=== PATIENT | female | born 1940 | race Caucasian/White ===

== ENCOUNTER 2019-08-08 10:21 | Inpatient (IN) | payer OTHER, SELFPAY ==
[2019-08-08] VITALS (28 sets, daily range): BP systolic 135–205; BP diastolic 61–129; PULSE 49–83; RESP 19–36; TEMP 34–37.1; O2SAT 84–100
--- NOTE | 2019-08-08 | ECHO_ITS ---
Patient Info Name: Jennifer Melendez Age: 78 years : 1940 Gender: Female BP: 192 / 98 mmHg Heart Rhythm: Sinus Rhythm Technical Quality: Good Exam Date: 08/08/2019 2:18 PM Exam Location: [facility] Pulmonary Patient Status: Inpatient Admit Date: 08/08/2019 Staff Ordering Physician: Semaj Chu DO Clinical Business Manager: Lio Hadley RDCS, RT Attending Provider: Neo Meyer MD Referring Physician: Vlad SOMMER; Exam Type: CA echo doppler color flow Study Info Indications I09.81 - Rheumatic heart failure Complete two-dimensional, color flow and Doppler transthoracic echocardiogram is performed. Summary 1. Left ventricular chamber dimension is mildly enlarged. 2. Left ventricular systolic function is severely reduced, estimated at 30-35%. 3. There is mildly increased left ventricular wall thickness. 4. The left ventricular diastolic function is grade III diastolic dysfunction. 5. The anterolateral wall, inferolateral wall, apical cap, and basal inferior wall are akinetic. 6. The anterior wall, apical inferior wall, and mid inferior wall are hypokinetic. 7. All other samuel appear normal. 8. Left atrial chamber dimension is mildly enlarged. 9. There is moderate aortic valve calcification. 10. There is mild aortic valve stenosis. 11. There is mild aortic valve regurgitation. 12. There is severe mitral valve regurgitation. 13. The mitral valve annulus is moderately calcified. 14. There is mild to moderate tricuspid valve regurgitation. 15. Severe pulmonary hypertension, estimated pulmonary arterial systolic pressure is 72 mmHg. 16. There is mild pulmonic regurgitation. 17. Pleural effusion is seen. Left Ventricle Left ventricular chamber dimension is mildly enlarged. Left ventricular systolic function is severely reduced, estimated at 30-35%. There is mildly increased left ventricular wall thickness. The left ventricular diastolic function is grade III diastolic dysfunction. The anterolateral wall, inferolateral wall, apical cap, and basal inferior wall are akinetic. The anterior wall, apical inferior wall, and mid inferior wall are hypokinetic. All other samuel appear normal. Right Ventricle Right ventricular chamber dimension is normal. Right ventricular systolic function is normal. Left Atria Left atrial chamber dimension is mildly enlarged. Right Atria Right atrial chamber dimension is normal. Atrial Septum Intact interatrial septum visualized by color flow imaging. Aortic Valve The aortic valve is trileaflet. There is mild aortic valve stenosis. There is mild aortic valve regurgitation. There is moderate aortic valve calcification. Pulmonic Valve The pulmonic valve is normal. There is no pulmonic valve stenosis. There is mild pulmonic regurgitation. Mitral Valve The mitral valve has thickened leaflets. There is no mitral valve stenosis. There is severe mitral valve regurgitation. The mitral valve annulus is moderately calcified. Tricuspid Valve The tricuspid valve leaflets are normal. There is no significant tricuspid valve stenosis. There is mild to moderate tricuspid valve regurgitation. Severe pulmonary hypertension, estimated pulmonary arterial systolic pressure is 72 mmHg. Other Findings Pleural effusion is seen. Pericardium/Pleural The pericardium appears normal. There is no pericardial effusion. Inferior Vena Cava Dilated inferior vena cava with <50% collapse upon inspiration consistent wi
--- NOTE | ~2019-08-08 | US_ITS ---
EXAMINATION: US renal BI DATE: 08/09/2019 10:07 INDICATION: Acute renal failure. TECHNIQUE: Multiple ultrasound grayscale images of the kidneys were obtained. COMPARISON: None. FINDINGS: The right kidney measures 9.7 x 4.6 x 4.7 cm. The left kidney measures 8.4 x 4.1 x 2.8 cm. The kidney s demonstrate increased parenchymal echogenicity, consistent with nonspecific nephropathy. There are cysts in the kidneys measuring up to 1.5 cm on the right. There is no hydronephrosis. The bladder is decompressed by a Castillo catheter. There is a small volume of ascites. IMPRESSION: 1. Mild atrophy of left kidney. No hydronephrosis. 2. Small volume of ascites. Reviewed, dictated and finalized at location A.
--- NOTE | ~2019-08-08 | XR_ITS ---
EXAMINATION: XR chest 1V portable DATE: 08/08/2019 11:07 INDICATION: Cough. Weakness. TECHNIQUE: A single frontal view of the chest was obtained. COMPARISON: None. FINDINGS: There are small right and moderate-sized left pleural effusions. There are airspace opaciti es in the perihilar regions and at the lung bases. No pneumothorax. Cardiomegaly is noted. IMPRESSION: 1. Airspace opacities in the perihilar regions and at the lung bases, likely a combination of pulmona ry edema and atelectasis. 2. Small right and moderate-sized left pleural effusions. 3. Cardiomegaly. Reviewed, dictated and finalized at location A. IMPRESSION: 1. Airspace opacities in the perihilar regions and at the lung bases, likely a combination of pulmonary edema and atelectasis. 2. Small right and moderate-sized left pleural effusions. 3. Cardiomegaly.
--- NOTE | ~2019-08-08 | XR_ITS ---
EXAMINATION: XR chest 1V portable DATE: 08/09/2019 05:55 INDICATION: Respiratory failure. TECHNIQUE: A single frontal view of the chest was obtained. COMPARISON: Chest single view 08/08/2019 FINDINGS: There are small right and moderate-sized left pleural effusions. There is a diffuse interst itial pattern in the lungs, consistent with pulmonary edema. There are airspace opacities in the lowe r lobes and lingula. No pneumothorax. Cardiomegaly is noted. The endotracheal tube tip is 2.0 cm abov e the terell. The nasogastric tube tip is in the stomach. IMPRESSION: 1. Stable small right and moderate-sized left pleural effusions. 2. Worsened airspace opacities in the lower lobes and lingula, consistent with atelectasis versus pne umonia. 3. Mild pulmonary edema. 4. Cardiomegaly. Reviewed, dictated and finalized at location A. IMPRESSION: 1. Stable small right and moderate-sized left pleural effusions. 2. Worsened airspace opacities in the lower lobes and lingula, consistent with atelectasis versus pneumonia. 3. Mild pulmonary edema. 4. Cardiomegaly.
--- NOTE | ~2019-08-08 | MR_ITS ---
EXAMINATION: MRA neck wo con, MRA brain wo con DATE: 08/15/2019 08:32 INDICATION: Stroke TECHNIQUE: 1. Magnetic resonance angiography (MRA) of the brain was performed without intravenous contrast with T1-weighted SPGR by the 3D [id number] technique. 2. Magnetic resonance angiography (MRA) of the neck was performed without intravenous contrast. Seque nces included axial 3D-time of flight T1-weighted FSPGR and axial Inhance 3D without intravenous con trast. COMPARISON: Brain MR and carotid ultrasound both dated 08/14/2019 FINDINGS: Head MRA: Left vertebral artery is dominant. Bilateral A1 and P1 segments are patent. There is asymmetric appea roger to the bilateral P1 segments with oriented decreasing signal intensity along the left posterior cerebral artery suggesting sluggish flow which could be related to a nonvisualized more distal occlu mark or significant stenosis. Suggestion of plaque with no hemodynamically, <50% significant stenoses at the bilateral carotid siphons. There is curvilinear increased signal consistent with laminar necr osis at the bilateral occipital lobes and along the right frontal lobe gyrus which also demonstrated acute infarction with restricted diffusion on the prior MRI. Postoperative change of prior suboccipit al craniectomy with small region of underlying encephalomalacia in the right cerebellum which could b e related to prior infarct, surgery or trauma. Neck MRA: 0% stenosis of both the left and right carotid bulbs relative to normal distal artery lumen diameter (NASCET criteria). There is however some motion artifact at the level of the carotid bulbs on both th e 3-D dryw-av-evezmw and enhance images and small amount of nonhemodynamically significant plaque cou ld not be excluded. Incidentally noted 2.6 cm left thyroid mass. Moderate-sized bilateral posterior l ayering pleural effusions. IMPRESSION: 1. 0% stenosis of the left and right right carotid bulbs relative to normal distal artery lumen diame ter (NASCET criteria). 2. Gradient of increasing signal intensity on the left posterior cerebral artery suggesting sluggish flow due to a nonvisualized downstream occlusion or hemodynamically significant stenosis. 3. Regions of laminar necrosis consistent with prior infarct at the bilateral occipital lobes and chilo ng the right frontal lobe gyrus. 4. Small region of encephalomalacia in the right cerebellar hemisphere underlying the prior right sub occipital craniectomy and this could represent sequela of prior infarct, trauma or surgery. 5. Moderate-sized bilateral pleural effusions. 6. 2.6 cm left thyroid nodule. Could consider thyroid ultrasound as clinically indicated and when cli nically appropriate. Reviewed, dictated and finalized at location A. IMPRESSION: 1. 0% stenosis of the left and right right carotid bulbs relative to normal dis jeanna artery lumen diameter (NASCET criteria). 2. Gradient of increasing signal intensity on the left posterior cerebral arter y suggesting sluggish flow due to a nonvisualized downstream occlusion or hemod ynamically significant stenosis. 3. Regions of laminar necrosis consistent with prior infarct at the bilateral o ccipital lobes and along the right frontal lobe gyrus. 4. Small region of encephalomalacia in the right cerebellar hemisphere underlyi ng the prior right suboccipital craniectomy and this could represent sequela of prior infarct, trauma or surgery. 5. Moderate-sized bilateral pleural effusions. 6. 2.6 cm left thyroid nodule. Could consider thyroid ultrasound as clinically indicated and when clinically appropriate.
--- NOTE | ~2019-08-08 | XR_ITS ---
EXAMINATION: XR chest ET placement EXAM DATE: 08/08/2019 18:22 INDICATION: Respiratory failure. TECHNIQUE: Portable AP frontal chest x-ray was obtained. Comparison is made to prior examination from earlier same date. FINDINGS: Endotracheal tube tip is 4 centimeters above the terell (ideal range is between 2 to 5 cm). Feeding tube tip and side-port project over left upper quadrant, adequate. There is moderate amount of right perihilar, and left basilar edema and/or pneumonia. Small to moder ate left, small right pleural effusions. There is no pneumothorax suspected. The cardiomediastinal silhouette is prominent but magnified on this AP technique. The bones and soft tissues are unremar kable. There is no significant interval change compared to prior exam. IMPRESSION: 1. NG and ET tubes in position. 2. Moderate edema and/or pneumonia. 3. Small to moderate left, small right pleural effusions. Reviewed, dictated and finalized at location A.
--- NOTE | ~2019-08-08 | XR_ITS ---
XR chest 1V portable 08/12/2019 06:29 Indication: Respiratory failure Procedure: AP portable chest Comparison: Comparison to multiple prior studies sequentially, with oldest reviewed study dated 08/07. Findings: Endotracheal tube tip 2.2 cm above the terell. Recommend retraction approximately 2 cm. Car diomegaly. There is diffuse bilateral airspace disease without significant change. Small left pleural effusion. No pneumothorax. Impression: 1: No significant change to diffuse bilateral airspace disease which may represent pneumonia or edema . 2: Small left pleural effusion. 3: Cardiomegaly. Reviewed, dictated and finalized at location A. Impression: 1: No significant change to diffuse bilateral airspace disease which may repres ent pneumonia or edema. 2: Small left pleural effusion. 3: Cardiomegaly.
--- NOTE | ~2019-08-08 | XR_ITS ---
XR chest 1V portable 08/08/2019 12:52 Indication: Ventricular tachycardia Procedure: AP portable chest Comparison: 08/08/2019 Findings: Cardiomegaly with diffuse bilateral airspace disease, likely edema. Small effusion. No acut e osseous abnormality. Impression: 1: Diffuse bilateral airspace disease, likely edema. Pneumonia less favored. 2: Small effusions. 3: Cardiomegaly. Reviewed, dictated and finalized at location A. Impression: 1: Diffuse bilateral airspace disease, likely edema. Pneumonia less favored. 2: Small effusions. 3: Cardiomegaly.
--- NOTE | ~2019-08-08 | XR_ITS ---
EXAMINATION: XR abdomen NG/feed tube insert EXAM DATE: 08/08/2019 18:22 INDICATION: Feeding tube insertion. TECHNIQUE: Frontal projection(s) of the abdomen for interpretation. There is no prior study for andrew douglas. FINDINGS: Feeding tube tip and side-port project over left upper quadrant, adequate position. Nonobs tructive upper abdominal bowel gas pattern. Small central left, small pleural effusions. Basilar airs pace disease. IMPRESSION: feeding tube in position. Reviewed, dictated and finalized at location A. IMPRESSION: feeding tube in position.
--- NOTE | ~2019-08-08 | XR_ITS ---
XR chest 1V portable 08/11/2019 06:27 Indication: Respiratory failure Procedure: AP portable chest Comparison: Comparison to multiple prior studies sequentially, with oldest reviewed study dated 08/07. Findings: Endotracheal tube tip 2.4 cm above the terell. NG tube in the stomach. Mild cardiomegaly. I mproving diffuse bilateral airspace disease. Small pleural effusions. No pneumothorax. Impression: 1: Improving bilateral airspace disease which may represent resolving edema or pneumonia. 2: Small pleural effusions. Reviewed, dictated and finalized at location A. Impression: 1: Improving bilateral airspace disease which may represent resolving edema or pneumonia. 2: Small pleural effusions.
--- NOTE | ~2019-08-08 | CT_ITS ---
EXAMINATION: CT brain wo con DATE: 08/14/2019 12:10 INDICATION: Left-sided weakness. Confusion. TECHNIQUE: Computed tomography (CT) of the head was performed without intravenous contrast. The dose- length product was 605.33 mGy-cm. The mA was adjusted according to patient size. Iterative reconstruc tion technique was employed. COMPARISON: None FINDINGS: There is right occipital craniectomy. Generalized atrophy. Chronic right occipital lobe inf arction. Chronic right cerebellar infarction. There are scattered moderate periventricular and subcor tical white matter changes, most likely related to small vessel ischemic disease (microangiopathy). C hronic right frontal lobe infarction. No acute intracranial hemorrhage, infarction, mass or mass effe ct. There is intracranial atherosclerosis. No midline shift. Paranasal sinuses and mastoids are pneum atized. Minimal mucosal thickening right sphenoid sinus. No depressed skull fractures. IMPRESSION: 1. No acute intracranial abnormality. 2: Chronic right frontal, occipital and cerebellar infarctions. Status post right occipital craniect win. 3: Chronic age-related findings. Reviewed, dictated and finalized at location A. IMPRESSION: 1. No acute intracranial abnormality. 2: Chronic right frontal, occipital and cerebellar infarctions. Status post ri ght occipital craniectomy. 3: Chronic age-related findings.
--- NOTE | ~2019-08-08 | XR_ITS ---
XR chest 1V portable 08/15/2019 15:26 Indication: Pneumonia. Procedure: AP portable chest Comparison: Comparison to multiple prior studies sequentially, with oldest reviewed study dated 04/2019. Findings: Cardiomegaly. Diffuse bilateral airspace disease. Small pleural effusions. No pneumothorax. Impression: 1: Diffuse bilateral airspace disease has progressed, most likely edema. Pneumonia less favored. 2: Small pleural effusions. 3: Cardiomegaly. Reviewed, dictated and finalized at location A. Impression: 1: Diffuse bilateral airspace disease has progressed, most likely edema. Pneumo elvis less favored. 2: Small pleural effusions. 3: Cardiomegaly.
--- NOTE | ~2019-08-08 | US_ITS ---
EXAMINATION: US carotid duplex BI EXAM DATE: 08/14/2019 17:13 INDICATION: Stroke. TECHNIQUE: Grayscale, color and pulsed Doppler images of the cervical carotid arteries were obtained . The degree of vessel stenosis is placed in one of the following categories: normal, <50% stenosis, 50-69% stenosis, >=70% stenosis but less than near-occlusion, near-occlusion, or occlusion. Note that percent stenosis relative to normal distal artery lumen diameter is indirectly measured from velocit y measurements as described by Jose A, et al. Radiology 2003; [id number]:[id number]. There is no prior study fo r comparison. FINDINGS: RIGHT SIDE: Right common carotid artery peak systolic velocity (PSV in cm/s): 56 Right bulb/internal carotid artery peak systolic velocity (PSV in cm/s): 47 Right internal carotid artery end diastolic velocity (EDV in cm/s): 18 Right ICA/CCA peak systolic ratio: 0.9 Right external carotid artery peak systolic velocity (PSV in cm/s): 92 Right vertebral artery antegrade flow: yes There is moderate carotid bulb plaque. Velocity and Doppler waveforms in the common and internal carotid arteries is normal. LEFT SIDE: Left common carotid artery peak systolic velocity (PSV in cm/s): 40 Left bulb/internal carotid artery peak systolic velocity (PSV in cm/s): 76 Left internal carotid artery end diastolic velocity (EDV in cm/s): 8.4 Left ICA/CCA peak systolic ratio: 1.9 Left external carotid artery peak systolic velocity (PSV in cm/s): 89 Left vertebral artery antegrade flow: yes There is mild carotid bulb plaque. Velocity and Doppler waveforms in the common and internal carotid arteries is normal. IMPRESSION: 1. Less than 50 percent stenosis in the right internal carotid artery. 2. Less than 50 percent stenosis in the left internal carotid artery. > Reviewed, dictated and finalized at location A.
--- NOTE | ~2019-08-08 | US_ITS ---
EXAMINATION: US venous doppler [facility] DATE: 08/10/2019 12:46 INDICATION: Respiratory failure. Positive d-dimer. TECHNIQUE: Grayscale ultrasound images without and with compression and Doppler ultrasound images of the bilateral lower extremity veins were obtained. COMPARISON: None. FINDINGS: The visualized portions of right common femoral vein, profunda (deep) femoral vein, femoral vein, pop liteal vein, posterior tibial veins, peroneal veins, and greater saphenous vein outflow are patent. Linear shadowing likely central venous catheter is seen within the left common femoral vein. The visu alized portions of left common femoral vein, profunda femoral vein, femoral vein, popliteal vein, pos terior tibial veins, peroneal veins, and greater saphenous vein outflow are patent. IMPRESSION: 1. No deep venous thrombosis in either lower limb. Reviewed, dictated and finalized at location A.
--- NOTE | ~2019-08-08 | XR_ITS ---
EXAMINATION: XR chest 1V portable DATE: 08/10/2019 06:12 INDICATION: Respiratory failure TECHNIQUE: frontal view of the chest was obtained. COMPARISON: Chest radiograph dated 08/09/2019 FINDINGS: Endotracheal tube tip 2.0 cm above the terell. Nasogastric tube extends below the left hemidiaphragm with distal tip collimated off the study. Gradient of basilar predominant hazy airspace opacities projecting over the majority of both lungs co nsistent with moderate right and small to moderate left posteriorly layering pleural effusions. More dense opacities at the lower lung zones which could represent associated atelectasis and/or pneumonia . No pneumothorax. Borderline heart size. IMPRESSION: 1. Moderate-sized right and small to moderate left pleural effusions which along with associated biba silar atelectasis and/or pneumonia appear slightly increased. 2. Borderline heart size. Reviewed, dictated and finalized at location A. IMPRESSION: 1. Moderate-sized right and small to moderate left pleural effusions which kaur g with associated bibasilar atelectasis and/or pneumonia appear slightly increa sed. 2. Borderline heart size.
--- NOTE | ~2019-08-08 | XR_ITS ---
EXAMINATION: XR chest 1V portable DATE: 08/13/2019 05:58 INDICATION: Respiratory failure TECHNIQUE: frontal view of the chest was obtained. COMPARISON: Chest radiograph dated 08/12/2019 FINDINGS: No significant interval change in bilateral perihilar and left basilar predominant opacities. Small b ilateral pleural effusions. No pneumothorax. Borderline heart size accounting for AP technique. IMPRESSION: 1. Unchanged bilateral airspace disease which could represent pulmonary edema and/or pneumonia. 2. Small bilateral pleural effusions. 3. Borderline heart size. Reviewed, dictated and finalized at location A. IMPRESSION: 1. Unchanged bilateral airspace disease which could represent pulmonary edema a nd/or pneumonia. 2. Small bilateral pleural effusions. 3. Borderline heart size.
--- NOTE | ~2019-08-08 | US_ITS ---
EXAMINATION: US right upper quadrant DATE: 08/09/2019 10:06 INDICATION: Abnormal liver function tests. TECHNIQUE: Multiple grayscale and Doppler ultrasound images of the abdomen were obtained. COMPARISON: None FINDINGS: The visualized portions of the head, body, and tail of the pancreas are normal. The liver i s normal without focal lesion. No liver surface nodularity. There is normal flow in main portal vein. The gallbladder is absent. The common duct is normal and measures 8 mm. There is a small volume of p erihepatic ascites. IMPRESSION: 1. Small volume of perihepatic ascites. Reviewed, dictated and finalized at location A.
--- NOTE | ~2019-08-08 | MR_ITS ---
EXAMINATION: MR brain/brain stem wo con EXAM DATE: 08/14/2019 14:26 INDICATION: Craniectomy. History of brain tumor removal. TECHNIQUE: Magnetic resonance imaging (MRI) of the brain/brain stem obtained without contrast. Sagitt al T1, axial diffusion, gradient echo (T2*), T1, T2, FLAIR sequences obtained. Correlation is made t o head CT from earlier same date. FINDINGS: There are surgical changes from right suboccipital craniectomy, with some small foci of gas in the craniectomy surgical bed better visualized on head CT. There is restricted diffusion, small scattered foci of acute infarctions in the left occipital lobe. There is also small to moderate-sized acute infarction in the right frontal lobe. These are probably 1-3 days in age. 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 There is moderate microangiopathy an d cerebral atrophy. No acute intracranial hemorrhage or brain mass. Bilateral cataract surgery. No ex tra-axial collections or obstructive hydrocephalus. Flow voids are seen in the cerebral arteries on t he T2 weighted sequences consistent with their expected patency. The soft tissue is unremarkable. IMPRESSION: 1. Acute small scattered left occipital lobe infarctions. 2. Acute small to moderate-sized right frontal lobe infarction. 3. 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 4. Atrophy and microangiopathy. Reviewed, dictated and finalized at location A.
--- NOTE | 2019-08-08 10:54 | ECG_ITS ---
Measurements Intervals [place] Rate: 52 P: 30 [place]: 152 QRS: 59 QRSD: 108 T: 19 QT: 492 QTc: 459 Interpretive Statements SINUS BRADYCARDIA INFERIOR ST ELEVATION MYOCARDIAL INFARCT- CONSIDER ACUTE LATERAL ST ELEVATION- CONSIDER ACUTE INJURY ABNORMAL ECG Electronically Signed On 08-08-2019 13:30:38 CDT by Joseluis Barahona D.O.
[2019-08-08] MEDS: SODIUM CHLORIDE 0.9% IV 1,000 ML 999 ML IV CONT (11:06)
[2019-08-08 11:13] LABS: Basophils Percent Auto 0.2 % (0.2-1.2); Eosinophils Percent Auto 0.2 % (0-4.4); Hemoglobin 9.9 g/dL (12.0-15.0); Immature Granulocyte Percent A 0.8 % (0-0.5); Lymphocytes Absolute Auto 1.72 K/mm3 (0.9-3.2); Lymphocytes Percent Auto 13.6 % (18.3-44.2); Mean Corpuscular HGB Conc 30.9 g/dl (32-36); Mean Corpuscular Hemoglobin 26.7 pg (26-34); Mean Corpuscular Volume 86.3 fl (80-100); Mean Platelet Volume 9.9 fl (7.4-10.4); Monocytes Absolute Auto 0.8 K/mm3 (0.1-0.6); Monocytes Percent Auto 6.4 % (2.6-8.5); Neutrophils Percent Auto 78.8 % (45.5-73.1); Nucleated Red Blood Cells Perc 0.3 % (0.0-0.2); Platelet Count Result 408 k/mm3 (150-375); Red Blood Count 3.71 M/mm3 (4.2-5.4); Red Cell Distribution Width 14.6 % (11.5-14.5); White Blood Count 12.6 K/mm3 (4.5-10.0)
[2019-08-08 11:25] LABS: Alanine Aminotransferase 369 U/L (4-35); Albumin Level 3.7 g/dL (3.5-5.1); Alkaline Phosphatase 109 U/L (38-126); Aspartate Amino Transferase 592 U/L (14-36); Bilirubin,Total 1.3 mg/dL (0.2-1.3); Blood Urea Nitrogen 59 mg/dL (7-17); Calcium 9.5 mg/dL (8.4-10.2); Carbon Dioxide 26 mmol/L (22-30); Chloride 100 mmol/L (98-107); Estimated Glomerular Filt Rate 15; Glucose 113 mg/dL (65-105); INR 1.5; Potassium 5.7 mmol/L (3.4-5.0); Sodium 135 mmol/L (137-145)
[2019-08-08 11:26] LABS: Partial Thromboplastin Time 27.3 SECONDS (22.3-36.8)
[2019-08-08 11:47] LABS: NT Pro B Type Natriuretic Pept > 35000 PG/ML (5-100)
[2019-08-08 11:49] LABS: Add Urine Microscopic? YES; Amorphous Sediment Urine Few; Appearance Urine Cloudy (Clear); Bacteria Urine 2+ /hpf; Bilirubin Urine Negative (Negative); Blood Urine 1+ (Negative); Color Urine Yellow (Yellow); Glucose Urine UA Negative (Negative); Ketones Urine Negative (Negative); Leukocyte Esterase Ur Negative LEU/UL (Negative); Mucus Urine Rare /lpf; Nitrate Urine Negative (Negative); Protein Urine 3+ mg/dL (Negative); RBC Urine 0-2 /hpf (0-2); Specific Grav Ur 1.019 (1.001-1.035); Urobilinogen Urine Negative mg/dL (<2.0)
[2019-08-08] MEDS: ASPIRIN 81 MG CHEWABLE TABLET 324 MG PO (12:25)
[2019-08-08] MEDS: DEXTROSE 50% 25 GM/50 ML SYRINGE IV PUSH (12:26)
[2019-08-08] MEDS: SODIUM BICARBONATE 8.4% 50 MEQ/50 ML VIAL IV PUSH (12:26)
[2019-08-08] MEDS: INSULIN HUMAN REGULAR (*BKC) 100 UNITS/ML 10 UNITS IV PUSH (12:26)
--- NOTE | 2019-08-08 12:33 | ED.GENADULT ---
HPI - General Adult General Chief complaint: Recheck/Abnormal Lab/Rx Stated complaint: Weakness Time Seen by Provider: 08/08/19 10:35 Source: RN notes reviewed History of Present Illness HPI narrative: Patient presents to emergency department from home for abnormal lab test. Patient states that she has been feeling weak for the past 5 days. States that only other associated symptom is mild shortness of breath but denies any current shortness of breath. She states she was seen by her PCP and had blood work drawn at [facility] yesterday and was called by her primary care physician and recommended come to the emergency department secondary to kidney and liver enzymes. The patient denies any fevers or chills cough chest pain abdominal pain nausea or vomiting or any other symptoms. Related Data Home Medications Medication Instructions Recorded Confirmed cimetidine 08/08/19 levothyroxine 08/08/19 metoprolol tartrate 08/08/19 quinapril mg 08/08/19 Allergies Allergy/AdvReac Type Severity Reaction Status Date / Time No Known Allergies Allergy Verified 08/08/19 11:07 Review of Systems Review of Systems: Narrative: Gen.: Denies fevers or chills Eyes: Denies eye pain or visual change ENT: Denies congestion Respiratory: Reports shortness of breath denies cough CV: Denies chest pain or palpitations GI: Denies abdominal pain nausea, emesis or diarrhea denies burning, urgency, frequency or hematuria Musculoskeletal: Denies back pain or muscle pain Neuro: Denies numbness, tingling, reports weakness Skin: Denies rash Except as documented, all other systems reviewed and negative [facility] Past Medical History Medical History CAD (coronary artery disease) Chronic kidney disease Hyperlipidemia Hypertension Family History Family History (Updated 08/08/19 @ 14:12 by Zechariah Lazaro MD) Father Acute myocardial infarction Mother Heart disease congestive heart failure Social History Social History Smoking status: Never smoker Alcohol intake: never Gender identity (if verbalized by the patient): Female Exam Narrative: Exam Narrative: APPEARANCE: No acute distress, nontoxic, resting in bed EYES: EOMI HEENT: Normocephalic, atraumatic, OMM RESPIRATORY: No respiratory distress coarse breath sounds bilateral lung bases, no wheezing CARDIOVASCULAR: Regular rate and rhythm without murmurs rubs or gallops. ABDOMINAL: Soft, nontender, nondistended, no rebound or guarding MUSCULOSKELETAl: Moves all extremities. No clubbing, cyanosis or edema. NEURO: Awake and alert. Following commands, speech normal, no focal deficits SKIN:: Warm, dry. No rashes lesions or abrasions PSYCHIATRIC: Normal affect/mood, Course Course Emergency Course: Patient with initial EKG showing questionable nonspecific ST changes in the inferior leads. The patient states she does have a history of coronary artery disease with stent placement 20 years ago. She denies having any chest pain. I did call and discussed with darrel Toney the patient's EKG and an EKG was shown to darrel Toney as well as I did take the EKG to Dr. Figueroa who personally reviewed the EKG. At this time with the patient having no chest pain it is felt that this is likely chronic change and does not feel that he meets criteria for acute STEMI Called and discussed with Dr. abelentation work-up. Agrees with admission at this time. Recommends COVID test be obtained : Discussed Dr. Rangel presentation and work-up. Agrees with consult. Request patient received Lasix 40 mg x 1. Agrees with plan for Kayexalate bicarb insulin and dextrose. Patient with sudden onset of V. tach. CODE BLUE was called. The patient was hooked up on monitor and was defibrillated x1 with return to normal sinus rhythm. The approximate approximate total time of the code was approximate
--- NOTE | 2019-08-08 12:40 | PC.NURSE ---
Addendum entered by Volodymyr Hodges RN 08/08/19 14:28: Correction Pt. went into ventricular tachycardia not v fib. Original Note: 1235 After medication administration, Pt. clinched and went into ventricular fibrilation. EDP notified karen chapman called, CPR initiated. 1237 1 shock given at 200J, compressions resumed, suctioned airway, Pt. is being ventilated via BVM. 1239 pulse check, pulse present. Compressions stopped. Pt. breathing on their own with 15L NRB. Repeat EKG ordered with repeat chest x ray.
--- NOTE | 2019-08-08 12:50 | PC.NURSE ---
Pt. weaned to 3L via nasal cannula instead of NRB. Pt. tolerating well, 99% at this time
[2019-08-08 12:57] LABS: Glucose Point of Care 100 (65-105)
[2019-08-08] MEDS: CALCIUM GLUCONATE 1,000 MG/10 ML VIAL 1000 MG IV PUSH (13:09)
[2019-08-08 13:12] LABS: D Dimer 3.66 ug/mL (<0.48)
--- NOTE | 2019-08-08 13:46 | PC.NURSE ---
Per EDP hold on giving IV Lasix and sodium polystyrene sulfonate suspension.
[2019-08-08] MEDS: HEPARIN SODIUM 5,000 UNITS/ML VIAL 2500 UNITS IV PUSH (13:59)
--- NOTE | 2019-08-08 13:59 | PM.CNCAR ---
Assessment and Plan Assessment and plan (1) Acute coronary syndrome: Code(s): I24.9 - Acute ischemic heart disease, unspecified Status: Acute Assessment and Plan: it appears to be a delayed presentation ST-elevation inferior myocardial infarction. Likely started 4-5 days ago. Will give aspirin 325 mg p.o. x1 as well as 5000 units of heparin. Case was discussed with Dr. 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 Stat 2D echocardiogram Doppler will be performed in interim. (2) History of cardiac arrest: Code(s): Z86.74 - Personal history of sudden cardiac arrest Status: Acute Assessment and Plan: ACS versus hyperkalemia versus both (3) Hyperkalemia: Code(s): E87.5 - Hyperkalemia Status: Acute (4) Acute kidney injury superimposed on chronic kidney disease: Code(s): N17.9 - Acute kidney failure, unspecified; N18.9 - Chronic kidney disease, unspecified Status: Acute Assessment and Plan: unknown baseline creatinine but she does see Dr. 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 History of Present Illness History of Present Illness Consult date/time: 08/08/19 13:59 Requesting physician: Semaj Chu DO Consult reason: Other ( abnormal labs, abnormal EKG, elevated troponin) Reason For Visit: acute renal failure,hyperkalemia,elevated troponin Narrative: patient is a 78-year-old female who I am seeing following a VF arrest in the ER. She came to the hospital because of abnormal labs . She had labs performed by her primary care provider yesterday which came back showing an elevated potassium, elevated creatinine. EKG showed inferior Q-waves with mild inferior ST elevation and some ST depressions in the high lateral leads. EKG was reviewed by Dr. Figueroa initially. Patient reportedly was not having any symptoms at that time. It was decided not to bring her immediately to the cardiac catheterization lab at that time. Subsequently, patient did sustain a VF arrest requiring standard ACLS and latter day of normal sinus rhythm. Currently she is awake and alert and oriented. Patient states that she has being feeling poorly for about 5 days. Upon detailed questioning, patient states she started have some heartburn symptoms about 4 or 5 days ago. It persisted for couple of days. Not relieved by antacids. She does have a history of previous RCA stent about 20 years ago and did have a subsequent catheterization at [facility]. Details of this are not known. This catheterization was several years ago she states. She had seen Dr. Hayes in the past but has not seen him in several years. Currently she is not having any chest pain or heartburn at this point. She is somnolent but does answer questions. She denies any significant shortness of breath, syncope, presyncope, paroxysmal nocturnal dyspnea, orthopnea, edema palpitations. Review of Systems Review of Systems: All systems reviewed & are unremarkable except as noted in HPI and below Constitutional: Constitutional: Reports weakness Eyes: Eyes: Denies blurry vision ENT: Denies Normal hearing present Cardiovascular: Cardiovascular: Denies chest pain Respiratory: Respiratory: Denies cough
--- NOTE | 2019-08-08 14:11 | WPDCNINT ---
Assessment and Plan Assessment and plan (1) Acute coronary syndrome: Code(s): I24.9 - Acute ischemic heart disease, unspecified Status: Acute Assessment and Plan: Patient appears to had IN few days ago when she when she was symptomatic and now presented late. Discuss with cardiology. Will be taken to label operator emergently in light of her arrhythmias and cardiogenic shock state despite her creatinine being elevated to see if there is any area that could be perfused. Stat echo ordered Aspirin beta-reba will be started post catheterization depending on her blood pressure hold statins due to elevated liver enzymes (2) CAD (coronary artery disease): Code(s): I25.10 - Atherosclerotic heart disease of [place] coronary artery without angina pectoris Status: Acute Assessment and Plan: history of coronary artery disease status post PCI in distant past. details unknown (3) Acute kidney injury superimposed on chronic kidney disease: Code(s): N17.9 - Acute kidney failure, unspecified; N18.9 - Chronic kidney disease, unspecified Status: Acute Assessment and Plan: KINGA precipitated over CKD likely multifactorial from cardiogenic and patient was on WES-inhibitor consult nephrology monitor electrolytes urine output and creatinine cautious slow IV fluids with bicarb at this point due to pulmonary edema (4) Hyperkalemia: Code(s): E87.5 - Hyperkalemia Status: Acute Assessment and Plan: patient received IV calcium gluconate, insulin and dextrose, sodium bicarb will repeat BMP once she is back from label operator and re-evaluate will also give dose of Kayexalate (5) Hyperlipidemia: Code(s): E78.5 - Hyperlipidemia, unspecified Status: Acute Assessment and Plan: statin when patient is able to take p.o. (6) Hypertension: Code(s): I10 - Essential (primary) hypertension Status: Acute Assessment and Plan: Nitroglycerin infusion (7) Suspected COVID-19 virus infection: Code(s): R68.89 - Other general symptoms and signs Status: Acute Assessment and Plan: COVID-19 suspected. SARS-CoV-2 PCR sent and results pending Patient is in Airborne, Droplet and Contact Isolation (8) Elevated transaminase level: Code(s): R74.0 - Nonspecific elevation of levels of transaminase and lactic acid dehydrogenase [LDH] Status: Acute Assessment and Plan: likely from hypoperfusion monitor this time hold statin check acute hepatitis panel (9) Cardiogenic shock: Code(s): R57.0 - Cardiogenic shock Status: Acute Assessment and Plan: patient is actually hypertensive but may have low cardiac output. will have more information once cardiac catheterization and echo results are available Additional Plan Case discussed with cardiology and ED physician. DVT prophylaxis - patient is on heparin drip at this time Stress ulcer prophylaxis - not indicated Nutrition - NPO. Code Status - Full Code I spoke to patient's at bedside who requested the patient be kept full code. I explained patient's current clinical situation and therapeutic plan and risk of her kidneys getting worse with cardiac catheterization and that she may may be needing dialysis if renal function does not improve. Total Critical Care Time - 60 minutes Due to a high probability of clinically significant, life threatening deterioration, the patient required my highest level of preparedness to intervene emergently and I personally spent this critical care time directly and personally managing the patient. This critical care time included obtaining a history; examining the patient; pulse oximetry; ordering and review of studies; arranging urgent treatment with development of a management plan; evaluation of patient's response to treatment; frequent reassessment; and discussions with other providers. It was exclusive of separate
--- NOTE | 2019-08-08 14:19 | ECG_ITS ---
Measurements Intervals [place] Rate: 82 P: 73 SD: 151 QRS: 83 QRSD: 112 T: -45 QT: 397 QTc: 466 Interpretive Statements SINUS RHYTHM POSSIBLE LEFT ATRIAL ENLARGEMENT INFERIOR ST ELEVATION MYOCARDIAL INFARCT, PROBABLY RECENT LATERAL ST ELEVATION- CONSIDER RECENT INJURY BASELINE WANDER- I, III, V4-V5 ABNORMAL ECG Electronically Signed On 08-08-2019 15:34:24 CDT by Joseluis Barahona D.O.
--- NOTE | 2019-08-08 15:19 | WPDCARDPROC ---
Cardiac Cath Procedure Note Date of procedure:: 08/08/19 Performing physician:: Darius Flowers MD Procedure Procedure note:: EMERGENT CARDIAC CATHETERIZATION AND PERCUTANEOUS CORONARY INTERVENTION REPORT DATE OF PROCEDURE: 08/08/2019 INDICATION FOR PROCEDURE: ACUTE CORONARY SYNDROME- inferolateral ST-elevation myocardial infarction; ventricular tachycardia status post successful resuscitation/ shock x1 BRIEF CLINICAL HISTORY: 78-year-old female with CAD, history of remote PCI/stenting of right coronary artery ( at outside hospital, intervention report not available), hypertension. Patient came to [facility] emergency room with complaints of generalized weakness and shortness of breath. Apparently, she was called by her primary care physician about abnormal lab test . Her 1st EKG performed at 10:58 a.m. in the ER showed sinus rhythm, ST segment elevation in leads 3, AVF, subtle ST elevation in leads V5, V6, reciprocal ST depression in leads 1 and aVL. Apparently, based on the information provided, patient was initially not deemed to have clinical presentation consistent with ACS . While patient was being evaluated in the ER, she had sustained ventricular tachycardia which required shock x1 with restorationist of sinus rhythm. Dr. Lazaro called me at 1331 about patient's clinical presentation, and we activated the cardiac catheterization lab for emergent cardiac catheterization. PROCEDURES PERFORMED: 1. Selective left and right coronary angiogram 2. Primary percutaneous coronary intervention- balloon angioplasty and stenting of totally occluded mid left circumflex artery using a 3.0 x 18 mm sirolimus eluting stent with good angiographic results and restorationist of TEODORA 3 flow. 3. Selective right common femoral angiogram and deployment of Angio-Seal hemostatic device 4. Moderate sedation-CPT code 43886 MODERATE SEDATION: Midazolam 1 mg; fentanyl 25 mcg. Start time 1431 , Stop time 1508 ; Total [id number] time 37 Minutes; Madai Valdez RN was trained observer for moderate sedation. ACCESS SITE: Right common femoral artery PROCEDURE NOTE: After obtaining informed consent, patient was brought to catheterization lab and prepped and draped in a usual sterile manner. After local anesthesia with lidocaine, right common femoral artery access was taken with micropuncture needle followed by insertion of a 6 Spanish sheath. Selective left and right coronary angiogram was performed using 5 Spanish JL4 and JR4 catheters respectively. Orthogonal views were taken. left ventriculogram was not performed to spare the patient from contrast burden due to renal insufficiency. Finally, after PCI, selective right common femoral angiogram was performed after PCI followed by successful deployment of Angio-Seal vascular closure device. Patient tolerated procedure well without any immediate procedure related complications. FINDINGS: LEFT MAIN CORONARY: the left main coronary artery is a medium caliber, long vessel, withminimal irregularities, and no significant focal stenosis. The vessel bifurcates into LAD and left circumflex branches. LEFT ANTERIOR DESCENDING ARTERY: The LAD is a medium-sized vessel, with diffuse disease, tapers distally and reaches LV apex. There is diffuse about 70% stenosis in the mid segment distal to the diagonal branch. Two tandem, focal stenosis, about 40-50% severity are seen in the mid segment. Major diagonal branch is a medium-sized vessel with moderate 50-70% stenosis in the mid segment. Second diagonal branch is a small-caliber vessel. [id number] collaterals are seen on the left coronary angiogram LEFT CIRCUMFLEX ARTERY: the left circumflex artery is a medium-sized vessel; with 100% thrombotic occlusion in the mid segment and TEODORA 1 flow into the OM branch. This lesion is the culprit lesion for patient's clinical presentation. The OM branch is a medium to large caliber vessel. The main LCX continues in the AV
[2019-08-08 16:57] LABS: Alveolar/Arterial O2 Gradient 207.8 mmHg; Base Excess ABG -6.9 mEq/l (+/-2.0); Device NASAL CANNULA; Fractional Inspired Oxygen 44 %; HCO3 ABG 17.8 mEq/l (22.0-26.0); Modified Allen's Test Pass; Oxygen Content ABG 13.6 %vol (16.0-22.0); Oxygen Saturation ABG 93.2 % (95.0-100.0); Oxyhemoglobin 89.8 % THb (90.0-100.0); PCO2 ABG 32.7 mmHg (35.0-45.0); PO2 ABG 68.6 mmHg (80.0-100.0); PO2 FiO2 Ratio Arterial Blood 1.56 %; Site Drawn RIGHT RADIAL; Total Hemoglobin 10.7 g/dL (12.0-18.0); pH ABG 7.353 (7.350-7.450)
--- NOTE | 2019-08-08 17:14 | ECG_ITS ---
Measurements Intervals [place] Rate: 48 P: 48 HI: 159 QRS: 61 QRSD: 112 T: -33 QT: 476 QTc: 427 Interpretive Statements SINUS BRADYCARDIA INCOMPLETE RIGHT BUNDLE BRANCH BLOCK DELAYED PRECORDIAL R/S TRANSITION INFERIOR INFARCT, PROBABLY RECENT ABNORMAL ECG Electronically Signed On 08-09-2019 7:10:31 CDT by Joseluis Barahona D.O.
--- NOTE | 2019-08-08 17:29 | PM.IMHP ---
H&P: HPI History of Present Illness Chief complaint: acute renal failure,hyperkalemia,elevated troponin Narrative: Jennifer Melendez is a 78 year old female who came to the emergency room today because of some abnormal labs. The was reporting that the patient was having some indigestion a couple days ago. The patient has been feeling weak for the past 5 days. She has been short of breath. Her primary care doctor ordered her to has some lab work done by [facility] yesterday. Her white count was noted to be 12.6. H&H is 9.9 and 32.0. Patient's D-dimer was noted to be 3.66. Potassium 5.7. Creatinine 3.0 BUN 59. GFR 15. Ferritin was noted to be 1750. Her troponin was 2.110 and 2.050. BNP was noted to be greater than 35,000. Patient was found to have a inferior leads STEMI. To the airport maintenance laborer. She had a totally occluded mid left circumflex artery and she received a drug-eluting stent. Selective right from oral angiogram and deployment of Angio-Seal hemostatic device. With moderate sedation. 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 She had 100% thrombotic occlusion of mid LCX and about 70% stenosis mid LAD 100% stenosis proximal RCA. See cath report. Patient was received into ICU after cardiac airport maintenance laborer. The patient was thrashing around and her O2 saturations decreased and her blood pressure increased. The patient was thrashing around the bed will not leave her oxygen on. I attempted to call her 2 times. I wanted to discuss code status but it was clearly noted the records that the has been wanted her to be a full code. Patient was sedated and intubated. A central line was placed as well. 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 Nephrology has also been consulted previously. Due to her acute renal failure. Patient has multiple organ dysfunction. The patient has been tested for covid 19 . We waiting results patient and she is in isolation. IV earlier. Patient had been on a nitro drip until she had sedation for intubation she was also given sodium bicarb earlier and and IV insulin for her high potassium. Date of service 08/08/2019 According to the the patient had some indigestion a couple days prior to today's events. She tried Tums and Pepcid. And symptoms relieved on its own.Patient had a previous stent placement prior to today. A code blue was called in the emergency room patient had a sudden onset of V-tach which was pulseless. She was defibrillated x1 and she was returned to normal sinus rhythm. That is when she went to the airport maintenance laborer. Review of Systems Review of Systems: ROS unobtainable: Yes unobtainable due to endotracheal tube and unobtainable due to mental status Constitutional: Constitutional: Reports as per HPI and Reports no additional constitutional complaints Eyes: Eyes: Reports as per HPI and Reports no additional eye complaints ENT: Reports system reviewed and no additional complaints, except as documented and Reports Normal hearing present Cardiovascular: Cardiovascular: Reports no additional cardiovascular complaints Respiratory: Respiratory: Reports no additional respiratory complaints and Reports no additional respiratory complaints Gastrointestinal: Gastrointestinal: Reports as per HPI and Reports no additional gastrointestinal complaints Musculoskeletal: Musculoskeletal: Reports no additional musculoskeletal complaints Integumentary/Breasts: Skin/Breast: Reports system reviewed and no additional complaints, except as docu and Reports as per HPI Neurologic: Reports system reviewed and no additional complaints, except as documented, Reports as per HPI and Reports Normal hearing present Psychiatric: Psychiatric: Reports no additional psychiatric complaints and Reports as per HPI Endocrine: Endocrine: Reports no additional endocrine complaints Hematologic/Lymphatic: Hematologic/Lymphatic: Reports no additional hematologic/lymphatic complaints Allergic/Immunologic: Allergic/Immunol
--- NOTE | 2019-08-08 18:43 | PM.CNNEP ---
Assessment and Plan Assessment and plan (1) Acute kidney injury superimposed on chronic kidney disease: Code(s): N17.9 - Acute kidney failure, unspecified; N18.9 - Chronic kidney disease, unspecified Status: Acute (2) Hyperkalemia: Code(s): E87.5 - Hyperkalemia Status: Acute (3) History of cardiac arrest: Code(s): Z86.74 - Personal history of sudden cardiac arrest Status: Acute (4) Acute coronary syndrome: Code(s): I24.9 - Acute ischemic heart disease, unspecified Status: Acute (5) Suspected COVID-19 virus infection: Code(s): R68.89 - Other general symptoms and signs Status: Acute Assessment and Plan: . Additional Plan Jennifer has what appears to be in acute insult on top of her baseline kidney disease. Unfortunately, I am not exactly sure what her baseline creatinine normally runs aside from the fact that records from 2018 showed she had a creatinine around 1.4 mg/dL as very possible that this is her baseline kidney function or per pat absent may have worsened somewhat in the last two years. It does seem clear though that she has had an acute insult if for no other reason than the fact that she had her acute cardiac event /cardiac arrest coupled with the necessity of a cardiac catheterization with subsequent contrast exposure, cardiogenic shock, and acute respiratory failure resulting in intubation and mechanical ventilation. This may further have been worsened by her outpatient use of an WES-inhibitor prior to admission as well. For further evaluation of her acute kidney injury/acute renal failure, I will check a renal ultrasound, urine electrolytes, urine senna fills, random urine protein creatinine ratio, and follow the trend of her repeat labs and urine output to assess where her kidney function is going in the context of the events of recurred over the course of this stay. Greater than 20 min was spent in detailed review of her electronic medical records as well as reviewing records from the [facility] during her hospitalization/intervention in 2018 as well as discussion with the ER physician earlier today. I will continue to follow patient with you while she remains hospitalized make further recommendations during her hospital course Thank you for allowing me to participate in the care of this patient. History of Present Illness Reason for Consult Consult date: 08/08/19 Reason for consult: acute renal failure (on chronic kidney disease) Chief Complaint Chief complaint: acute renal failure,hyperkalemia,elevated troponin History of Present Illness Narrative: All the information I have obtained is from review of the electronic medical record as well as discussion with the ER physician earlier today as the patient is unable to provide me if any history as she is currently intubated and on mechanical ventilation at the time my visit. The patient is a 78-year-old Caucaisan female With a past medical history as outlined below who presented to [facility] Emergency room at the behest of her primary care physician for abnormal labs. She recently saw her primary care physician for routine follow-up of her chronic medical issues and problems and had routine blood test performed at that time. Apparently, these labs came back abnormal with a elevated creatinine and potassium which were apparently new findings which prompted the patient's referral to the emergency room for further evaluation. Prior to these routine blood test, the patient states that she has been feeling somewhat poorly for about the last 5-7 days. Specifically, she has been having issues with heartburn symptoms unrelieved by [id number] medications. Other than that though, she had no reported issues or complaints with chest pain, dizziness, lightheadedness, orthopnea, edema, fevers, chills or any other systemic symptoms. She did relate some mild shortness of breath but did not seem to be a si
[2019-08-08] MEDS: PROPOFOL IV EMULSION 100 ML 1.4 MG IV CONT (19:00)
--- NOTE | 2019-08-08 19:07 | P.PCNBED_ITS ---
Procedures Central Line Placement Left Femoral: Central Line Date: 08/08/19 Discussed w/ the patient/family/POA,the placement of a central venous catheter, including its clinical necessity/indication & associated potential risks, benifits and alternatives.: Yes The patient/family/POA understand(s) and acknowledge(s) the need to proceed with central venous catheter insertion as an important element of the patient's clinical management.: Yes Performed Emergently - Given emergent patient condition, temporal constraints may have precluded informed consent.: Yes Time Out Performed: Yes Patient Position: supine Patient placed on monitor/pulse ox: Yes Provider Prep: mask, sterile gown, sterile gloves and Max. sterile barrier precautions Local anesthesia used: lidocaine 1% Ultrasound used for placement: Yes Central line lumen inserted: triple Belarusian: 7 Length (cm): 16 Depth of Insertion (cm): 15 Post procedure: sutured in place, good blood return, all ports aspirated, flushed, capped, tegaderm and hemostatic disc Intubation Intubation Date: 08/08/19 Intubation Time: 18:00 A pre-procedural Time-Out was completed immediately before starting the procedure and confirmed: Patient Identification, Site, Procedure, Patient Position and the Availability of Requisite Equipment: Yes Sedative: versed Mg given: 20 Laryngoscope: fiber optic video scope Assist device used: fiber optic device ET tube size: cuffed Tube secured depth (cm): 24 Tube secured location: lips Tube placement confirmation: visualized tube passing through cords Patient tolerated procedure: well Additional comments: Patient was also given 4 mg of Versed. Prior to rapid sequence intubation patient had been given 1 mg of Versed. Since patient was not sedated with a Versed she was given etomidate. Patient tolerated well.
[2019-08-08 19:40] LABS: Alveolar/Arterial O2 Gradient 215.5 mmHg; Base Excess ABG -4.3 mEq/l (+/-2.0); Fractional Inspired Oxygen 100 %; HCO3 ABG 18.1 mEq/l (22.0-26.0); Oxygen Content ABG 15.1 %vol (16.0-22.0); Oxygen Saturation ABG 99.9 % (95.0-100.0); Oxyhemoglobin 98.1 % THb (90.0-100.0); PCO2 ABG 24.8 mmHg (35.0-45.0); PO2 ABG 472.7 mmHg (80.0-100.0); PO2 FiO2 Ratio Arterial Blood 4.73 %
[2019-08-08 19:41] LABS: Device VENTILATOR; Modified Allen's Test Unable to perform; Site Drawn LEFT RADIAL
[2019-08-08 19:42] LABS: Arterial Blood Gas PEEP 8 cmH2O; Arterial Blood Gas Tidal Volume 350 ml; Arterial Blood Gas Vent Mode CMV; Arterial Blood Gas Ventilator rate 22 /MIN
[2019-08-08] MEDS: METOPROLOL TARTRATE 25 MG TABLET PO (20:12)
[2019-08-08] MEDS: TICAGRELOR 90 MG TABLET PO (20:14)
[2019-08-08 20:18] LABS: Blood Urea Nitrogen 57 mg/dL (7-17); Calcium 9.1 mg/dL (8.4-10.2); Carbon Dioxide 21 mmol/L (22-30); Chloride 102 mmol/L (98-107); Estimated Glomerular Filt Rate 14; Glucose 120 mg/dL (65-105); Potassium 5.1 mmol/L (3.4-5.0); Sodium 137 mmol/L (137-145)
--- NOTE | 2019-08-08 21:22 | ADMGEN ---
This patient, Jennifer Melendez, was admitted to Intensive Care Unit-3 at 1540. Patient/family oriented to hospital policies and general routines including ID bracelet, bed and alarms, visiting hours, pain management, procedures, bathroom and other care routines, personal items, smoking policy, room service/diet, and visiting hours. Valuables list has been completed. Information on how to activate the Rapid Response Team has been discussed. Patient/Family are encouraged to report perceived risks to care and to ask questions if they do not understand what they are told or what they should do.
[2019-08-08 21:49] LABS: Hepatitis B Surface Antigen Negative (Negative)
[2019-08-08 21:54] LABS: HAV RESULT Negative (Negative); Hepatitis B Core IgM Result Negative (Negative)
[2019-08-08] MEDS: SODIUM BICARBONATE 8.4% 150 MEQ in WATER, STERILE FOR INJECTION 950 ML 75 MEQ IV CONT (21:56)
[2019-08-08] MEDS: CENTRAL LINE FLUSH 10 ML IV PUSH (21:57)
[2019-08-08] MEDS: SODIUM POLYSTYRENE SULFONONATE 15 GM/60 ML BTL 30 GM PO (22:03)
[2019-08-08 22:06] LABS: Hepatitis C Virus Antibody Negative (Negative)
[2019-08-09] VITALS (28 sets, daily range): BP systolic 123–161; BP diastolic 56–85; PULSE 50–61; RESP 14–20; TEMP 35.5–36.8; O2SAT 100; BMI 20.9; BMI 24.1
[2019-08-09] MEDS: SODIUM CHLORIDE 0.9% IV 1,000 ML 100 ML IV CONT (02:09)
[2019-08-09 03:41] LABS: Alveolar/Arterial O2 Gradient 188.3 mmHg; Base Excess ABG 3.6 mEq/l (+/-2.0); Fractional Inspired Oxygen 50 %; HCO3 ABG 23.7 mEq/l (22.0-26.0); Oxygen Content ABG 12.7 %vol (16.0-22.0); Oxygen Saturation ABG 99.3 % (95.0-100.0); Oxyhemoglobin 96.8 % THb (90.0-100.0); PCO2 ABG 21.9 mmHg (35.0-45.0); PO2 ABG 143.6 mmHg (80.0-100.0); PO2 FiO2 Ratio Arterial Blood 2.87 %; Total Hemoglobin 9.1 g/dL (12.0-18.0); pH ABG 7.652 (7.350-7.450)
[2019-08-09 03:42] LABS: Arterial Blood Gas Vent Mode CMV; Arterial Blood Gas Ventilator rate 20 /MIN; Device VENTILATOR; Modified Allen's Test Unable to perform; Site Drawn LEFT RADIAL
[2019-08-09 03:43] LABS: Arterial Blood Gas PEEP 8 cmH2O; Arterial Blood Gas Tidal Volume 350 ml
[2019-08-09 04:51] LABS: Basophils Percent Auto 0.1 % (0.2-1.2); Hematocrit 25.5 % (37.0-47.0); Hemoglobin 8.2 g/dL (12.0-15.0); Immature Granulocyte Absolute 0.16 K/mm3 (0.00-0.031); Immature Granulocyte Percent A 0.9 % (0-0.5); Lymphocytes Absolute Auto 1.59 K/mm3 (0.9-3.2); Lymphocytes Percent Auto 9.4 % (18.3-44.2); Mean Corpuscular HGB Conc 32.2 g/dl (32-36); Mean Corpuscular Hemoglobin 27.2 pg (26-34); Mean Corpuscular Volume 84.4 fl (80-100); Mean Platelet Volume 9.7 fl (7.4-10.4); Monocytes Absolute Auto 0.8 K/mm3 (0.1-0.6); Monocytes Percent Auto 4.7 % (2.6-8.5); Neutrophils Absolute Auto 14.4 K/mm3 (1.3-6.7); Neutrophils Percent Auto 84.9 % (45.5-73.1); Nucleated Red Blood Cells Absolute Auto 0.1 K/mm3 (0.0-0.012); Nucleated Red Blood Cells Perc 0.6 % (0.0-0.2); Platelet Count Result 272 k/mm3 (150-375); Red Blood Count 3.02 M/mm3 (4.2-5.4); Red Cell Distribution Width 14.6 % (11.5-14.5); White Blood Count 16.9 K/mm3 (4.5-10.0)
[2019-08-09 04:53] LABS: Potassium 3.8 mmol/L (3.4-5.0)
[2019-08-09 05:03] LABS: Alanine Aminotransferase 500 U/L (4-35); Albumin Level 2.7 g/dL (3.5-5.1); Alkaline Phosphatase 96 U/L (38-126); Bilirubin,Total 1.3 mg/dL (0.2-1.3); Blood Urea Nitrogen 57 mg/dL (7-17); CRP 4.8 mg/dL (<1.0); Calcium 8.4 mg/dL (8.4-10.2); Carbon Dioxide 26 mmol/L (22-30); Chloride 101 mmol/L (98-107); Estimated Glomerular Filt Rate 15; Glucose 96 mg/dL (65-105); Magnesium 1.9 mg/dL (1.6-2.3); Sodium 138 mmol/L (137-145)
[2019-08-09 05:52] LABS: Aspartate Amino Transferase 843 U/L (14-36); Lactate Dehydrogenase 4316 U/L (313-618)
[2019-08-09] MEDS: CENTRAL LINE FLUSH 10 ML IV PUSH ×4 (06:00→17:23)
[2019-08-09] MEDS: FAMOTIDINE 20 MG/2 ML VIAL IV PUSH (08:50)
[2019-08-09] MEDS: ASPIRIN 81 MG ENTERIC TABLET PO (08:50)
[2019-08-09] MEDS: TICAGRELOR 90 MG TABLET PO ×2 (08:50→22:00)
[2019-08-09] MEDS: METOPROLOL TARTRATE 25 MG TABLET PO (08:51)
[2019-08-09 09:39] LABS: Creatinine Urine 79.5 mg/dL; Total Protein Urine Random 167 mg/dL
[2019-08-09 09:42] LABS: Sodium Urine Random 23 meq/L
--- NOTE | 2019-08-09 10:36 | PM.PNCARD ---
Progress Note: A&P Assessment and Plan (1) Acute coronary syndrome: Code(s): I24.9 - Acute ischemic heart disease, unspecified Status: Acute Assessment and Plan: it appears to be a delayed presentation ST-elevation inferior myocardial infarction. Likely started 4-5 days ago. Continue aspirin and Brilinta. Continue metoprolol. Holding statin secondary to elevated LFTs. Groin is stable. No hematoma ecchymosis or bruit. She will eventually need further workup regarding her significant LAD disease/occluded RCA and mitral regurgitation. (2) History of cardiac arrest: Code(s): Z86.74 - Personal history of sudden cardiac arrest Status: Acute Assessment and Plan: ACS versus hyperkalemia versus both (3) Hyperkalemia: Code(s): E87.5 - Hyperkalemia Status: Acute Assessment and Plan: Resolved (4) Acute kidney injury superimposed on chronic kidney disease: Code(s): N17.9 - Acute kidney failure, unspecified; N18.9 - Chronic kidney disease, unspecified Status: Acute Assessment and Plan: unknown baseline creatinine but she does see Dr. 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 Followed by Nephrology (5) Hyperlipidemia: Code(s): E78.5 - Hyperlipidemia, unspecified Status: Acute Assessment and Plan: Holding statin for now secondary to her elevated LFTs (6) Hypertension: Code(s): I10 - Essential (primary) hypertension Status: Acute Assessment and Plan: Increase metoprolol to 50 mg p.o. b.i.d. (7) CAD (coronary artery disease): Code(s): I25.10 - Atherosclerotic heart disease of [place] coronary artery without angina pectoris Status: Acute Assessment and Plan: known history of RCA stent remotely Additional Plan Further workup and recommendations depending on results of her angiogram. Subjective Date/time seen: 08/09/19 10:36 Interval history: Chief complaint: Abnormal labs and Acute coronary syndrome Date of service 08/09/19: PCI to the OM branch yesterday. Occluded RCA. Significant LAD disease also in addition to significant mitral regurgitation. Decompensated last night requiring mechanical ventilation. Responsive to painful stimuli. No dysrhythmia overnight Review of Systems Review of Systems: ROS unobtainable: Yes unobtainable due to endotracheal tube Constitutional: Constitutional: Denies headache(s) and Reports weakness ENT: Denies headache(s), Denies lip swelling, Denies epistaxis and Denies neck pain Cardiovascular: Cardiovascular: Reports leg edema Respiratory: Respiratory: Reports cough Gastrointestinal: Gastrointestinal: Denies hematemesis Genitourinary: Genitourinary: Denies hematuria Integumentary/Breasts: Skin/Breast: Denies wounds Neurologic: Denies Normal hearing present and Reports weakness Endocrine: Endocrine: Denies fatigue and Denies flushing Hematologic/Lymphatic: Hematologic/Lymphatic: Denies easy bleeding Allergic/Immunologic: Allergic/Immunologic: Denies lip swelling Exam Const: General: comfortable HENMT: General nose exam: Normal nares present and no epistaxis Eyes: Sclera: sclerae normal Neck: Neck: supple and no JVD Chest: Other: no chest wall pain to palpation Resp: Auscultation: crackles Cardio: Rate: regular rate Rhythm: regular rhythm GI: Inspection: non-distended Skin: General skin exam: normal color Neuro: Cranial nerves: No Normal hearing present Other: Response to painful stimuli Extrem: General: edema Psych: Other: Sedated Objective Data Vital Signs Vital Signs: Vital Signs - 24 hr 08/08/19 10:38 08/08/19 11:26 08/08/19 12:39 Temperature 36.1 C L Pulse Rate 55 L 77 Respiratory Rate 22 H 24 H Blood Pressure 144/86 H Pulse Oximetry 100 99 08/08/19 12:43 08/08/19 12:45 08/08/19 12:55 Temperature Pulse Rate 83 69 Respiratory Rate 32 H 31 H Blood Pressure 192/96 H 154/128 H
--- NOTE | 2019-08-09 10:50 | PCDIET ---
MD ordered initiation of Nepro tube feedings. Recommend goal rate of 30mL/hr x 22 hours/day for total of 1188kcal (1301kcal with Propofol at current rate), 53g protein and 479mL free water. Suggest 30mL water flush every 4 hours at this time.
--- NOTE | 2019-08-09 11:14 | WPDINTPN ---
Progress Note: A&P Assessment and Plan (1) Acute respiratory failure: Code(s): J96.00 - Acute respiratory failure, unspecified whether with hypoxia or hypercapnia Status: Acute Assessment and Plan: patient developed hypoxia and oxygen requirements were increasing, patient was intubated on 08/07/2020 any and placed to CMV mode of ventilation - chest x-ray and ABGs reviewed, currently on 40% FiO2 and peep of 8 - likely pneumonia and/or pulmonary vascular congestion - sedated with propofol infusion (2) Acute coronary syndrome: Code(s): I24.9 - Acute ischemic heart disease, unspecified Status: Acute Assessment and Plan: patient status post PTCA/PCI with ÁNGELA x1 to mid circumflex - patient appeared to be a delayed presentation of STEMI - echo has been ordered - continue aspirin, Brilinta and metoprolol - holding statin secondary to elevated LFTs (3) CAD (coronary artery disease): Code(s): I25.10 - Atherosclerotic heart disease of [place] coronary artery without angina pectoris Status: Acute Assessment and Plan: history of coronary artery disease status post PCI in distant past. details unknown (4) Acute kidney injury superimposed on chronic kidney disease: Code(s): N17.9 - Acute kidney failure, unspecified; N18.9 - Chronic kidney disease, unspecified Status: Acute Assessment and Plan: KINGA precipitated over CKD likely multifactorial from cardiogenic and patient was on WES-inhibitor - appreciate Nephrology evaluation recommendation - renal ultrasound showed mild atrophy of left kidney, no hydronephrosis, small amount of ascites - monitor electrolytes urine output and creatinine - cautious slow IV fluids (5) Hyperkalemia: Code(s): E87.5 - Hyperkalemia Status: Acute Assessment and Plan: RESOLVED: had to acute kidney injury, STEMI. - Patient was treated for hyperkalemia in the ED, repeat potassium this morning is within normal limits (6) Hyperlipidemia: Code(s): E78.5 - Hyperlipidemia, unspecified Status: Acute Assessment and Plan: hold statin as patient's LFTs were elevated (7) Hypertension: Code(s): I10 - Essential (primary) hypertension Status: Acute Assessment and Plan: patient is off nitroglycerin infusion, blood pressures are stable (8) Suspected COVID-19 virus infection: Code(s): R68.89 - Other general symptoms and signs Status: Acute Assessment and Plan: COVID-19 suspected. SARS-CoV-2 PCR sent and results pending Patient is in Airborne, Droplet and Contact Isolation (9) Elevated transaminase level: Code(s): R74.0 - Nonspecific elevation of levels of transaminase and lactic acid dehydrogenase [LDH] Status: Acute Assessment and Plan: likely from hypoperfusion due to STEMI - continue to monitor LFTs - right upper quadrant ultrasound showed pancreas to be normal, liver is normal without focal lesion, no liver service nodularity. There is normal flow in the main portal vein. The gallbladder is absent. The common duct is normal and measures 8 mm. there is a small volume of perihepatic ascites. Additional Plan Will discuss with Code Status - Full Code Total Critical Care Time - 35 minutes Due to a high probability of clinically significant, life threatening deterioration, the patient required my highest level of preparedness to intervene emergently and I personally spent this critical care time directly and personally managing the patient. This critical care time included obtaining a history; examining the patient; pulse oximetry; ordering and review of studies; arranging urgent treatment with development of a management plan; evaluation of patient's response to treatment; frequent reassessment; and discussions with other providers. It was exclusive of separately billable procedures and treating other patients and teaching
[2019-08-09] MEDS: SODIUM CHLORIDE 0.9% IV 1,000 ML 75 ML IV CONT (11:49)
[2019-08-09] MEDS: PROPOFOL IV EMULSION 100 ML 4.3 MG IV CONT (14:13)
--- NOTE | 2019-08-09 16:38 | P.PNNP_ITS ---
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 - pre-renal factors (low urine sodium) * not entirely sure what baseline creatinine is (was 1.4 in 2018) - will try to obtain any old records * follow trend of repeat labs and UOP (2) Hyperkalemia: Code(s): E87.5 - Hyperkalemia Status: Acute Assessment and Plan: * presumably due to #1 and WES-I use * s/p medical management * follow trend (3) History of cardiac arrest: Code(s): Z86.74 - Personal history of sudden cardiac arrest Status: Acute Assessment and Plan: * due to STEMI/ACS (see #5) * Cardiology following (4) Acute respiratory failure: Qualifiers: Respiratory failure complication: hypoxia Qualified Code(s): J96.01 - Acute respiratory failure with hypoxia Code(s): J96.00 - Acute respiratory failure, unspecified whether with hypoxia or hypercapnia Status: Acute Assessment and Plan: * on mechanical ventilation * due to pulmonary edema +/- pneumonia * follow cultures * on antibiotics (5) CAD (coronary artery disease): Qualifiers: Coronary Disease-Associated Artery/Lesion type: [place] artery [place] vs. transplanted heart: [place] heart Associated angina: with unstable angina Qualified Code(s): I25.110 - Atherosclerotic heart disease of [place] coronary artery with unstable angina pectoris Code(s): I25.10 - Atherosclerotic heart disease of [place] coronary artery without angina pectoris Status: Acute Assessment and Plan: * s/p cardiac catheterization with PTCA/PCI with ÁNGELA x 1 to mid circumflex * Cardiology following * maximizing medical therapy (6) Suspected COVID-19 virus infection: Code(s): R68.89 - Other general symptoms and signs Status: Acute Assessment and Plan: * testing in progress Will continue to follow. Subjective Date/time seen: 08/09/19 16:38 Remains intubated and sedated at the time of my visit; hemodynamically stable but with low urine output -- however, creatinine appears relatively stable; no new issues overnight or earlier this AM. Exam Narrative: Exam Narrative: General: Elderly female - intubated/sedated Heart: normal S1 and S2; no rub Lungs: clear to auscultation Abdomen: soft, nontender, nondistended, positive bowel sounds Extremities: no cyanosis or clubbing; no edema Skin: warm and dry Objective Data Vital Signs Vital Signs: Vital Signs Temp Pulse Resp BP Pulse Ox 08/09/19 16:00 35.7 C L 50 L 14 140/63 100 08/09/19 14:10 53 L 100 08/09/19 14:00 35.8 C L 51 L 14 133/80 100 08/09/19 12:00 36.1 C L 54 L 14 156/70 H 100 08/09/19 10:40 59 L 100 08/09/19 10:00 36.3 C L 56 L 14 156/84 H 100 08/09/19 08:20 56 L 100 08/09/19 08:00 36.6 C 56 L 16 161/85 H 100 08/09/19 06:00 36.8 C 61 16 147/79 H 100 08/09/19 05:20 56 L 100 08/09/19 05:00 36.4 C L 08/09/19 04:30 36.1 C L 08/09/19 04:00 35.8 C L 56 L 20 130/67 100
--- NOTE | 2019-08-09 16:38 | PM.PNNEP ---
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 - pre-renal factors (low urine sodium) not entirely sure what baseline creatinine is (was 1.4 in 2018) - will try to obtain any old records follow trend of repeat labs and UOP (2) Hyperkalemia: Code(s): E87.5 - Hyperkalemia Status: Acute Assessment and Plan: presumably due to #1 and WES-I use s/p medical management follow trend (3) History of cardiac arrest: Code(s): Z86.74 - Personal history of sudden cardiac arrest Status: Acute Assessment and Plan: due to STEMI/ACS (see #5) Cardiology following (4) Acute respiratory failure: Qualifiers: Respiratory failure complication: hypoxia Qualified Code(s): J96.01 - Acute respiratory failure with hypoxia Code(s): J96.00 - Acute respiratory failure, unspecified whether with hypoxia or hypercapnia Status: Acute Assessment and Plan: on mechanical ventilation due to pulmonary edema +/- pneumonia follow cultures on antibiotics (5) CAD (coronary artery disease): Qualifiers: Coronary Disease-Associated Artery/Lesion type: [place] artery [place] vs. transplanted heart: [place] heart Associated angina: with unstable angina Qualified Code(s): I25.110 - Atherosclerotic heart disease of [place] coronary artery with unstable angina pectoris Code(s): I25.10 - Atherosclerotic heart disease of [place] coronary artery without angina pectoris Status: Acute Assessment and Plan: s/p cardiac catheterization with PTCA/PCI with ÁNGELA x 1 to mid circumflex Cardiology following maximizing medical therapy (6) Suspected COVID-19 virus infection: Code(s): R68.89 - Other general symptoms and signs Status: Acute Assessment and Plan: testing in progress Will continue to follow. Subjective Date/time seen: 08/09/19 16:38 Remains intubated and sedated at the time of my visit; hemodynamically stable but with low urine output -- however, creatinine appears relatively stable; no new issues overnight or earlier this AM. Exam Narrative: Exam Narrative: General: Elderly female - intubated/sedated Heart: normal S1 and S2; no rub Lungs: clear to auscultation Abdomen: soft, nontender, nondistended, positive bowel sounds Extremities: no cyanosis or clubbing; no edema Skin: warm and dry Objective Data Vital Signs Vital Signs: Vital Signs Temp Pulse Resp BP Pulse Ox 08/09/19 16:00 35.7 C L 50 L 14 140/63 100 08/09/19 14:10 53 L 100 08/09/19 14:00 35.8 C L 51 L 14 133/80 100 08/09/19 12:00 36.1 C L 54 L 14 156/70 H 100 08/09/19 10:40 59 L 100 08/09/19 10:00 36.3 C L 56 L 14 156/84 H 100 08/09/19 08:20 56 L 100 08/09/19 08:00 36.6 C 56 L 16 161/85 H 100 08/09/19 06:00 36.8 C 61 16 147/79 H 100 08/09/19 05:20 56 L 100 08/09/19 05:00 36.4 C L 08/09/19 04:30 36.1 C L 08/09/19 04:00 35.8 C L 56 L 20 130/67 100 08/09/19 03:00 35.5 C L 08/09/19 02:30 35.5 C L 08/09/19 02:20 53 L 100 08/09/19 02:00 35.7 C L 51 L 20 130/66 100 08/09/19 01:00 35.9 C L 08/09/19 00:30 36.1 C L 08/09/19 00:00 36.2 C L 53 L 20 130/70 100 08/08/19 23:30 36.2 C L 08/08/19 23:06 55 L 100 08/08/19 23:00 36.1 C L 08/08/19 22:30 35.7 C L 08/08/19 22:00 35.4 C L 53 L 22 H 135/78 100 08/08/19 21:30 35 C L 08/08/19 21:00 34.8 C L 08/08/19 20:45 34.7 C L 08/08/19 20:30 34.6 C L 08/08/19 20:12 53 L 08/08/19 20:05 49 L 100 08/08/19 20:
--- NOTE | 2019-08-09 16:45 | PM.IMPN ---
Progress Note: A&P Assessment and Plan (1) Acute respiratory failure: Qualifiers: Respiratory failure complication: hypoxia Qualified Code(s): J96.01 - Acute respiratory failure with hypoxia Code(s): J96.00 - Acute respiratory failure, unspecified whether with hypoxia or hypercapnia Status: Acute Assessment and Plan: Patient decompensated last evening requiring intubation. [place] related to PNA and pulmonary edema. Being tested for COVID as well. Stable on [facility] ventilation. ABG showing 7.65/22/143. Vent management per senior sustainability consultant. (2) Ventricular tachycardia: Code(s): I47.2 - Ventricular tachycardia Status: Acute Assessment and Plan: Pateint developed VTach while in the ER requiring shock x 1. [place] related to the STEMI. No evidence of recurrence. Continue tele. Appreciate Cardiology input. (3) Acute coronary syndrome: Code(s): I24.9 - Acute ischemic heart disease, unspecified Status: Acute Assessment and Plan: Patient developed symptoms a few days prior to admission. She presented with elevated troponins to 2.5 and EKG changes concerning for ST elevation [place]. Patient developed ventricular tachycardia requiring shock x1. She was taken to the pathology laboratory aides teacher where she was found to have acute thrombosis of the left circumflex that was stented successfully. She was also noted to have stenosis of the LAD that will require intervention at some point. The RCA was 100% stenosed which is probably chronic. Patient moved to the ICU. She was noted to have markedly elevated blood pressures. She developed respiratory distress requiring intubation and central line placement. Currently patient is stable on mechanical ventilation. She is on aspirin and Brilinta. Lopressor started as well. Appreciate Cardiology input. (4) Suspected COVID-19 virus infection: Code(s): R68.89 - Other general symptoms and signs Status: Acute Assessment and Plan: Patient had COVID testing from the emergency room. D-dimer was 3.6, LDH 4300, CRP 4.8, Feritin 1750. COVID results pending. Continue appropriate isolation. Continue Rocephin and azithromycin. (5) Elevated transaminase level: Code(s): R74.0 - Nonspecific elevation of levels of transaminase and lactic acid dehydrogenase [LDH] Status: Acute Assessment and Plan: AST and ALT elevated on admission and worse today. Most likely related to above. Patient not on statin therapy at home. Statin therapy held until liver tests improved. Bilirubin and alk-phos levels are normal. Small amount of ascites noted but no evidence of cirrhosis by ultrasound. Continue to monitor. (6) Hyperkalemia: Code(s): E87.5 - Hyperkalemia Status: Acute Assessment and Plan: 5.7 on admission. She was treated appropriately in the emergency room. This could be the etiology of her episode of V-tach. Potassium normal today. Continue to follow. (7) Acute kidney injury superimposed on chronic kidney disease: Code(s): N17.9 - Acute kidney failure, unspecified; N18.9 - Chronic kidney disease, unspecified Status: Acute Assessment and Plan: Creatinine is 3.0 on admission. She does see a retail operations specialist but unclear her baseline creatinine levels. She did receive IV contrast with a heart catheterization yesterday. Creatinine unchanged today but will need to continue to monitor closely. Renal ultrasound showing mild atrophy of the left kidney. Nephrology is following along. Appreciate their input. (8) Hyperlipidemia: Code(s): E78.5 - Hyperlipidemia, unspecified Status: Acute Assessment and Plan: As above. (9) Hypertension: Code(s): I10 - Essential (primary) hypertension Status: Acute Assessment and Plan: Blood pressure reviewed on 08/09/2019. Blood pressure was elevated after the heart catheterization but did improve with the nitroglyceri
[2019-08-09] MEDS: METOPROLOL TARTRATE 50 MG TAB PO (21:59)
[2019-08-10] VITALS (21 sets, daily range): BP systolic 116–174; BP diastolic 61–101; PULSE 49–81; RESP 14–62; TEMP 36.2–37.2; O2SAT 100
[2019-08-10] MEDS: SODIUM CHLORIDE 0.9% IV 1,000 ML 75 ML IV CONT (02:00)
[2019-08-10 04:25] LABS: Alveolar/Arterial O2 Gradient 104.6 mmHg; Base Excess ABG 2.6 mEq/l (+/-2.0); Carboxyhemoglobin 0.2 % THb (0-2.0); Fractional Inspired Oxygen 40 %; HCO3 ABG 24.7 mEq/l (22.0-26.0); Methemoglobin ABG 0.5 %THb (0-1.5); Oxygen Saturation ABG 99.2 % (95.0-100.0); Oxyhemoglobin 97.2 % THb (90.0-100.0); PCO2 ABG 29.2 mmHg (35.0-45.0); PO2 FiO2 Ratio Arterial Blood 3.67 %; Reduced Hemoglobin 2.1 %THb (0-5.0)
[2019-08-10 04:27] LABS: Arterial Blood Gas PEEP 8 cmH2O; Arterial Blood Gas Vent Mode CMV; Arterial Blood Gas Ventilator rate 14 /MIN; Device VENTILATOR; Modified Allen's Test Pass; Site Drawn LEFT RADIAL; pH ABG 7.545 (7.350-7.450)
[2019-08-10 04:28] LABS: Arterial Blood Gas Tidal Volume 350 ml
[2019-08-10 05:14] LABS: Hematocrit 28.3 % (37.0-47.0); Hemoglobin 8.8 g/dL (12.0-15.0); Mean Corpuscular HGB Conc 31.1 g/dl (32-36); Mean Corpuscular Hemoglobin 27.3 pg (26-34); Mean Corpuscular Volume 87.9 fl (80-100); Mean Platelet Volume 9.4 fl (7.4-10.4); Platelet Count Result 263 k/mm3 (150-375); Red Blood Count 3.22 M/mm3 (4.2-5.4); White Blood Count 14.8 K/mm3 (4.5-10.0)
[2019-08-10 05:26] LABS: Alanine Aminotransferase 328 U/L (4-35); Albumin Level 2.5 g/dL (3.5-5.1); Alkaline Phosphatase 103 U/L (38-126); Aspartate Amino Transferase 232 U/L (14-36); Bilirubin,Total 0.6 mg/dL (0.2-1.3); Blood Urea Nitrogen 54 mg/dL (7-17); Calcium 8.2 mg/dL (8.4-10.2); Carbon Dioxide 29 mmol/L (22-30); Chloride 104 mmol/L (98-107); Estimated Glomerular Filt Rate 17; Glucose 134 mg/dL (65-105); Magnesium 1.9 mg/dL (1.6-2.3); Phosphorus 4.1 mg/dL (2.5-4.5); Potassium 3.2 mmol/L (3.4-5.0); Sodium 138 mmol/L (137-145)
[2019-08-10] MEDS: CENTRAL LINE FLUSH 10 ML IV PUSH ×4 (06:39→22:10)
[2019-08-10] MEDS: METOPROLOL TARTRATE 50 MG TAB PO ×2 (08:01→20:15)
[2019-08-10] MEDS: TICAGRELOR 90 MG TABLET PO ×2 (08:02→20:15)
[2019-08-10 08:04] LABS: SARS-CoV-2 RNA PCR Negative
--- NOTE | 2019-08-10 08:22 | PM.IMPN ---
Progress Note: A&P Assessment and Plan (1) Acute respiratory failure: Qualifiers: Respiratory failure complication: hypoxia Qualified Code(s): J96.01 - Acute respiratory failure with hypoxia Code(s): J96.00 - Acute respiratory failure, unspecified whether with hypoxia or hypercapnia Status: Acute Assessment and Plan: Patient decompensated requiring intubation on 08/08/19. COVID negative. [place] related to pulmonary edema +/- PNA. [facility]. ABG showing 7.54//147. CXR showing bilateral effusions and bibasilar airspace disease. Consider stopping IVF and give trial of Lasix. Vent management per distance learning unit leader. (2) Ventricular tachycardia: Code(s): I47.2 - Ventricular tachycardia Status: Acute Assessment and Plan: Pateint developed VTach while in the ER requiring shock x 1. [place] related to the STEMI. No evidence of recurrence. Continue tele. Appreciate Cardiology input. (3) Acute coronary syndrome: Code(s): I24.9 - Acute ischemic heart disease, unspecified Status: Acute Assessment and Plan: Patient developed symptoms a few days prior to admission. She presented with elevated troponins to 2.5 and EKG changes concerning for ST elevation [place]. Patient developed ventricular tachycardia requiring shock x1. She was taken to the senior cytogenetics laboratory director where she was found to have acute thrombosis of the left circumflex that was stented successfully. She was also noted to have stenosis of the LAD that will require intervention at some point. The RCA was 100% stenosed which is probably chronic. Patient moved to the ICU. She was noted to have markedly elevated blood pressures. She developed respiratory distress requiring intubation and central line placement on 08/08/19. Currently patient is stable on mechanical ventilation. She is on Lopressor, aspirin and Brilinta. Lipitor on holdl. Appreciate Cardiology input. (4) STEMI (ST elevation myocardial infarction): Qualifiers: Involved coronary artery: left circumflex coronary artery Qualified Code(s): I21.21 - ST elevation (STEMI) myocardial infarction involving left circumflex coronary artery Code(s): I21.3 - ST elevation (STEMI) myocardial infarction of unspecified site Status: Acute Assessment and Plan: As above. (5) Pneumonia: Qualifiers: Pneumonia type: due to unspecified organism Laterality: bilateral Lung location: lower lobe of lung Qualified Code(s): J18.9 - Pneumonia, unspecified organism Code(s): J18.9 - Pneumonia, unspecified organism Status: Acute Assessment and Plan: Possible PNA on presentation. CXR today showing bilateral pleural effusion and bibasilar airspace disease. Currently on Rocephin and Azithromycin. (6) Suspected COVID-19 virus infection: Code(s): R68.89 - Other general symptoms and signs Status: Acute Assessment and Plan: COVID test has returned negative. D-dimer was 3.6 on admission related to above. Will check lower extremity venous dopplers. Add Lovenox prophylaxis. Monitor HH. (7) Elevated transaminase level: Code(s): R74.0 - Nonspecific elevation of levels of transaminase and lactic acid dehydrogenase [LDH] Status: Acute Assessment and Plan: AST and ALT elevated on admission and worse yesterday but better today. Most likely related to hepatic congestion related to above. Patient not on statin therapy at home. Statin therapy held until liver tests improved. Bilirubin and alk-phos levels remain normal. Small amount of ascites noted but no evidence of cirrhosis by ultrasound. Continue to monitor. (8) Acute kidney injury superimposed on chronic kidney disease: Code(s): N17.9 - Acute kidney failure, unspecified; N18.9 - Chronic kidney disease, unspecified Status: Acute Assessment and Plan: Creatinine is 3.0 on admission. She does see
[2019-08-10] MEDS: FAMOTIDINE 20 MG/2 ML VIAL IV PUSH (08:23)
[2019-08-10] MEDS: ASPIRIN 81 MG ENTERIC TABLET PO (08:23)
--- NOTE | 2019-08-10 10:07 | PM.PNCARD ---
Progress Note: A&P Additional Plan 78-year-old white female with: Longstanding coronary artery disease, remote history of RCA stenting presenting with subacute occlusion of the mid circumflex/OM branch at the time of presentation. Patient was found to have SEED EXPERT of the previously stented proximal RCA at this time as well. Given this anatomy left ventricular systolic function understandably is significantly reduced by echo and she also understandably has significant MR undoubtedly due to posterior medial papillary muscle dysfunction. Prognosis is very limited given the fact that she rapidly became ventilator dependent. She does have chronic kidney disease and was on WES-inhibitor therapy at home in the form of quinapril. I would recommend resuming WES-inhibitor therapy given her CHF, following this ID and ventilator dependency. Discussed with the critical care staff who would prefer waiting another day or 2 to resume WES-inhibitor therapy and watch kidney function. Beta-reba will be continued she needs to be diuresed with furosemide today these will be ordered and aggressive supportive care will be continued. Dual anti-platelet therapy is appropriately ordered Prognosis guarded Garrick Figueroa MD [facility] Subjective Date/time seen: Date of service: 08/10/19 10:07 Interval history: Chief complaint: Abnormal labs and Acute coronary syndrome Date of service 08/09/19: PCI to the OM branch yesterday. Occluded RCA. Significant LAD disease also in addition to significant mitral regurgitation. Decompensated during the evening following the PCI requiring mechanical ventilation. Responsive to painful stimuli. Still on full ventilator support and sedated. Exam Const: Other: Chronically ill-appearing thin elderly lady sedated on on mechanical ventilator support HENMT: Mouth: Yes dry mucous membranes Eyes: Sclera: sclerae normal Pupils: Equal, round and reactive pupils present Neck: Neck: supple and no JVD Thyroid: thyroid normal Resp: Other: Patient on mechanical ventilator. Breath sounds a demonstrates some coarse central rhonchi. Cardio: Rate: regular rate Rhythm: regular rhythm Other: Apical systolic murmur noted. No obvious gallop no rub GI: Auscultation: normal bowel sounds Urinary Catheter: Urinary Catheter: patent and draining Skin: General skin exam: normal color Neuro: Other: Patient sedated neurological exam not possible Extrem: General: normal to inspection Other: Puncture site in the right groin looks fine normal pulse, no hematoma Objective Data Vital Signs Vital Signs: Vital Signs - 24 hr 08/09/19 10:40 08/09/19 12:00 08/09/19 14:00 Temperature 36.1 C L 35.8 C L Pulse Rate 59 L 54 L 51 L Respiratory Rate 14 14 Blood Pressure 156/70 H 133/80 Pulse Oximetry 100 100 100 08/09/19 14:10 08/09/19 16:00 08/09/19 17:15 Temperature 35.7 C L Pulse Rate 53 L 50 L 53 L Respiratory Rate 14 Blood Pressure 140/63 Pulse Oximetry 100 100 100 08/09/19 18:00 08/09/19 20:00 08/09/19 21:08 Temperature 35.9 C L 36.1 C L Pulse Rate 51 L 53 L 59 L Respiratory Rate 16 16 Blood Pressure 148/72 H 156/73 H Pulse Oximetry 100 100 100 08/09/19 21:59 08/09/19 22:00 08/09/19 23:20 Temperature 36.3 C L Pulse Rate 60 52 L 54 L Respiratory Rate 16 Blood Pressure 123/56 L Pulse Oximetry 100 100 08/10/19 00:00 08/10/19 02:00 08/10/19 02:25 Temperature 36.4 C L 36.3 C L Pulse Rate 54 L 50 L 54 L Respiratory Rate 16 16 Blood Pressure 116/61 133/74 Pulse Oximetry 100 100 100 08/10/19 04:00 08/10/19 04:28 08/10/19 06:00 Temperature 36.2 C L 36.6 C Pulse Rate 56 L 49 L Respiratory Rate 16 62 H Blood Pressure 141/76 H 133/79 Pulse Oximetry 100 100 100 08/10/19 07:23 08/10/19 08:00 08/10/19 09:00 Temperature 36.6 C Pulse Rate 67 70 58 L Respiratory Rate 21 H Blood Pressure 174/96 H Pulse Oximetry 100 100 100 Intake/Output Intake/Output: Intake
[2019-08-10] MEDS: FUROSEMIDE INJ 40 MG/4 ML VIAL IV PUSH (10:44)
--- NOTE | 2019-08-10 10:51 | WPDINTPN ---
Progress Note: A&P Assessment and Plan (1) Acute respiratory failure: Qualifiers: Respiratory failure complication: hypoxia Qualified Code(s): J96.01 - Acute respiratory failure with hypoxia Code(s): J96.00 - Acute respiratory failure, unspecified whether with hypoxia or hypercapnia Status: Acute Assessment and Plan: patient developed hypoxia and oxygen requirements were increasing, patient was intubated on 08/07/2020 any and placed to CMV mode of ventilation - chest x-ray and ABGs reviewed, currently on 40% FiO2 and peep of 8 - Bilateral pleural effusions on chest x-ray. Will diurese with Lasix today - likely pneumonia and/or pulmonary vascular congestion - sedated with propofol infusion (2) Acute coronary syndrome: Code(s): I24.9 - Acute ischemic heart disease, unspecified Status: Acute Assessment and Plan: patient status post PTCA/PCI with ÁNGELA x1 to mid circumflex - patient appeared to be a delayed presentation of STEMI - echo has been ordered - continue aspirin, Brilinta and metoprolol - holding statin secondary to elevated LFTs - would resume WES-inhibitor or ARB once kidney function improves (3) CAD (coronary artery disease): Qualifiers: Coronary Disease-Associated Artery/Lesion type: [place] artery [place] vs. transplanted heart: [place] heart Associated angina: with unstable angina Qualified Code(s): I25.110 - Atherosclerotic heart disease of [place] coronary artery with unstable angina pectoris Code(s): I25.10 - Atherosclerotic heart disease of [place] coronary artery without angina pectoris Status: Acute Assessment and Plan: history of coronary artery disease status post PCI in distant past. details unknown (4) Acute kidney injury superimposed on chronic kidney disease: Code(s): N17.9 - Acute kidney failure, unspecified; N18.9 - Chronic kidney disease, unspecified Status: Acute Assessment and Plan: KINGA precipitated over CKD likely multifactorial from cardiogenic and patient was on WES-inhibitor, hypoxia - appreciate Nephrology evaluation recommendation - renal ultrasound showed mild atrophy of left kidney, no hydronephrosis, small amount of ascites - monitor electrolytes urine output and creatinine - will discontinue IV fluids as patient is on tube feed - will replace potassium (5) Hyperkalemia: Code(s): E87.5 - Hyperkalemia Status: Acute Assessment and Plan: RESOLVED: had to acute kidney injury, STEMI. - Patient was treated for hyperkalemia in the ED, repeat potassium this morning is within normal limits (6) Hyperlipidemia: Qualifiers: Hyperlipidemia type: unspecified Qualified Code(s): E78.5 - Hyperlipidemia, unspecified Code(s): E78.5 - Hyperlipidemia, unspecified Status: Acute Assessment and Plan: hold statin as patient's LFTs were elevated (7) Hypertension: Qualifiers: Hypertension type: essential hypertension Qualified Code(s): I10 - Essential (primary) hypertension Code(s): I10 - Essential (primary) hypertension Status: Acute Assessment and Plan: patient is off nitroglycerin infusion, blood pressures are stable - continue beta-erba (8) Suspected COVID-19 virus infection: Code(s): R68.89 - Other general symptoms and signs Status: Acute Assessment and Plan: COVID-19 suspected. SARS-CoV-2 PCR NEGATIVE Patient is in Airborne, Droplet and Contact Isolation (9) Elevated transaminase level: Code(s): R74.0 - Nonspecific elevation of levels of transaminase and lactic acid dehydrogenase [LDH] Status: Acute Assessment and Plan: likely from hypoperfusion due to STEMI, HYPOXIA - LFTS TRENDING DOWN - right upper quadrant ultrasound showed pancreas to be normal, liver is normal without focal lesion, no liver service nodularity. There is normal flow in the main p
--- NOTE | 2019-08-10 11:14 | PC.NURSE ---
3 attempts made to start peripheral iv to no avail
--- NOTE | 2019-08-10 11:18 | PCDIET ---
Nutrition Follow-Up Complete: Nutrition Diagnosis: Inadequate oral intake related to mechanical ventilation as evidenced by NPO status. Nutrition Goal: Patient to meet estimated nutritional needs. Goal met. Patient tolerating Nepro at 30mL/hr goal rate for 1301kcal (with Propofol), 53g protein and 479mL free water over 22 hours/day. Last recorded weight is 56.7 kg which is increased. +I/O. Bowel Motility: BM x 2 on 08/09/19. Labs Reviewed: Hgb (8.8), Hct (28.3), Glu (134), BUN (54), Cr (2.7), K (3.2), Alb (2.5) Meds Noted: Zithromax, Rocephin, Pepcid, KCl, Lasix, Propofol (rate of 4.3mL/hr provides 113kcal over 24 hour period) Additional Notes: No documented skin breakdown. Nutrition Monitoring and Evaluation: Follow up every Tuesday/Tuesday. Follow daily in ICU rounds.
--- NOTE | 2019-08-10 11:33 | P.PNNP_ITS ---
Progress Note: A&P Assessment and Plan (1) Acute kidney injury superimposed on chronic kidney disease: Code(s): N17.9 - Acute kidney failure, unspecified; N18.9 - Chronic kidney disease, unspecified Status: Acute Assessment and Plan: * multifactorial etiology: - STEMI - prior cardiac insult ACCOUNTS PAYABLE OR RECEIVABLE CLERK - concurrent use of WES-I ACCOUNTS PAYABLE OR RECEIVABLE CLERK - pre-renal factors (low urine sodium) * not entirely sure what baseline creatinine is (was 1.4 in 2018) - will try to obtain any old records * follow trend of repeat labs and UOP (2) Hyperkalemia: Code(s): E87.5 - Hyperkalemia Status: Acute Assessment and Plan: * presumably due to #1 and WES-I use * s/p medical management * follow trend (3) History of cardiac arrest: Code(s): Z86.74 - Personal history of sudden cardiac arrest Status: Acute Assessment and Plan: * due to STEMI/ACS (see #5) * Cardiology following (4) Acute respiratory failure: Qualifiers: Respiratory failure complication: hypoxia Qualified Code(s): J96.01 - Acute respiratory failure with hypoxia Code(s): J96.00 - Acute respiratory failure, unspecified whether with hypoxia or hypercapnia Status: Acute Assessment and Plan: * on mechanical ventilation * due to pulmonary edema +/- pneumonia * follow cultures * on antibiotics (5) CAD (coronary artery disease): Qualifiers: Coronary Disease-Associated Artery/Lesion type: [place] artery [place] vs. transplanted heart: [place] heart Associated angina: with unstable angina Qualified Code(s): I25.110 - Atherosclerotic heart disease of [place] coronary artery with unstable angina pectoris Code(s): I25.10 - Atherosclerotic heart disease of [place] coronary artery without angina pectoris Status: Acute Assessment and Plan: * s/p cardiac catheterization with PTCA/PCI with ÁNGELA x 1 to mid circumflex * Cardiology following * maximizing medical therapy (6) Suspected COVID-19 virus infection: Code(s): R68.89 - Other general symptoms and signs Status: Acute Assessment and Plan: * negative testing Will continue to follow. Subjective Date/time seen: 08/10/19 11:33 Remains on mechanical ventilation and in no apparent distress; hemodynamically stable; no other acute issues or problems overnight or this AM. Exam Narrative: Exam Narrative: General: Elderly female - intubated/sedated Heart: normal S1 and S2; no rub Lungs: clear to auscultation Abdomen: soft, nontender, nondistended, positive bowel sounds Extremities: no cyanosis or clubbing; trace edema Skin: warm and intact Objective Data Vital Signs Vital Signs: Vital Signs Temp Pulse Resp BP Pulse Ox 08/10/19 14:00 36.8 C 66 21 H 151/101 H 100 08/10/19 12:16 64 100 08/10/19 12:00 36.6 C 64 21 H 144/81 H 08/10/19 10:00 36.6 C 58 L 14 150/75 H 08/10/19 09:00 58 L 08/10/19 08:00 36.6 C 70 21 H 174/96 H 08/10/19 07:23 67 08/10/19 06:00 36.6 C 62 H 133/79 08/10/19 04:28 49 L 100 08/10/19 04:00 36.2 C L 56 L 16 141/76 H 08/10/19 02:25 54 L 08/10/19 02:00 36.3 C L 50 L 16 133/74 08/10/19 00:00 36.4 C L 54 L 16 116/61 08/09/19 23:20 54 L 100
--- NOTE | 2019-08-10 11:33 | PM.PNNEP ---
Progress Note: A&P Assessment and Plan (1) Acute kidney injury superimposed on chronic kidney disease: Code(s): N17.9 - Acute kidney failure, unspecified; N18.9 - Chronic kidney disease, unspecified Status: Acute Assessment and Plan: multifactorial etiology: - STEMI - prior cardiac insult JAIL MANAGER - concurrent use of WES-I JAIL MANAGER - pre-renal factors (low urine sodium) not entirely sure what baseline creatinine is (was 1.4 in 2018) - will try to obtain any old records follow trend of repeat labs and UOP (2) Hyperkalemia: Code(s): E87.5 - Hyperkalemia Status: Acute Assessment and Plan: presumably due to #1 and WES-I use s/p medical management follow trend (3) History of cardiac arrest: Code(s): Z86.74 - Personal history of sudden cardiac arrest Status: Acute Assessment and Plan: due to STEMI/ACS (see #5) Cardiology following (4) Acute respiratory failure: Qualifiers: Respiratory failure complication: hypoxia Qualified Code(s): J96.01 - Acute respiratory failure with hypoxia Code(s): J96.00 - Acute respiratory failure, unspecified whether with hypoxia or hypercapnia Status: Acute Assessment and Plan: on mechanical ventilation due to pulmonary edema +/- pneumonia follow cultures on antibiotics (5) CAD (coronary artery disease): Qualifiers: Coronary Disease-Associated Artery/Lesion type: [place] artery [place] vs. transplanted heart: [place] heart Associated angina: with unstable angina Qualified Code(s): I25.110 - Atherosclerotic heart disease of [place] coronary artery with unstable angina pectoris Code(s): I25.10 - Atherosclerotic heart disease of [place] coronary artery without angina pectoris Status: Acute Assessment and Plan: s/p cardiac catheterization with PTCA/PCI with ÁNGELA x 1 to mid circumflex Cardiology following maximizing medical therapy (6) Suspected COVID-19 virus infection: Code(s): R68.89 - Other general symptoms and signs Status: Acute Assessment and Plan: negative testing Will continue to follow. Subjective Date/time seen: 08/10/19 11:33 Remains on mechanical ventilation and in no apparent distress; hemodynamically stable; no other acute issues or problems overnight or this AM. Exam Narrative: Exam Narrative: General: Elderly female - intubated/sedated Heart: normal S1 and S2; no rub Lungs: clear to auscultation Abdomen: soft, nontender, nondistended, positive bowel sounds Extremities: no cyanosis or clubbing; trace edema Skin: warm and intact Objective Data Vital Signs Vital Signs: Vital Signs Temp Pulse Resp BP Pulse Ox 08/10/19 14:00 36.8 C 66 21 H 151/101 H 100 08/10/19 12:16 64 100 08/10/19 12:00 36.6 C 64 21 H 144/81 H 100 08/10/19 10:00 36.6 C 58 L 14 150/75 H 100 08/10/19 09:00 58 L 100 08/10/19 08:00 36.6 C 70 21 H 174/96 H 100 08/10/19 07:23 67 100 08/10/19 06:00 36.6 C 62 H 133/79 100 08/10/19 04:28 49 L 100 08/10/19 04:00 36.2 C L 56 L 16 141/76 H 100 08/10/19 02:25 54 L 100 08/10/19 02:00 36.3 C L 50 L 16 133/74 100 08/10/19 00:00 36.4 C L 54 L 16 116/61 100 08/09/19 23:20 54 L 100 08/09/19 22:00 36.3 C L 52 L 16 123/56 L 100 08/09/19 21:59 60 08/09/19 21:08 59 L 100 08/09/19 20:00 36.1 C L 53 L 16 156/73 H 100 08/09/19 18:00 35.9 C L 51 L 16 148/72 H 100 08/09/19 17:15 53 L 100 08/09/19 16:00 35.7 C L 50 L 14 140/63 100 Intake/Output Intake/Output: Intake & Output 08/07/19 08/08/19 08/09/19 08/10/19 23:59 23:59 23:59 23:59 Intake Total 1300 2142 1608 Output Total 100 425 275 Balance 1200 1717 1333 Meds/Results Medications: Active Medications Generic Name Dose Route Start Last Admin Trade Name Freq PRN Reason Stop Dose Admin
[2019-08-10] MEDS: PROPOFOL IV EMULSION 100 ML 4.3 MG IV CONT (12:44)
[2019-08-10] MEDS: ENOXAPARIN 30 MG/0.3 ML SYRINGE SUB-Q (12:44)
[2019-08-10 22:53] LABS: Glucose Point of Care 157 (65-105)
[2019-08-11] VITALS (27 sets, daily range): BP systolic 90–163; BP diastolic 52–72; PULSE 56–99; RESP 14–25; TEMP 36.7–37.5; O2SAT 99–100
[2019-08-11 04:40] LABS: Alveolar/Arterial O2 Gradient 81.6 mmHg; Base Excess ABG 4.9 mEq/l (+/-2.0); Carboxyhemoglobin 0.2 % THb (0-2.0); Device VENTILATOR; Fractional Inspired Oxygen 30 %; HCO3 ABG 28.2 mEq/l (22.0-26.0); Methemoglobin ABG 0.6 %THb (0-1.5); Modified Allen's Test Pass; Oxygen Content ABG 14.2 %vol (16.0-22.0); Oxygen Saturation ABG 97.5 % (95.0-100.0); Oxyhemoglobin 95.5 % THb (90.0-100.0); PCO2 ABG 36.7 mmHg (35.0-45.0); PO2 ABG 89.2 mmHg (80.0-100.0); PO2 FiO2 Ratio Arterial Blood 2.97 %; Reduced Hemoglobin 3.7 %THb (0-5.0); Site Drawn RIGHT RADIAL; Total Hemoglobin 10.5 g/dL (12.0-18.0); pH ABG 7.503 (7.350-7.450)
[2019-08-11 04:41] LABS: Arterial Blood Gas PEEP 5 cmH2O; Arterial Blood Gas Tidal Volume 300 ml; Arterial Blood Gas Vent Mode CMV; Arterial Blood Gas Ventilator rate 14 /MIN
[2019-08-11] MEDS: CENTRAL LINE FLUSH 10 ML IV PUSH ×3 (05:01→20:25)
[2019-08-11] MEDS: hydrALAZINE HCL 20 MG/ML VIAL IV PUSH (05:01)
[2019-08-11 05:06] LABS: Hematocrit 30.4 % (37.0-47.0); Hemoglobin 9.2 g/dL (12.0-15.0); Mean Corpuscular HGB Conc 30.3 g/dl (32-36); Mean Corpuscular Hemoglobin 26.6 pg (26-34); Mean Corpuscular Volume 87.9 fl (80-100); Mean Platelet Volume 9.3 fl (7.4-10.4); Platelet Count Result 252 k/mm3 (150-375); Red Blood Count 3.46 M/mm3 (4.2-5.4); Red Cell Distribution Width 16.9 % (11.5-14.5); White Blood Count 13.5 K/mm3 (4.5-10.0)
[2019-08-11 05:43] LABS: D Dimer > 20.00 ug/mL (<0.48)
[2019-08-11 05:44] LABS: Alanine Aminotransferase 253 U/L (4-35); Albumin Level 2.9 g/dL (3.5-5.1); Alkaline Phosphatase 106 U/L (38-126); Aspartate Amino Transferase 99 U/L (14-36); Bilirubin,Total 0.6 mg/dL (0.2-1.3); Blood Urea Nitrogen 49 mg/dL (7-17); CRP 14.1 mg/dL (<1.0); Calcium 8.6 mg/dL (8.4-10.2); Carbon Dioxide 32 mmol/L (22-30); Chloride 101 mmol/L (98-107); Estimated Glomerular Filt Rate 19; Glucose 128 mg/dL (65-105); Lactate Dehydrogenase 965 U/L (313-618); Magnesium 1.8 mg/dL (1.6-2.3); Phosphorus 3.7 mg/dL (2.5-4.5); Potassium 3.1 mmol/L (3.4-5.0); Sodium 138 mmol/L (137-145)
[2019-08-11] MEDS: FUROSEMIDE INJ 40 MG/4 ML VIAL IV PUSH (08:23)
[2019-08-11] MEDS: POTASSIUM CHLORIDE 20 MEQ PACKET (FOR LIQUID) 40 MEQ FEED TUBE (08:23)
[2019-08-11] MEDS: FAMOTIDINE 20 MG/2 ML VIAL IV PUSH (08:24)
[2019-08-11] MEDS: ENOXAPARIN 30 MG/0.3 ML SYRINGE SUB-Q (08:24)
[2019-08-11] MEDS: TICAGRELOR 90 MG TABLET PO ×2 (08:24→20:25)
[2019-08-11] MEDS: METOPROLOL TARTRATE 50 MG TAB PO ×2 (08:24→20:24)
[2019-08-11] MEDS: ASPIRIN 81 MG ENTERIC TABLET PO (08:25)
--- NOTE | 2019-08-11 10:46 | P.PNNP_ITS ---
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 - pre-renal factors (low urine sodium) - contrast/dye (but creatinine already elevated pre-contrast exposure) * not entirely sure what baseline creatinine is (was 1.4 in 2018) - will try to obtain any old records * creatinine relatively stable if not improving * follow trend of repeat labs and UOP (2) Hyperkalemia: Code(s): E87.5 - Hyperkalemia Status: Acute Assessment and Plan: * presumably due to #1 and WES-I use * s/p medical management * follow trend (3) History of cardiac arrest: Code(s): Z86.74 - Personal history of sudden cardiac arrest Status: Acute Assessment and Plan: * due to STEMI/ACS (see #5) * Cardiology following (4) Acute respiratory failure: Qualifiers: Respiratory failure complication: hypoxia Qualified Code(s): J96.01 - Acute respiratory failure with hypoxia Code(s): J96.00 - Acute respiratory failure, unspecified whether with hypoxia or hypercapnia Status: Acute Assessment and Plan: * on mechanical ventilation * due to pulmonary edema +/- pneumonia * follow cultures * on antibiotics (5) CAD (coronary artery disease): Qualifiers: Associated angina: with unstable angina Coronary Disease-Associated Artery/Lesion type: [place] artery [place] vs. transplanted heart: [place] heart Qualified Code(s): I25.110 - Atherosclerotic heart disease of [place] coronary artery with unstable angina pectoris Code(s): I25.10 - Atherosclerotic heart disease of [place] coronary artery without angina pectoris Status: Acute Assessment and Plan: * s/p cardiac catheterization with PTCA/PCI with ÁNGELA x 1 to mid circumflex * Cardiology following * maximizing medical therapy Will continue to follow. Subjective Date/time seen: 08/11/19 10:46 Exam Narrative: Exam Narrative: General: Elderly female - intubated/sedated Heart: normal S1 and S2; no rub Lungs: clear to auscultation Abdomen: soft, nontender, nondistended, positive bowel sounds Extremities: no cyanosis or clubbing; trace edema Skin: no rash or nodules Objective Data Vital Signs Vital Signs: Vital Signs Temp Pulse Resp BP Pulse Ox 08/11/19 10:00 83 23 H 133/64 100 08/11/19 08:30 89 100 08/11/19 08:24 84 08/11/19 08:00 36.9 C 78 15 125/57 L 100 08/11/19 06:00 36.8 C 99 25 H 131/59 L 99 08/11/19 04:26 69 100 08/11/19 04:00 36.7 C 74 19 163/67 H 99 08/11/19 02:00 36.8 C 60 18 153/67 H 100 08/11/19 01:57 61 100 08/11/19 00:00 37.0 C 62 18 142/72 H 100 08/10/19 23:23 58 L 100 08/10/19 22:00 37.2 C 55 L 20 130/67 100 08/10/19 20:15 70 08/10/19 20:00 37.1 C 62 19 148/63 H 100 08/10/19 19:50 65 100 08/10/19 18:00 36.9 C 62 14 145/63 H 100 08/10/19 16:38 81 100 08/10/19 16:00 36.9 C 69 20 152/68 H 100 08/10/19 14:00 36.8 C 66 21 H 151/101 H 100
--- NOTE | 2019-08-11 10:46 | PM.PNNEP ---
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 - pre-renal factors (low urine sodium) - contrast/dye (but creatinine already elevated pre-contrast exposure) not entirely sure what baseline creatinine is (was 1.4 in 2018) - will try to obtain any old records creatinine relatively stable if not improving follow trend of repeat labs and UOP (2) Hyperkalemia: Code(s): E87.5 - Hyperkalemia Status: Acute Assessment and Plan: presumably due to #1 and WES-I use s/p medical management follow trend (3) History of cardiac arrest: Code(s): Z86.74 - Personal history of sudden cardiac arrest Status: Acute Assessment and Plan: due to STEMI/ACS (see #5) Cardiology following (4) Acute respiratory failure: Qualifiers: Respiratory failure complication: hypoxia Qualified Code(s): J96.01 - Acute respiratory failure with hypoxia Code(s): J96.00 - Acute respiratory failure, unspecified whether with hypoxia or hypercapnia Status: Acute Assessment and Plan: on mechanical ventilation due to pulmonary edema +/- pneumonia follow cultures on antibiotics (5) CAD (coronary artery disease): Qualifiers: Associated angina: with unstable angina Coronary Disease-Associated Artery/Lesion type: [place] artery [place] vs. transplanted heart: [place] heart Qualified Code(s): I25.110 - Atherosclerotic heart disease of [place] coronary artery with unstable angina pectoris Code(s): I25.10 - Atherosclerotic heart disease of [place] coronary artery without angina pectoris Status: Acute Assessment and Plan: s/p cardiac catheterization with PTCA/PCI with ÁNGELA x 1 to mid circumflex Cardiology following maximizing medical therapy Will continue to follow. Subjective Date/time seen: 08/11/19 10:46 Exam Narrative: Exam Narrative: General: Elderly female - intubated/sedated Heart: normal S1 and S2; no rub Lungs: clear to auscultation Abdomen: soft, nontender, nondistended, positive bowel sounds Extremities: no cyanosis or clubbing; trace edema Skin: no rash or nodules Objective Data Vital Signs Vital Signs: Vital Signs Temp Pulse Resp BP Pulse Ox 08/11/19 10:00 83 23 H 133/64 100 08/11/19 08:30 89 100 08/11/19 08:24 84 08/11/19 08:00 36.9 C 78 15 125/57 L 100 08/11/19 06:00 36.8 C 99 25 H 131/59 L 99 08/11/19 04:26 69 100 08/11/19 04:00 36.7 C 74 19 163/67 H 99 08/11/19 02:00 36.8 C 60 18 153/67 H 100 08/11/19 01:57 61 100 08/11/19 00:00 37.0 C 62 18 142/72 H 100 08/10/19 23:23 58 L 100 08/10/19 22:00 37.2 C 55 L 20 130/67 100 08/10/19 20:15 70 08/10/19 20:00 37.1 C 62 19 148/63 H 100 08/10/19 19:50 65 100 08/10/19 18:00 36.9 C 62 14 145/63 H 100 08/10/19 16:38 81 100 08/10/19 16:00 36.9 C 69 20 152/68 H 100 08/10/19 14:00 36.8 C 66 21 H 151/101 H 100 08/10/19 12:16 64 100 08/10/19 12:00 36.6 C 64 21 H 144/81 H 100 Intake/Output Intake/Output: Intake & Output 08/08/19 08/09/19 08/10/19 08/11/19 23:59 23:59 23:59 23:59 Intake Total 1300 2142 2427 489 Output Total 950 862 5721 2775 Balance 1200 1764 245 -7676 Meds/Results Medications: Active Medications Generic Name Dose Route Start Last Admin Trade Name Freq PRN Reason Stop Dose Admin Aspirin 81 mg 08/09/19 09:00 08/11/19 08:25 Aspirin Ec PO 81 mg QAM BRAULIO Administration Atorvastatin Calcium 80 mg 08/09/19 09:00 Lipitor PO DAILY BRAULIO Enoxaparin Sodium 30 mg 08/10/19 11
--- NOTE | 2019-08-11 12:24 | WPDINTPN ---
Progress Note: A&P Assessment and Plan (1) Acute respiratory failure: Qualifiers: Respiratory failure complication: hypoxia Qualified Code(s): J96.01 - Acute respiratory failure with hypoxia Code(s): J96.00 - Acute respiratory failure, unspecified whether with hypoxia or hypercapnia Status: Acute Assessment and Plan: post cardiac catheterization, patient developed hypoxia and oxygen requirements were increasing, patient was intubated on 08/07/2020 any and placed to CMV mode of ventilation - chest x-ray and ABGs reviewed, currently on 30% FiO2 and peep of 5 - chest x-ray shows improving bilateral airspace disease which may represent resolving edema or pneumonia, small pleural effusions. - likely pneumonia and/or pulmonary vascular congestion - sedated with propofol infusion - will switch propofol to Precedex, place patient on SBT, patient was tachycardic, tachypneic, with low tidal volumes. RSBI was significantly elevated. placed patient on ASV mode of ventilation on 30% FiO2 - Will diurese patient again today (2) Acute coronary syndrome: Code(s): I24.9 - Acute ischemic heart disease, unspecified Status: Acute Assessment and Plan: patient status post PTCA/PCI with ÁNGELA x1 to mid circumflex - patient appeared to be a delayed presentation of STEMI - echo has been ordered - continue aspirin, Brilinta and metoprolol - LFTs trending down - would resume WES-inhibitor or ARB once kidney function improves (3) CAD (coronary artery disease): Qualifiers: Coronary Disease-Associated Artery/Lesion type: [place] artery [place] vs. transplanted heart: [place] heart Associated angina: with unstable angina Qualified Code(s): I25.110 - Atherosclerotic heart disease of [place] coronary artery with unstable angina pectoris Code(s): I25.10 - Atherosclerotic heart disease of [place] coronary artery without angina pectoris Status: Acute Assessment and Plan: history of coronary artery disease status post PCI in distant past. details unknown - echocardiogram 08/08/2019: LV chamber mildly enlarged, LV systolic function severely reduced, EF 30-35%. grade 3 diastolic dysfunction, severe mitral valve regurg [id number] tricuspid valve regurgitation, severe pulmonary hypertension with RVSP of 72 mmHg. (4) Acute kidney injury superimposed on chronic kidney disease: Code(s): N17.9 - Acute kidney failure, unspecified; N18.9 - Chronic kidney disease, unspecified Status: Acute Assessment and Plan: KINGA precipitated over CKD likely multifactorial from cardiogenic shock, patient was on WES-inhibitor, hypoxia, congestive heart failure - appreciate Nephrology evaluation recommendation - renal ultrasound showed mild atrophy of left kidney, no hydronephrosis, small amount of ascites - monitor electrolytes urine output and creatinine - will replace potassium - patient to diuresed well, will repeat diuresis again today - creatinine gradually improving (5) Hyperkalemia: Code(s): E87.5 - Hyperkalemia Status: Acute Assessment and Plan: RESOLVED: had to acute kidney injury, STEMI. - Patient was treated for hyperkalemia in the ED, repeat potassium this morning is within normal limits (6) Hyperlipidemia: Qualifiers: Hyperlipidemia type: unspecified Qualified Code(s): E78.5 - Hyperlipidemia, unspecified Code(s): E78.5 - Hyperlipidemia, unspecified Status: Acute Assessment and Plan: hold statin as patient's LFTs were elevated (7) Hypertension: Qualifiers: Hypertension type: essential hypertension Qualified Code(s): I10 - Essential (primary) hypertension Code(s): I10 - Essential (primary) hypertension Status: Acute Assessment and Plan: patient is off nitroglycerin infusion, blood pressures are stable - continue beta-reba (8) Suspected COVID-19 virus infec
--- NOTE | 2019-08-11 14:31 | PM.PNCARD ---
Progress Note: A&P Assessment and Plan (1) Acute coronary syndrome: Code(s): I24.9 - Acute ischemic heart disease, unspecified Status: Acute Assessment and Plan: Delayed presentation ST-elevation inferior myocardial infarction. Continue aspirin and Brilinta without interruption. Continue Metoprolol. Holding statin secondary to elevated LFTs. resume when able. She will eventually need further workup regarding her significant LAD disease/occluded RCA and mitral regurgitation. patient remains quite ill although hemodynamically stable at present. Monitor volume status closely. Efforts at extubation per Critical Care. (2) CAD (coronary artery disease): Qualifiers: Coronary Disease-Associated Artery/Lesion type: [place] artery [place] vs. transplanted heart: [place] heart Associated angina: with unstable angina Qualified Code(s): I25.110 - Atherosclerotic heart disease of [place] coronary artery with unstable angina pectoris Code(s): I25.10 - Atherosclerotic heart disease of [place] coronary artery without angina pectoris Status: Acute Assessment and Plan: known history of RCA stent remotely (3) Mitral regurgitation: Code(s): I34.0 - Nonrheumatic mitral (valve) insufficiency Status: Acute Assessment and Plan: significant MR undoubtedly due to posterior medial papillary muscle dysfunction. (4) Cardiomyopathy: Code(s): I42.9 - Cardiomyopathy, unspecified Status: Acute Assessment and Plan: reasonably compensated at this time. Per echo 08/08/2019 EF 30-35% with akinetic anterolateral, inferolateral, apical cap, and basal inferior wall. hypokinetic anterior, apical inferior and mid inferior samuel. Severe pulmonary hypertension RVSP 72 mm mercury, severe mitral valve regurgitation. (5) History of cardiac arrest: Code(s): Z86.74 - Personal history of sudden cardiac arrest Status: Acute Assessment and Plan: ACS versus hyperkalemia versus both Stable, no acute issues presently. (6) Hyperkalemia: Code(s): E87.5 - Hyperkalemia Status: Acute Assessment and Plan: Resolved (7) Acute kidney injury superimposed on chronic kidney disease: Code(s): N17.9 - Acute kidney failure, unspecified; N18.9 - Chronic kidney disease, unspecified Status: Acute Assessment and Plan: Minimal improvement thus far, unknown baseline creatinine. Continue to monitor. Followed by Dr. Gonzales in [place] WES-inhibitor resume. (8) Hyperlipidemia: Qualifiers: Hyperlipidemia type: unspecified Qualified Code(s): E78.5 - Hyperlipidemia, unspecified Code(s): E78.5 - Hyperlipidemia, unspecified Status: Acute Assessment and Plan: Atorvastatin 80 mg on hold due to elevated LFTs. (9) Hypertension: Qualifiers: Hypertension type: essential hypertension Qualified Code(s): I10 - Essential (primary) hypertension Code(s): I10 - Essential (primary) hypertension Status: Acute Assessment and Plan: Continue metoprolol 50 mg p.o. b.i.d. Subjective Date/time seen: Date of service:08/11/19 14:31 Interval history: follow-up for Acute coronary syndrome status post PCI to OM branch, occluded RCA, significant LAD disease and significant mitral valve regurgitation. Date of service 08/11/19: Remains intubated and sedated on mechanical ventilatory support. Failed spontaneous breathing trials earlier today. Decompensated during the evening following the PCI requiring mechanical ventilation. Opens rise transiently, not following direct commands. Systolic blood pressures in the 90s, no pressor support. No new issues overnight. Review of Systems Review of Systems: All systems reviewed & are unremarkable except as noted in HPI and below ROS unobtainable: Yes unobtainable due to endotracheal tube Constitutional: Constitutional: Reports weakness Eyes: Eyes:
--- NOTE | 2019-08-11 18:27 | PM.IMPN ---
Progress Note: A&P Assessment and Plan (1) Acute respiratory failure: Qualifiers: Respiratory failure complication: hypoxia Qualified Code(s): J96.01 - Acute respiratory failure with hypoxia Code(s): J96.00 - Acute respiratory failure, unspecified whether with hypoxia or hypercapnia Status: Acute Assessment and Plan: Patient decompensated requiring intubation on 08/08/19. COVID negative. [place] related to pulmonary edema +/- PNA. Stable on [facility] ventilation. ABG showing 7.54//147. CXR showing bilateral effusions and bibasilar airspace disease. Consider stopping IVF and give trial of Lasix. Vent management per discharge rn. 08/11/19 18:27 Patient is 78-year-old female with history of coronary artery disease 20 years ago patient had been feeling tired with indigestion for 5 days prior to coming to emergency department apparently patient was seen by her primary care doctor had lab drawn which with the patient and elevated potassium of 5.7 elevated creatinine and liver enzymes was referred to the emergency department for further evaluation bed patient had a ventricle fibrillation and cardiac arrest ACLS was carried out and patient ROSC, patient was seen by course instructor and was emergently taken to cardiac laboratory specialist and patient had a severe stenosis circumflex artery which was stented and her LAD also required intervention which was decided be done at later time however patient decompensated after the PCI requiring intubation and was hypotensive, most likely patient had a myocardial infarction 5 days prior to coming to emergency depart suspect delayed presentation, (2) Ventricular tachycardia: Code(s): I47.2 - Ventricular tachycardia Status: Acute Assessment and Plan: Pateint developed VTach while in the ER requiring shock x 1. [place] related to the STEMI. No evidence of recurrence. Continue tele. Appreciate Cardiology input. (3) Acute coronary syndrome: Code(s): I24.9 - Acute ischemic heart disease, unspecified Status: Acute Assessment and Plan: Patient developed symptoms a few days prior to admission. She presented with elevated troponins to 2.5 and EKG changes concerning for ST elevation [place]. Patient developed ventricular tachycardia requiring shock x1. She was taken to the laboratory specialist where she was found to have acute thrombosis of the left circumflex that was stented successfully. She was also noted to have stenosis of the LAD that will require intervention at some point. The RCA was 100% stenosed which is probably chronic. Patient moved to the ICU. She was noted to have markedly elevated blood pressures. She developed respiratory distress requiring intubation and central line placement on 08/08/19. Currently patient is stable on mechanical ventilation. She is on Lopressor, aspirin and Brilinta. Lipitor on holdl. Appreciate Cardiology input. (4) STEMI (ST elevation myocardial infarction): Qualifiers: Involved coronary artery: left circumflex coronary artery Qualified Code(s): I21.21 - ST elevation (STEMI) myocardial infarction involving left circumflex coronary artery Code(s): I21.3 - ST elevation (STEMI) myocardial infarction of unspecified site Status: Acute Assessment and Plan: As above. (5) Pneumonia: Qualifiers: Pneumonia type: due to unspecified organism Laterality: bilateral Lung location: lower lobe of lung Qualified Code(s): J18.9 - Pneumonia, unspecified organism Code(s): J18.9 - Pneumonia, unspecified organism Status: Acute Assessment and Plan: Possible PNA on presentation. CXR today showing bilateral pleural effusion and bibasilar airspace disease. Currently on Rocephin and Azithromycin. (6) Suspected COVID-19 virus infection: Code(s): R68.89 - Other general symptoms and signs Status: Acute Assessment and Plan: COVID test has returned negative. D-dimer w
[2019-08-11 23:41] LABS: Glucose Point of Care 139 (65-105)
[2019-08-12] VITALS (23 sets, daily range): BP systolic 98–162; BP diastolic 50–82; PULSE 56–109; RESP 16–34; TEMP 36.4–37.2; O2SAT 93–100
[2019-08-12 05:06] LABS: Alveolar/Arterial O2 Gradient 79.3 mmHg; Base Excess ABG 4.9 mEq/l (+/-2.0); Carboxyhemoglobin 0.3 % THb (0-2.0); Fractional Inspired Oxygen 30 %; HCO3 ABG 28.1 mEq/l (22.0-26.0); Methemoglobin ABG 0.3 %THb (0-1.5); Oxygen Content ABG 13.7 %vol (16.0-22.0); Oxygen Saturation ABG 97.7 % (95.0-100.0); Oxyhemoglobin 95.5 % THb (90.0-100.0); PCO2 ABG 36.2 mmHg (35.0-45.0); PO2 ABG 92.1 mmHg (80.0-100.0); PO2 FiO2 Ratio Arterial Blood 3.07 %; Reduced Hemoglobin 3.9 %THb (0-5.0); Total Hemoglobin 10.1 g/dL (12.0-18.0); pH ABG 7.508 (7.350-7.450)
[2019-08-12 05:07] LABS: Device VENTILATOR; Modified Allen's Test Pass; Site Drawn LEFT RADIAL
[2019-08-12 05:08] LABS: Arterial Blood Gas PEEP 5 cmH2O; Arterial Blood Gas Tidal Volume 300 ml; Arterial Blood Gas Vent Mode CMV; Arterial Blood Gas Ventilator rate 14 /MIN
[2019-08-12 05:17] LABS: Hematocrit 28.7 % (37.0-47.0); Hemoglobin 8.7 g/dL (12.0-15.0); Mean Corpuscular HGB Conc 30.3 g/dl (32-36); Mean Corpuscular Hemoglobin 27.2 pg (26-34); Mean Corpuscular Volume 89.7 fl (80-100); Mean Platelet Volume 9.2 fl (7.4-10.4); Platelet Count Result 213 k/mm3 (150-375); Red Cell Distribution Width 17.4 % (11.5-14.5); White Blood Count 13.9 K/mm3 (4.5-10.0)
[2019-08-12] MEDS: CENTRAL LINE FLUSH 10 ML IV PUSH ×3 (05:21→20:17)
[2019-08-12 05:32] LABS: Alanine Aminotransferase 183 U/L (4-35); Albumin Level 2.8 g/dL (3.5-5.1); Alkaline Phosphatase 94 U/L (38-126); Aspartate Amino Transferase 66 U/L (14-36); Bilirubin,Total 0.4 mg/dL (0.2-1.3); Blood Urea Nitrogen 53 mg/dL (7-17); Carbon Dioxide 32 mmol/L (22-30); Chloride 101 mmol/L (98-107); Estimated Glomerular Filt Rate 19; Glucose 144 mg/dL (65-105); Phosphorus 4.4 mg/dL (2.5-4.5); Sodium 138 mmol/L (137-145)
[2019-08-12 05:42] LABS: D Dimer 3.44 ug/mL (<0.48)
[2019-08-12 06:19] LABS: CRP 14.7 mg/dL (<1.0); Lactate Dehydrogenase 778 U/L (313-618)
[2019-08-12] MEDS: METOPROLOL TARTRATE 50 MG TAB PO ×2 (08:38→20:22)
[2019-08-12] MEDS: FUROSEMIDE INJ 40 MG/4 ML VIAL IV PUSH (08:39)
[2019-08-12] MEDS: TICAGRELOR 90 MG TABLET PO ×2 (08:39→20:22)
[2019-08-12] MEDS: FAMOTIDINE 20 MG/2 ML VIAL IV PUSH (08:39)
[2019-08-12] MEDS: ASPIRIN 81 MG ENTERIC TABLET PO (08:39)
[2019-08-12] MEDS: ENOXAPARIN 30 MG/0.3 ML SYRINGE SUB-Q (08:39)
--- NOTE | 2019-08-12 09:39 | P.PNNP_ITS ---
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 - pre-renal factors (low urine sodium) - contrast/dye (but creatinine already elevated pre-contrast exposure) * not entirely sure what baseline creatinine is (was 1.4 in 2018) * creatinine relatively stable if not improving * responsive to IV diuretics - continue PRN * follow trend of repeat labs and UOP (2) Hyperkalemia: Code(s): E87.5 - Hyperkalemia Status: Acute Assessment and Plan: * presumably due to #1 and WES-I use * s/p medical management * follow trend (3) History of cardiac arrest: Code(s): Z86.74 - Personal history of sudden cardiac arrest Status: Acute Assessment and Plan: * due to STEMI/ACS (see #5) * Cardiology following (4) Acute respiratory failure: Qualifiers: Respiratory failure complication: hypoxia Qualified Code(s): J96.01 - Acute respiratory failure with hypoxia Code(s): J96.00 - Acute respiratory failure, unspecified whether with hypoxia or hypercapnia Status: Acute Assessment and Plan: * on mechanical ventilation * due to pulmonary edema +/- pneumonia * follow cultures * on antibiotics (5) CAD (coronary artery disease): Qualifiers: Associated angina: with unstable angina Coronary Disease-Associated Artery/Lesion type: [place] artery [place] vs. transplanted heart: [place] heart Qualified Code(s): I25.110 - Atherosclerotic heart disease of [place] coronary artery with unstable angina pectoris Code(s): I25.10 - Atherosclerotic heart disease of [place] coronary artery without angina pectoris Status: Acute Assessment and Plan: * s/p cardiac catheterization with PTCA/PCI with ÁNGELA x 1 to mid circumflex * Cardiology following * maximizing medical therapy Will continue to follow. Subjective Date/time seen: 08/12/19 09:39 Remains on mechanical ventilation but hemodynamically stable; good response to IV diuretics with improvement in CXR appearance; no acute issues or problems overnight or earlier this AM; appears comfortable otherwise. Exam Narrative: Exam Narrative: General: Elderly female - intubated/sedated Heart: normal S1 and S2; no rub Lungs: clear to auscultation Abdomen: soft, nontender, nondistended, positive bowel sounds Extremities: no cyanosis or clubbing; trace edema Skin: warm and dry Objective Data Vital Signs Vital Signs: Vital Signs Temp Pulse Resp BP Pulse Ox 08/12/19 08:38 64 08/12/19 08:15 72 98 08/12/19 05:59 37.2 C 62 17 113/73 100 08/12/19 05:58 64 08/12/19 05:10 58 L 100 08/12/19 04:00 37.0 C 56 L 16 116/61 100 08/12/19 02:03 64 100 08/12/19 02:00 37.1 C 62 16 121/78 100 08/12/19 01:59 61 08/12/19 01:35 61 100 08/12/19 00:00 62 08/11/19 23:58 37.4 C 66 18 106/67 100 08/11/19 22:00 37.5 C 56 L 16 98/67 L 100 08/11/19 20:49 65 100 08/11/19 20:24 63 08/11/19 20:00 37.3 C 62 17 118/62 100
--- NOTE | 2019-08-12 09:39 | PM.PNNEP ---
Progress Note: A&P Assessment and Plan (1) Acute kidney injury superimposed on chronic kidney disease: Code(s): N17.9 - Acute kidney failure, unspecified; N18.9 - Chronic kidney disease, unspecified Status: Acute Assessment and Plan: multifactorial etiology: - STEMI - prior cardiac insult [employer] - concurrent use of WES-I [employer] - pre-renal factors (low urine sodium) - contrast/dye (but creatinine already elevated pre-contrast exposure) not entirely sure what baseline creatinine is (was 1.4 in 2018) creatinine relatively stable if not improving responsive to IV diuretics - continue PRN follow trend of repeat labs and UOP (2) Hyperkalemia: Code(s): E87.5 - Hyperkalemia Status: Acute Assessment and Plan: presumably due to #1 and WES-I use s/p medical management follow trend (3) History of cardiac arrest: Code(s): Z86.74 - Personal history of sudden cardiac arrest Status: Acute Assessment and Plan: due to STEMI/ACS (see #5) Cardiology following (4) Acute respiratory failure: Qualifiers: Respiratory failure complication: hypoxia Qualified Code(s): J96.01 - Acute respiratory failure with hypoxia Code(s): J96.00 - Acute respiratory failure, unspecified whether with hypoxia or hypercapnia Status: Acute Assessment and Plan: on mechanical ventilation due to pulmonary edema +/- pneumonia follow cultures on antibiotics (5) CAD (coronary artery disease): Qualifiers: Associated angina: with unstable angina Coronary Disease-Associated Artery/Lesion type: [place] artery [place] vs. transplanted heart: [place] heart Qualified Code(s): I25.110 - Atherosclerotic heart disease of [place] coronary artery with unstable angina pectoris Code(s): I25.10 - Atherosclerotic heart disease of [place] coronary artery without angina pectoris Status: Acute Assessment and Plan: s/p cardiac catheterization with PTCA/PCI with ÁNGELA x 1 to mid circumflex Cardiology following maximizing medical therapy Will continue to follow. Subjective Date/time seen: 08/12/19 09:39 Remains on mechanical ventilation but hemodynamically stable; good response to IV diuretics with improvement in CXR appearance; no acute issues or problems overnight or earlier this AM; appears comfortable otherwise. Exam Narrative: Exam Narrative: General: Elderly female - intubated/sedated Heart: normal S1 and S2; no rub Lungs: clear to auscultation Abdomen: soft, nontender, nondistended, positive bowel sounds Extremities: no cyanosis or clubbing; trace edema Skin: warm and dry Objective Data Vital Signs Vital Signs: Vital Signs Temp Pulse Resp BP Pulse Ox 08/12/19 08:38 64 08/12/19 08:15 72 98 08/12/19 05:59 37.2 C 62 17 113/73 100 08/12/19 05:58 64 08/12/19 05:10 58 L 100 08/12/19 04:00 37.0 C 56 L 16 116/61 100 08/12/19 02:03 64 100 08/12/19 02:00 37.1 C 62 16 121/78 100 08/12/19 01:59 61 08/12/19 01:35 61 100 08/12/19 00:00 62 08/11/19 23:58 37.4 C 66 18 106/67 100 08/11/19 22:00 37.5 C 56 L 16 98/67 L 100 08/11/19 20:49 65 100 08/11/19 20:24 63 08/11/19 20:00 37.3 C 62 17 118/62 100 08/11/19 17:58 59 L 15 119/59 L 100 08/11/19 17:10 63 100 08/11/19 16:00 36.9 C 63 15 119/69 100 08/11/19 15:56 60 100 08/11/19 15:07 68 100 08/11/19 14:00 60 15 110/64 100 08/11/19 12:15 78 99 08/11/19 12:00 37.0 C 69 14 90/52 L 100 08/11/19 11:22 87 100 08/11/19 10:33 87 100 08/11/19 10:00 83 23 H 133/64 100 Intake/Output Intake/Output: Intake & Output 08/09/19 08/10/19 08/11/19 08/12/19 23:59 23:59 23:59 23:59 Intake Total 1544 2421 1091 489 Output Total 632 0963 9459 577 Balance 7117 502 -2659 -86 Meds/Results Medications: Activ
[2019-08-12 11:17] LABS: Alveolar/Arterial O2 Gradient 138.6 mmHg; Base Excess ABG 5.4 mEq/l (+/-2.0); Carboxyhemoglobin 0.3 % THb (0-2.0); Fractional Inspired Oxygen 40 %; HCO3 ABG 29.2 mEq/l (22.0-26.0); Methemoglobin ABG 0.5 %THb (0-1.5); Oxygen Content ABG 14.9 %vol (16.0-22.0); Oxyhemoglobin 96.2 % THb (90.0-100.0); PCO2 ABG 39.9 mmHg (35.0-45.0); PO2 ABG 100.7 mmHg (80.0-100.0); PO2 FiO2 Ratio Arterial Blood 2.52 %; Total Hemoglobin 10.9 g/dL (12.0-18.0); pH ABG 7.483 (7.350-7.450)
[2019-08-12 11:18] LABS: Arterial Blood Gas PEEP 5 cmH2O; Arterial Blood Gas Vent Mode SPONTANEOUS; Device VENTILATOR; Modified Allen's Test Pass; Site Drawn RIGHT RADIAL
[2019-08-12 11:19] LABS: Arterial Blood Gas Pressure Support 8 cmH2O
--- NOTE | 2019-08-12 11:21 | WPDINTPN ---
Progress Note: A&P Assessment and Plan (1) Acute respiratory failure: Qualifiers: Respiratory failure complication: hypoxia Qualified Code(s): J96.01 - Acute respiratory failure with hypoxia Code(s): J96.00 - Acute respiratory failure, unspecified whether with hypoxia or hypercapnia Status: Acute Assessment and Plan: post cardiac catheterization, patient developed hypoxia and oxygen requirements were increasing, patient was intubated on 08/07/2020 any and placed to CMV mode of ventilation - chest x-ray and ABGs reviewed, currently on 30% FiO2 and peep of 5 - chest x-ray shows improving bilateral airspace disease which may represent resolving edema or pneumonia, small pleural effusions. - likely pneumonia and/or pulmonary vascular congestion - ON PRECEDEX INFUSION - will place patient on SBT this morning and evaluate for extubation, - patient has been responding well to diuresis, will diurese again today (2) Acute coronary syndrome: Code(s): I24.9 - Acute ischemic heart disease, unspecified Status: Acute Assessment and Plan: patient status post PTCA/PCI with ÁNGELA x1 to mid circumflex - patient appeared to be a delayed presentation of STEMI - echo has been ordered - continue aspirin, Brilinta and metoprolol - LFTs trending down - would resume WES-inhibitor or ARB once kidney function improves (3) CAD (coronary artery disease): Qualifiers: Coronary Disease-Associated Artery/Lesion type: [place] artery [place] vs. transplanted heart: [place] heart Associated angina: with unstable angina Qualified Code(s): I25.110 - Atherosclerotic heart disease of [place] coronary artery with unstable angina pectoris Code(s): I25.10 - Atherosclerotic heart disease of [place] coronary artery without angina pectoris Status: Acute Assessment and Plan: history of coronary artery disease status post PCI in distant past. details unknown - echocardiogram 08/08/2019: LV chamber mildly enlarged, LV systolic function severely reduced, EF 30-35%. grade 3 diastolic dysfunction, severe mitral valve regurg [id number] tricuspid valve regurgitation, severe pulmonary hypertension with RVSP of 72 mmHg. (4) Acute kidney injury superimposed on chronic kidney disease: Code(s): N17.9 - Acute kidney failure, unspecified; N18.9 - Chronic kidney disease, unspecified Status: Acute Assessment and Plan: KINGA precipitated over CKD likely multifactorial from cardiogenic shock, patient was on WES-inhibitor, hypoxia, congestive heart failure - appreciate Nephrology evaluation recommendation - renal ultrasound showed mild atrophy of left kidney, no hydronephrosis, small amount of ascites - monitor electrolytes urine output and creatinine - will replace potassium - patient to diuresed well, will repeat diuresis again today - creatinine gradually improving (5) Hyperkalemia: Code(s): E87.5 - Hyperkalemia Status: Acute Assessment and Plan: RESOLVED: had to acute kidney injury, STEMI. - Patient was treated for hyperkalemia in the ED, repeat potassium this morning is within normal limits (6) Hyperlipidemia: Qualifiers: Hyperlipidemia type: unspecified Qualified Code(s): E78.5 - Hyperlipidemia, unspecified Code(s): E78.5 - Hyperlipidemia, unspecified Status: Acute Assessment and Plan: hold statin as patient's LFTs were elevated (7) Hypertension: Qualifiers: Hypertension type: essential hypertension Qualified Code(s): I10 - Essential (primary) hypertension Code(s): I10 - Essential (primary) hypertension Status: Acute Assessment and Plan: patient is off nitroglycerin infusion, blood pressures are stable - continue beta-reba - added IV hydralazine p.r.n. (8) Suspected COVID-19 virus infection: Code(s): R68.89 - Other general symptoms and signs Status:
--- NOTE | 2019-08-12 11:40 | PM.PNCARD ---
Progress Note: A&P Assessment and Plan (1) Acute coronary syndrome: Code(s): I24.9 - Acute ischemic heart disease, unspecified Status: Acute Assessment and Plan: Significant residual CAD complicated by severe mitral regurgitation and severe LV dysfunction. Prognosis rather poor. Patient remains critically ill despite hemodynamic stability at this time. Delayed presentation ST-elevation inferior myocardial infarction. Continue aspirin and Brilinta without interruption. Continue Metoprolol. Holding statin secondary to elevated LFTs. resume when able. She will eventually need further workup regarding her significant LAD disease/occluded RCA and mitral regurgitation. -Efforts at extubation per Critical Care. (2) CAD (coronary artery disease): Qualifiers: Coronary Disease-Associated Artery/Lesion type: [place] artery [place] vs. transplanted heart: [place] heart Associated angina: with unstable angina Qualified Code(s): I25.110 - Atherosclerotic heart disease of [place] coronary artery with unstable angina pectoris Code(s): I25.10 - Atherosclerotic heart disease of [place] coronary artery without angina pectoris Status: Acute Assessment and Plan: As above. Known history of RCA stent remotely (3) Mitral regurgitation: Code(s): I34.0 - Nonrheumatic mitral (valve) insufficiency Status: Acute Assessment and Plan: significant MR undoubtedly due to posterior medial papillary muscle dysfunction. Given systolic and diastolic murmur and possible auscultated rub, repeat 2D echocardiogram. Repeat 12 lead EKG. (4) Cardiomyopathy: Code(s): I42.9 - Cardiomyopathy, unspecified Status: Acute Assessment and Plan: reasonably compensated at this time. Per echo 08/08/2019 EF 30-35% with akinetic anterolateral, inferolateral, apical cap, and basal inferior wall. hypokinetic anterior, apical inferior and mid inferior samuel. Severe pulmonary hypertension RVSP 72 mm mercury, severe mitral valve regurgitation. (5) History of cardiac arrest: Code(s): Z86.74 - Personal history of sudden cardiac arrest Status: Acute Assessment and Plan: ACS versus hyperkalemia versus both Stable, no acute issues presently. (6) Hyperkalemia: Code(s): E87.5 - Hyperkalemia Status: Acute Assessment and Plan: Resolved (7) Acute kidney injury superimposed on chronic kidney disease: Code(s): N17.9 - Acute kidney failure, unspecified; N18.9 - Chronic kidney disease, unspecified Status: Acute Assessment and Plan: Slow, gradual improvement thus far, unknown baseline creatinine. Continue to monitor. WES-inhibitor resumed. (8) Hyperlipidemia: Qualifiers: Hyperlipidemia type: unspecified Qualified Code(s): E78.5 - Hyperlipidemia, unspecified Code(s): E78.5 - Hyperlipidemia, unspecified Status: Acute Assessment and Plan: Atorvastatin 80 mg on hold due to elevated LFTs. LFTs improving. Will resume when able. (9) Hypertension: Qualifiers: Hypertension type: essential hypertension Qualified Code(s): I10 - Essential (primary) hypertension Code(s): I10 - Essential (primary) hypertension Status: Acute Assessment and Plan: Continue metoprolol 50 mg p.o. b.i.d. Subjective Date/time seen: Date of service: 08/12/19 11:40 Interval history: follow-up for Acute coronary syndrome status post PCI to OM branch, occluded RCA, significant LAD disease and significant mitral valve regurgitation. Date of service 08/12/19: Remains intubated and sedated on mechanical ventilatory support. Awake, eyes open and not following direct commands reliably. Minimal ventilatory support, hemodynamically stable. Pulmonary vascular congestion on chest x-ray, receiving IV Lasix. No other new issues overnight. Review of Systems Review of Systems: All systems reviewed & are unre
--- NOTE | 2019-08-12 11:45 | ECG_ITS ---
Measurements Intervals [place] Rate: 74 P: 57 IN: 155 QRS: 43 QRSD: 104 T: -25 QT: 402 QTc: 449 Interpretive Statements SINUS RHYTHM DELAYED PRECORDIAL R/S TRANSITION INFERIOR INFARCT, PROBABLY RECENT ABNORMAL ECG Electronically Signed On 08-12-2019 13:20:02 CDT by Joseluis Barahona D.O.
[2019-08-12] MEDS: hydrALAZINE HCL 20 MG/ML VIAL IV PUSH (12:19)
[2019-08-12] MEDS: racEPINEPHrine 2.25% NEBU SOLN 0.5 ML VIAL.NEB INHALATION (12:58)
--- NOTE | 2019-08-12 16:56 | PM.IMPN ---
Progress Note: A&P Assessment and Plan (1) Acute respiratory failure: Qualifiers: Respiratory failure complication: hypoxia Qualified Code(s): J96.01 - Acute respiratory failure with hypoxia Code(s): J96.00 - Acute respiratory failure, unspecified whether with hypoxia or hypercapnia Status: Acute Assessment and Plan: Patient decompensated requiring intubation on 08/08/19. COVID negative. [place] related to pulmonary edema +/- PNA. [facility]. ABG showing 7.54//147. CXR showing bilateral effusions and bibasilar airspace disease. Consider stopping IVF and give trial of Lasix. Vent management per cleat blanker. 08/12/19 16:56 Patient is 78-year-old female with history of coronary artery disease 20 years ago patient had been feeling tired with indigestion for 5 days prior to coming to emergency department apparently patient was seen by her primary care doctor had lab drawn which with the patient and elevated potassium of 5.7 elevated creatinine and liver enzymes was referred to the emergency department for further evaluation bed patient had a ventricle fibrillation and cardiac arrest ACLS was carried out and patient ROSC, patient was seen by manual lathe machinist and was emergently taken to cardiac airport maintenance laborer and patient had a severe stenosis circumflex artery which was stented and her LAD also required intervention which was decided be done at later time however patient decompensated after the PCI requiring intubation and was hypotensive, most likely patient had a myocardial infarction 5 days prior to coming to emergency depart suspect delayed presentation, today patient clinically symptoms have improved and patient was extubated, are currently unable to provide detailed review of symptom or history is nodding her head this is doing better and denies any chest pain (2) Ventricular tachycardia: Code(s): I47.2 - Ventricular tachycardia Status: Acute Assessment and Plan: Pateint developed VTach while in the ER requiring shock x 1. [place] related to the STEMI. No evidence of recurrence. Continue tele. Appreciate Cardiology input. (3) Acute coronary syndrome: Code(s): I24.9 - Acute ischemic heart disease, unspecified Status: Acute Assessment and Plan: Patient developed symptoms a few days prior to admission. She presented with elevated troponins to 2.5 and EKG changes concerning for ST elevation [place]. Patient developed ventricular tachycardia requiring shock x1. She was taken to the airport maintenance laborer where she was found to have acute thrombosis of the left circumflex that was stented successfully. She was also noted to have stenosis of the LAD that will require intervention at some point. The RCA was 100% stenosed which is probably chronic. Patient moved to the ICU. She was noted to have markedly elevated blood pressures. She developed respiratory distress requiring intubation and central line placement on 08/08/19. Currently patient is stable on mechanical ventilation. She is on Lopressor, aspirin and Brilinta. Lipitor on holdl. Appreciate Cardiology input. (4) STEMI (ST elevation myocardial infarction): Qualifiers: Involved coronary artery: left circumflex coronary artery Qualified Code(s): I21.21 - ST elevation (STEMI) myocardial infarction involving left circumflex coronary artery Code(s): I21.3 - ST elevation (STEMI) myocardial infarction of unspecified site Status: Acute Assessment and Plan: As above. (5) Pneumonia: Qualifiers: Pneumonia type: due to unspecified organism Laterality: bilateral Lung location: lower lobe of lung Qualified Code(s): J18.9 - Pneumonia, unspecified organism Code(s): J18.9 - Pneumonia, unspecified organism Status: Acute Assessment and Plan: Possible PNA on presentation. CXR again today showing bilateral pleural effusion and bibasilar airspace disease without significant impr
[2019-08-12] MEDS: DEXAMETHASONE SOD PHOS INJ 4 MG/ML VIAL IV PUSH (18:36)
[2019-08-13] VITALS (20 sets, daily range): BP systolic 96–151; BP diastolic 59–94; PULSE 78–114; RESP 16–22; TEMP 35.9–37.1; O2SAT 91–98
[2019-08-13] MEDS: DEXAMETHASONE SOD PHOS INJ 4 MG/ML VIAL IV PUSH ×3 (00:20→13:40)
[2019-08-13 04:42] LABS: Hematocrit 28.2 % (37.0-47.0); Hemoglobin 8.8 g/dL (12.0-15.0); Mean Corpuscular HGB Conc 31.2 g/dl (32-36); Mean Corpuscular Hemoglobin 27.6 pg (26-34); Mean Corpuscular Volume 88.4 fl (80-100); Mean Platelet Volume 9.6 fl (7.4-10.4); Platelet Count Result 236 k/mm3 (150-375); Red Blood Count 3.19 M/mm3 (4.2-5.4); Red Cell Distribution Width 17.3 % (11.5-14.5); White Blood Count 10.1 K/mm3 (4.5-10.0)
[2019-08-13 04:58] LABS: Alanine Aminotransferase 151 U/L (4-35); Albumin Level 3.2 g/dL (3.5-5.1); Alkaline Phosphatase 93 U/L (38-126); Aspartate Amino Transferase 58 U/L (14-36); Bilirubin,Total 0.6 mg/dL (0.2-1.3); Blood Urea Nitrogen 61 mg/dL (7-17); Calcium 9.4 mg/dL (8.4-10.2); Carbon Dioxide 32 mmol/L (22-30); Chloride 98 mmol/L (98-107); Estimated Glomerular Filt Rate 19; Glucose 134 mg/dL (65-105); Magnesium 2.1 mg/dL (1.6-2.3); Phosphorus 5.2 mg/dL (2.5-4.5); Sodium 138 mmol/L (137-145)
[2019-08-13] MEDS: CENTRAL LINE FLUSH 10 ML IV PUSH (05:04)
[2019-08-13] MEDS: FUROSEMIDE INJ 40 MG/4 ML VIAL 20 MG IV PUSH (08:45)
[2019-08-13] MEDS: hydrALAZINE HCL 20 MG/ML VIAL 10 MG IV PUSH ×3 (08:45→18:34)
[2019-08-13] MEDS: ENOXAPARIN 30 MG/0.3 ML SYRINGE SUB-Q (08:46)
[2019-08-13] MEDS: METOPROLOL TARTRATE 25 MG TABLET 75 MG PO ×2 (08:47→21:08)
[2019-08-13] MEDS: ASPIRIN 81 MG ENTERIC TABLET PO (08:48)
[2019-08-13] MEDS: TICAGRELOR 90 MG TABLET PO ×2 (08:48→21:09)
[2019-08-13] MEDS: FAMOTIDINE 20 MG/2 ML VIAL IV PUSH (08:48)
--- NOTE | 2019-08-13 10:51 | PCDIET ---
Nutrition Follow-Up Complete: Nutrition Diagnosis: Inadequate oral intake related to mechanical ventilation as evidenced by NPO status. Nutrition Goal: Patient to meet estimated nutritional needs. Goal in progress. Patient extubated 08/12/19, and diet was just advanced to heart healthy with 1200mL fluid restriction which is appropriate, as tolerated. If medically appropriate, would consider medication to promote BM. Last recorded weight is 53.3 kg which is down from last review, but up from admission. -I/O. Bowel Motility: BM x 2 on 08/09/19. Labs Reviewed: Glu (134), BUN (61), Cr (2.5), Alb (3.2), PO4 (5.2) Meds Noted: Zithromax, Lasix, Rocephin, Decadron, Pepcid Additional Notes: Buttock ulcer documented. Will continue to monitor with same goals. Nutrition Monitoring and Evaluation: Follow up every 3 days.
--- NOTE | 2019-08-13 11:46 | ECHO_ITS ---
Patient Info Name: Jennifer Melendez Age: 78 years : 1940 Gender: Female Ht: 59 in Wt: 117 lbs BSA: 1.50 m2 HR: 92 bpm BP: 143 / 88 mmHg Heart Rhythm: Sinus Rhythm Technical Quality: Good Exam Date: 08/13/2019 7:45 AM Exam Location: [facility] Pulmonary Patient Status: Inpatient Admit Date: 08/08/2019 Staff Ordering Physician: Abhinav Tran MD Advertising Designer: Lio Hadley RDCS, RT Attending Provider: Neo Meyer MD Referring Physician: Marc ORTIZ; Exam Type: CA echo doppler color flow Study Info Indications I50.9 - Heart failure, unspecified Complete two-dimensional, color flow and Doppler transthoracic echocardiogram is performed. Summary 1. Left ventricular systolic function is moderately reduced, estimated at 35-40%. 2. There is hypokinesis of the anterolateral, inferior, anterior and apical samuel. The inferolateral and apical lateral samuel are akinetic. 3. There is moderately increased left ventricular wall thickness. 4. The left ventricular diastolic function is grade III diastolic dysfunction. 5. Right ventricular systolic function is reduced. 6. There is mild aortic valve regurgitation. 7. There is mild to moderate aortic valve stenosis with a peak velocity of 189 cm/s, mean gradient of 7 mmHg, and aortic valve area of 1.2 cm2. 8. The aortic valve is trileaflet. 9. There is focal calcification at the commissures of aortic valve between the left and noncoronary cusps. 10. There is severe mitral valve regurgitation. 11. There is evidence of mal-coaptation possibly related to papillary muscle infarction resulting in retraction/tethering of the posterior mitral valve leaflet. 12. There is mild to moderate tricuspid valve regurgitation. 13. Moderate pulmonary hypertension, estimated pulmonary arterial systolic pressure is 53 mmHg. 14. Left pleural effusion. Left Ventricle Left ventricular chamber dimension is normal. Left ventricular systolic function is moderately reduced, estimated at 35-40%. There is moderately increased left ventricular wall thickness. The left ventricular diastolic function is grade III diastolic dysfunction. E/e' 41.0 is severely elevated. Global longitudinal strain is severely elevated at -5 %. There is hypokinesis of the anterolateral, inferior, anterior and apical samuel. The inferolateral and apical lateral samuel are akinetic. Right Ventricle Right ventricular chamber dimension is normal. Right ventricular systolic function is reduced. Left Atria Left atrial chamber dimension is moderately enlarged. Right Atria Right atrial chamber dimension is normal. Aortic Valve The aortic valve is trileaflet. There is mild to moderate aortic valve stenosis with a peak velocity of 189 cm/s, mean gradient of 7 mmHg, and aortic valve area of 1.2 cm2. There is mild aortic valve regurgitation. There is mild aortic valve calcification. There is focal calcification at the commissures of aortic valve between the left and noncoronary cusps. Pulmonic Valve The pulmonic valve is not well visualized. There is mild pulmonic regurgitation. Mitral Valve The mitral valve has thickened leaflets. There is no mitral valve stenosis. There is severe mitral valve regurgitation. The mitral valve annulus is moderately calcified. There is evidence of mal-coaptation possibly related to papillary muscle infarction resulting in retraction/tethering of the posterior mitral valve leaflet. Tricuspid Valve The tricuspid valve leaflets are no
--- NOTE | 2019-08-13 14:15 | WPDINTPN ---
Progress Note: A&P Assessment and Plan (1) Acute respiratory failure: Qualifiers: Respiratory failure complication: hypoxia Qualified Code(s): J96.01 - Acute respiratory failure with hypoxia Code(s): J96.00 - Acute respiratory failure, unspecified whether with hypoxia or hypercapnia Status: Acute Assessment and Plan: post cardiac catheterization, patient developed hypoxia and oxygen requirements were increasing, patient was intubated on 08/07/2020. - Patient extubated on 08/12/2019, remains on room air - OFF PRECEDEX INFUSION - will diurese patient again today (2) Acute coronary syndrome: Code(s): I24.9 - Acute ischemic heart disease, unspecified Status: Acute Assessment and Plan: patient status post PTCA/PCI with ÁNGELA x1 to mid circumflex - patient appeared to be a delayed presentation of STEMI - echo has been ordered - continue aspirin, Brilinta and metoprolol - LFTs trending down - would resume WES-inhibitor or ARB once kidney function improves (3) CAD (coronary artery disease): Qualifiers: Coronary Disease-Associated Artery/Lesion type: [place] artery [place] vs. transplanted heart: [place] heart Associated angina: with unstable angina Qualified Code(s): I25.110 - Atherosclerotic heart disease of [place] coronary artery with unstable angina pectoris Code(s): I25.10 - Atherosclerotic heart disease of [place] coronary artery without angina pectoris Status: Acute Assessment and Plan: history of coronary artery disease status post PCI in distant past. details unknown - echocardiogram 08/08/2019: LV chamber mildly enlarged, LV systolic function severely reduced, EF 30-35%. grade 3 diastolic dysfunction, severe mitral valve regurg [id number] tricuspid valve regurgitation, severe pulmonary hypertension with RVSP of 72 mmHg. (4) Acute kidney injury superimposed on chronic kidney disease: Code(s): N17.9 - Acute kidney failure, unspecified; N18.9 - Chronic kidney disease, unspecified Status: Acute Assessment and Plan: KINGA precipitated over CKD likely multifactorial from cardiogenic shock, patient was on WES-inhibitor, hypoxia, congestive heart failure - appreciate Nephrology evaluation recommendation - renal ultrasound showed mild atrophy of left kidney, no hydronephrosis, small amount of ascites - monitor electrolytes urine output and creatinine - will replace potassium - patient to diuresed well, will repeat diuresis again today - creatinine gradually improving (5) Hyperkalemia: Code(s): E87.5 - Hyperkalemia Status: Acute Assessment and Plan: RESOLVED: had to acute kidney injury, STEMI. - Patient was treated for hyperkalemia in the ED, repeat potassium this morning is within normal limits (6) Hyperlipidemia: Qualifiers: Hyperlipidemia type: unspecified Qualified Code(s): E78.5 - Hyperlipidemia, unspecified Code(s): E78.5 - Hyperlipidemia, unspecified Status: Acute Assessment and Plan: hold statin as patient's LFTs were elevated - LFTs improving, (7) Hypertension: Qualifiers: Hypertension type: essential hypertension Qualified Code(s): I10 - Essential (primary) hypertension Code(s): I10 - Essential (primary) hypertension Status: Acute Assessment and Plan: patient is off nitroglycerin infusion, blood pressures are elevated - increase beta-reba, will schedule hydralazine (8) Suspected COVID-19 virus infection: Code(s): R68.89 - Other general symptoms and signs Status: Acute Assessment and Plan: COVID-19 suspected. SARS-CoV-2 PCR NEGATIVE Patient is OFF Airborne, Droplet and Contact Isolation (9) Elevated transaminase level: Code(s): R74.0 - Nonspecific elevation of levels of transaminase and lactic acid dehydrogenase [LDH] Status: Acute Assessment and Plan: likel
--- NOTE | 2019-08-13 15:19 | PM.IMPN ---
Progress Note: A&P Assessment and Plan (1) Acute respiratory failure: Qualifiers: Respiratory failure complication: hypoxia Qualified Code(s): J96.01 - Acute respiratory failure with hypoxia Code(s): J96.00 - Acute respiratory failure, unspecified whether with hypoxia or hypercapnia Status: Acute Assessment and Plan: Patient decompensated requiring intubation on 08/08/19. COVID negative. [place] related to pulmonary edema +/- PNA. Stable on [facility] ventilation. ABG showing 7.54//147. CXR showing bilateral effusions and bibasilar airspace disease. Consider stopping IVF and give trial of Lasix. Vent management per ceramics machine operator. 08/13/19 15:19 Patient is 78-year-old female with history of coronary artery disease 20 years ago patient had been feeling tired with indigestion for 5 days prior to coming to emergency department apparently patient was seen by her primary care doctor had lab drawn which with the patient and elevated potassium of 5.7 elevated creatinine and liver enzymes was referred to the emergency department for further evaluation bed patient had a ventricle fibrillation and cardiac arrest ACLS was carried out and patient ROSC, patient was seen by boat driver and was emergently taken to cardiac laborer construction or leak gang and patient had a severe stenosis circumflex artery which was stented and her LAD also required intervention which was decided be done at later time however patient decompensated after the PCI requiring intubation and was hypotensive, most likely patient had a myocardial infarction 5 days prior to coming to emergency depart suspect delayed presentation, on 08/11 patient clinically symptoms improved and patient was extubated, today cardiac echo showed moderately reduced ejection fraction of 35%, today patient was able to participate in physical therapy currently sitting on the chair, is feeling tired but denies any chest pain shortness of breath fever or chills, will transfer patient out of ICU to IMU. (2) Ventricular tachycardia: Code(s): I47.2 - Ventricular tachycardia Status: Acute Assessment and Plan: Pateint developed VTach while in the ER requiring shock x 1. [place] related to the STEMI. No evidence of recurrence. Continue tele. Appreciate Cardiology input. (3) Acute coronary syndrome: Code(s): I24.9 - Acute ischemic heart disease, unspecified Status: Acute Assessment and Plan: Patient developed symptoms a few days prior to admission. She presented with elevated troponins to 2.5 and EKG changes concerning for ST elevation [place]. Patient developed ventricular tachycardia requiring shock x1. She was taken to the laborer construction or leak gang where she was found to have acute thrombosis of the left circumflex that was stented successfully. She was also noted to have stenosis of the LAD that will require intervention at some point. The RCA was 100% stenosed which is probably chronic. Patient moved to the ICU. She was noted to have markedly elevated blood pressures. She developed respiratory distress requiring intubation and central line placement on 08/08/19. Currently patient is stable on mechanical ventilation. She is on Lopressor, aspirin and Brilinta. Lipitor on holdl. Appreciate Cardiology input. patient is off vent and plan is above (4) STEMI (ST elevation myocardial infarction): Qualifiers: Involved coronary artery: left circumflex coronary artery Qualified Code(s): I21.21 - ST elevation (STEMI) myocardial infarction involving left circumflex coronary artery Code(s): I21.3 - ST elevation (STEMI) myocardial infarction of unspecified site Status: Acute Assessment and Plan: As above. (5) Pneumonia: Qualifiers: Laterality: bilateral Lung location: lower lobe of lung Pneumonia type: due to unspecified organism Qualified Code(s): J18.9 - Pneumonia, unspecified organism Code(s): J18.9 - Pneumonia, unspecified organism
--- NOTE | 2019-08-13 15:30 | PM.PNCARD ---
Progress Note: A&P Assessment and Plan (1) Acute coronary syndrome: Code(s): I24.9 - Acute ischemic heart disease, unspecified Status: Acute Assessment and Plan: Significant residual CAD complicated by severe mitral regurgitation and severe LV dysfunction. Patient is improving clinically remains weak. Hemodynamically stable at present. Avoid hypotension, intravascular volume depletion. Monitor volume status closely. Patient relatively euvolemic at this time. Delayed presentation ST-elevation inferior myocardial infarction. Continue aspirin and Brilinta without interruption. Continue Metoprolol. Holding statin secondary to elevated LFTs. resume when able. She will eventually need further workup regarding her significant LAD disease/occluded RCA and mitral regurgitation. Patient is still deciding if she will follow up with Dr. Hayes her prior private Band Cutting Machine Operator as an outpatient. (2) CAD (coronary artery disease): Qualifiers: Associated angina: with unstable angina Coronary Disease-Associated Artery/Lesion type: [place] artery [place] vs. transplanted heart: [place] heart Qualified Code(s): I25.110 - Atherosclerotic heart disease of [place] coronary artery with unstable angina pectoris Code(s): I25.10 - Atherosclerotic heart disease of [place] coronary artery without angina pectoris Status: Acute Assessment and Plan: As above. Known history of RCA stent remotely (3) Mitral regurgitation: Code(s): I34.0 - Nonrheumatic mitral (valve) insufficiency Status: Acute Assessment and Plan: significant MR undoubtedly due to posterior medial papillary muscle dysfunction. (4) Cardiomyopathy: Code(s): I42.9 - Cardiomyopathy, unspecified Status: Acute Assessment and Plan: reasonably compensated at this time. Per echo 08/08/2019 EF 30-35% with akinetic anterolateral, inferolateral, apical cap, and basal inferior wall. hypokinetic anterior, apical inferior and mid inferior samuel. Severe pulmonary hypertension RVSP 72 mm mercury, severe mitral valve regurgitation. - Repeat 2D echocardiogram improved LV function EF 35-40% RVSP 53 mm mercury, severe MR persists. (5) History of cardiac arrest: Code(s): Z86.74 - Personal history of sudden cardiac arrest Status: Acute Assessment and Plan: ACS versus hyperkalemia versus both Stable, no acute issues presently. (6) Hyperkalemia: Code(s): E87.5 - Hyperkalemia Status: Acute Assessment and Plan: Resolved (7) Acute kidney injury superimposed on chronic kidney disease: Code(s): N17.9 - Acute kidney failure, unspecified; N18.9 - Chronic kidney disease, unspecified Status: Acute Assessment and Plan: Slow, gradual improvement thus far, unknown baseline creatinine. Continue to monitor. WES-inhibitor resumed. (8) Hyperlipidemia: Qualifiers: Hyperlipidemia type: unspecified Qualified Code(s): E78.5 - Hyperlipidemia, unspecified Code(s): E78.5 - Hyperlipidemia, unspecified Status: Acute Assessment and Plan: Atorvastatin 80 mg on hold due to elevated LFTs. LFTs improving. Will resume when able. (9) Hypertension: Qualifiers: Hypertension type: essential hypertension Qualified Code(s): I10 - Essential (primary) hypertension Code(s): I10 - Essential (primary) hypertension Status: Acute Assessment and Plan: Hydralazine scheduled. Avoid hypotension. Hold for systolic blood pressure less than 120 mm Hg. Transition to oral management tomorrow. Subjective Date/time seen: Date of Service: 08/13/19 15:30 Interval history: follow-up for Acute coronary syndrome status post PCI to OM branch, occluded RCA, significant LAD disease and significant mitral valve regurgitation. Date of service 08/13/19: extubated yesterday morning. Remains hemodynamically stable. Patient denies s
--- NOTE | 2019-08-13 16:12 | PC.NURSE ---
Pt transferred from ICU to room 214 via W/C. Bedside report given to Miley ST. Belongings sent with patient.
--- NOTE | 2019-08-13 16:13 | P.PNNP_ITS ---
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 * not entirely sure what baseline creatinine is (was 1.4 in 2018). Perhaps this is her baseline. * creatinine relatively stable. * responsive to IV diuretics - continue PRN * Will check more labs tomorrow. * We can check serology and immunofixation since she does not seem to be impr oving to her former baseline of 1.4. (2) Hyperkalemia: Code(s): E87.5 - Hyperkalemia Status: Acute Assessment and Plan: * Resolved (3) History of cardiac arrest: Code(s): Z86.74 - Personal history of sudden cardiac arrest Status: Acute Assessment and Plan: * due to STEMI/ACS (see #5) * Cardiology following (4) Acute respiratory failure: Qualifiers: Respiratory failure complication: hypoxia Qualified Code(s): J96.01 - Acute respiratory failure with hypoxia Code(s): J96.00 - Acute respiratory failure, unspecified whether with hypoxia or hypercapnia Status: Acute Assessment and Plan: * on mechanical ventilation * due to pulmonary edema +/- pneumonia * follow cultures * on antibiotics (5) CAD (coronary artery disease): Qualifiers: Coronary Disease-Associated Artery/Lesion type: [place] artery [place] vs. transplanted heart: [place] heart Associated angina: with unstable angina Qualified Code(s): I25.110 - Atherosclerotic heart disease of [place] coronary artery with unstable angina pectoris Code(s): I25.10 - Atherosclerotic heart disease of [place] coronary artery without angina pectoris Status: Acute Assessment and Plan: * s/p cardiac catheterization with PTCA/PCI with ÁNGELA x 1 to mid circumflex * Cardiology following * maximizing medical therapy Will continue to follow. Additional Plan Subjective Date/time seen: 08/13/19 16:13 Interval history: Jennifer is feeling okay today. She just moved out of the ICU. No chest pain or shortness of breath. Review of Systems Cardiovascular: Cardiovascular: Reports no additional cardiovascular complaints Respiratory: Respiratory: Reports no additional respiratory complaints Gastrointestinal: Gastrointestinal: Reports no additional gastrointestinal complaints Genitourinary: Genitourinary: Reports no additional female genitourinary complaints Exam Narrative: Exam Narrative: WDWN in NAD skin no rash head ncat lungs clear cor reg no rub abd BS+ nontender and soft ext no edema. Objective Data Vital Signs Vital Signs: Vital Signs - 24 hr 08/12/19 18:00 08/12/19 20:00 08/12/19 20:22 Temperature 36.4 C L Pulse Rate 82 86 83 Respiratory Rate 19 18 Blood Pressure 126/57 L 118/66 Pulse Oximetry 95 97 08/12/19 22:00 08/13/19 00:00 08/13/19 02:00 Temperature 37.1 C 36.7 C Pulse Rate 74 79 80
--- NOTE | 2019-08-13 16:13 | PM.PNNEP ---
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 not entirely sure what baseline creatinine is (was 1.4 in 2018). Perhaps this is her baseline. creatinine relatively stable. responsive to IV diuretics - continue PRN Will check more labs tomorrow. We can check serology and immunofixation since she does not seem to be improving to her former baseline of 1.4. (2) Hyperkalemia: Code(s): E87.5 - Hyperkalemia Status: Acute Assessment and Plan: Resolved (3) History of cardiac arrest: Code(s): Z86.74 - Personal history of sudden cardiac arrest Status: Acute Assessment and Plan: due to STEMI/ACS (see #5) Cardiology following (4) Acute respiratory failure: Qualifiers: Respiratory failure complication: hypoxia Qualified Code(s): J96.01 - Acute respiratory failure with hypoxia Code(s): J96.00 - Acute respiratory failure, unspecified whether with hypoxia or hypercapnia Status: Acute Assessment and Plan: on mechanical ventilation due to pulmonary edema +/- pneumonia follow cultures on antibiotics (5) CAD (coronary artery disease): Qualifiers: Coronary Disease-Associated Artery/Lesion type: [place] artery [place] vs. transplanted heart: [place] heart Associated angina: with unstable angina Qualified Code(s): I25.110 - Atherosclerotic heart disease of [place] coronary artery with unstable angina pectoris Code(s): I25.10 - Atherosclerotic heart disease of [place] coronary artery without angina pectoris Status: Acute Assessment and Plan: s/p cardiac catheterization with PTCA/PCI with ÁNGELA x 1 to mid circumflex Cardiology following maximizing medical therapy Will continue to follow. Additional Plan Subjective Date/time seen: 08/13/19 16:13 Interval history: Jennifer is feeling okay today. She just moved out of the ICU. No chest pain or shortness of breath. Review of Systems Cardiovascular: Cardiovascular: Reports no additional cardiovascular complaints Respiratory: Respiratory: Reports no additional respiratory complaints Gastrointestinal: Gastrointestinal: Reports no additional gastrointestinal complaints Genitourinary: Genitourinary: Reports no additional female genitourinary complaints Exam Narrative: Exam Narrative: WDWN in NAD skin no rash head ncat lungs clear cor reg no rub abd BS+ nontender and soft ext no edema. Objective Data Vital Signs Vital Signs: Vital Signs - 24 hr 08/12/19 18:00 08/12/19 20:00 08/12/19 20:22 Temperature 36.4 C L Pulse Rate 82 86 83 Respiratory Rate 19 18 Blood Pressure 126/57 L 118/66 Pulse Oximetry 95 97 08/12/19 22:00 08/13/19 00:00 08/13/19 02:00 Temperature 37.1 C 36.7 C Pulse Rate 74 79 80 Respiratory Rate 18 18 17 Blood Pressure 117/67 120/73 96/83 L Pulse Oximetry 97 97 98 08/13/19 04:00 08/13/19 06:00 08/13/19 07:46 Temperature 36.8 C 36.9 C 37.1 C Pulse Rate 83 89 91 Respiratory Rate 18 20 22 H Blood Pressure 132/92 H 143/88 H 151/94 H Pulse Oximetry 97 98 96 08/13/19 08:00 08/13/19 08:47 08/13/19 10:00 Temperature Pulse Rate 94 92 81 Respiratory Rate 18 Blood Pressure 127/67 Pulse Oximetry 97 97 08/13/19 12:00 08/13/19 13:55 Temperature 36.8 C Pulse Rate 81 79 Respiratory Rate 21 H 18 Blood Pressure 127/67 Pulse Oximetry 95 97 Intake/Output Intake/Output: Intake & Output 08/10/19 08/11/19
[2019-08-13 17:07] LABS: Creatine Kinase 41 U/L (30-135)
[2019-08-13 17:08] LABS: Erythrocyte Sedimentation Rate > 140 mm/hr (0-20)
[2019-08-13 17:13] LABS: Complement C3 119 mg/dL (88-165)
[2019-08-14] VITALS (19 sets, daily range): BP systolic 106–146; BP diastolic 55–99; PULSE 61–78; RESP 16–28; TEMP 36–36.6; O2SAT 93–100
[2019-08-14 05:03] LABS: Albumin Level 3.4 g/dL (3.5-5.1); Blood Urea Nitrogen 77 mg/dL (7-17); Calcium 9.6 mg/dL (8.4-10.2); Carbon Dioxide 28 mmol/L (22-30); Chloride 98 mmol/L (98-107); Estimated Glomerular Filt Rate 15; Glucose 147 mg/dL (65-105); Phosphorus 6.2 mg/dL (2.5-4.5); Potassium 4.2 mmol/L (3.4-5.0); Sodium 137 mmol/L (137-145)
[2019-08-14 07:13] LABS: Sodium Urine Random < 5 meq/L
[2019-08-14 07:22] LABS: Creatinine Urine 87.2 mg/dL
[2019-08-14 08:03] LABS: Total Protein Urine Random 269 mg/dL
[2019-08-14] MEDS: ASPIRIN 81 MG ENTERIC TABLET PO (08:33)
[2019-08-14] MEDS: TICAGRELOR 90 MG TABLET PO (08:33)
[2019-08-14] MEDS: ENOXAPARIN 30 MG/0.3 ML SYRINGE SUB-Q (08:33)
[2019-08-14] MEDS: METOPROLOL TARTRATE 25 MG TABLET 75 MG PO (08:33)
[2019-08-14] MEDS: FAMOTIDINE 20 MG/2 ML VIAL IV PUSH (08:34)
--- NOTE | 2019-08-14 10:55 | P.PNNP_ITS ---
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 * not entirely sure what baseline creatinine is (was 1.4 in 2018). Perhaps this is her baseline. * creatinine relatively stable. * Serology and immunofixation are pending. (2) Hyperkalemia: Code(s): E87.5 - Hyperkalemia Status: Acute Assessment and Plan: * Resolved (3) History of cardiac arrest: Code(s): Z86.74 - Personal history of sudden cardiac arrest Status: Acute Assessment and Plan: * due to STEMI/ACS (see #5) * Cardiology following (4) Acute respiratory failure: Qualifiers: Respiratory failure complication: hypoxia Qualified Code(s): J96.01 - Acute respiratory failure with hypoxia Code(s): J96.00 - Acute respiratory failure, unspecified whether with hypoxia or hypercapnia Status: Acute Assessment and Plan: * Resolved and breathing comfortably. (5) CAD (coronary artery disease): Qualifiers: Coronary Disease-Associated Artery/Lesion type: [place] artery [place] vs. transplanted heart: [place] heart Associated angina: with unstable angina Qualified Code(s): I25.110 - Atherosclerotic heart disease of [place] coronary artery with unstable angina pectoris Code(s): I25.10 - Atherosclerotic heart disease of [place] coronary artery without angina pectoris Status: Acute Assessment and Plan: * s/p cardiac catheterization with PTCA/PCI with ÁNGELA x 1 to mid circumflex * Cardiology following * maximizing medical therapy Additional Plan Subjective Date/time seen: 08/14/19 10:55 Interval history: Jennifer is lying in bed comfortably. Sitter is in the room because she keeps trying to get out of bed. Review of Systems Cardiovascular: Cardiovascular: Reports no additional cardiovascular complaints Respiratory: Respiratory: Reports no additional respiratory complaints Gastrointestinal: Gastrointestinal: Reports no additional gastrointestinal complaints Genitourinary: Genitourinary: Reports no additional female genitourinary complaints Exam Narrative: Exam Narrative: WDWN in NAD skin no rash or subcu nodules head ncat lungs clear cor reg no rub abd BS+ nontender and soft ext no edema or cyanosis Objective Data Vital Signs Vital Signs: Vital Signs - 24 hr 08/13/19 12:00 08/13/19 13:55 08/13/19 16:00 Temperature 36.8 C Pulse Rate 81 79 82 Respiratory Rate 21 H 18 Blood Pressure 127/67 Pulse Oximetry 95 97 08/13/19 16:16 08/13/19 18:00 08/13/19 18:30 Temperature 36.3 C L Pulse Rate 80 94 Respiratory Rate 20 Blood Pressure 122/61 136/85 Pulse Oximetry 98 08/13/19 19:28 08/13/19 20:00 08/13/19 21:08 Temperature 35.9 C L Pulse Rate 107 H 94 114 H
--- NOTE | 2019-08-14 10:55 | PM.PNNEP ---
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 not entirely sure what baseline creatinine is (was 1.4 in 2018). Perhaps this is her baseline. creatinine relatively stable. Serology and immunofixation are pending. (2) Hyperkalemia: Code(s): E87.5 - Hyperkalemia Status: Acute Assessment and Plan: Resolved (3) History of cardiac arrest: Code(s): Z86.74 - Personal history of sudden cardiac arrest Status: Acute Assessment and Plan: due to STEMI/ACS (see #5) Cardiology following (4) Acute respiratory failure: Qualifiers: Respiratory failure complication: hypoxia Qualified Code(s): J96.01 - Acute respiratory failure with hypoxia Code(s): J96.00 - Acute respiratory failure, unspecified whether with hypoxia or hypercapnia Status: Acute Assessment and Plan: Resolved and breathing comfortably. (5) CAD (coronary artery disease): Qualifiers: Coronary Disease-Associated Artery/Lesion type: [place] artery [place] vs. transplanted heart: [place] heart Associated angina: with unstable angina Qualified Code(s): I25.110 - Atherosclerotic heart disease of [place] coronary artery with unstable angina pectoris Code(s): I25.10 - Atherosclerotic heart disease of [place] coronary artery without angina pectoris Status: Acute Assessment and Plan: s/p cardiac catheterization with PTCA/PCI with ÁNGELA x 1 to mid circumflex Cardiology following maximizing medical therapy Additional Plan Subjective Date/time seen: 08/14/19 10:55 Interval history: Jennifer is lying in bed comfortably. Sitter is in the room because she keeps trying to get out of bed. Review of Systems Cardiovascular: Cardiovascular: Reports no additional cardiovascular complaints Respiratory: Respiratory: Reports no additional respiratory complaints Gastrointestinal: Gastrointestinal: Reports no additional gastrointestinal complaints Genitourinary: Genitourinary: Reports no additional female genitourinary complaints Exam Narrative: Exam Narrative: WDWN in NAD skin no rash or subcu nodules head ncat lungs clear cor reg no rub abd BS+ nontender and soft ext no edema or cyanosis Objective Data Vital Signs Vital Signs: Vital Signs - 24 hr 08/13/19 12:00 08/13/19 13:55 08/13/19 16:00 Temperature 36.8 C Pulse Rate 81 79 82 Respiratory Rate 21 H 18 Blood Pressure 127/67 Pulse Oximetry 95 97 08/13/19 16:16 08/13/19 18:00 08/13/19 18:30 Temperature 36.3 C L Pulse Rate 80 94 Respiratory Rate 20 Blood Pressure 122/61 136/85 Pulse Oximetry 98 08/13/19 19:28 08/13/19 20:00 08/13/19 21:08 Temperature 35.9 C L Pulse Rate 107 H 94 114 H Respiratory Rate 16 16 Blood Pressure 109/62 Pulse Oximetry 91 91 08/13/19 22:00 08/13/19 22:03 08/13/19 23:54 Temperature 35.9 C L Pulse Rate 114 H 105 H 78 Respiratory Rate 16 Blood Pressure 127/59 L Pulse Oximetry 98 96 08/14/19 00:00 08/14/19 02:00 08/14/19 04:00 Temperature 36.0 C L Pulse Rate 78 76 76 Respiratory Rate 16 16 Blood Pressure 113/75 Pulse Oximetry 96 95 08/14/19 06:29 08/14/19 07:40 08/14/19 08:33 Temperature 36.2 C L Pulse Rate 78 78 78 Respiratory Rate 18 Blood Pressure 139/79 Pulse Oximetry 94 Intake/Output Intake/Output: Intake & Output 08/11/19 08/12/19 08/13/19 08/14/19 23:59 23:59 23:59 23:59 Intake Total 1091
--- NOTE | 2019-08-14 12:05 | PM.PNCARD ---
Progress Note: A&P Assessment and Plan (1) CVA (cerebral vascular accident): Code(s): I63.9 - Cerebral infarction, unspecified Status: Acute Assessment and Plan: New focalizing neurologic deficits on my exam not previously documented concerning for acute/subacute infarction. STAT CT head, primary service notified, Neurology consult. MRI per neuro as appropriate. Patient developed new atrial fibrillation with rapid ventricular response overnight. While I would not expect fairly brief onset of Atrial fibrillation to result in CVA, remains a consideration. When able systemic anticoagulation, however, would need to discontinue Brilinta in favor of clopidogrel to reduce bleeding risk. (2) Atrial fibrillation: Code(s): I48.91 - Unspecified atrial fibrillation Status: Acute Assessment and Plan: New onset atrial fibrillation with rapid ventricular response overnight. Converted to sinus rhythm early this morning. Maintaining sinus rhythm on current medical therapy. Systemic anticoagulation would be advised, however, patient high risk for bleeding on triple therapy. Recommendations as above. Await Neurology recommendations as far as timing /safety of initiation of systemic anticoagulation. (3) Acute coronary syndrome: Code(s): I24.9 - Acute ischemic heart disease, unspecified Status: Acute Assessment and Plan: Continue medical therapy in this regard. Significant residual CAD complicated by severe mitral regurgitation and severe LV dysfunction. Patient is improving clinically remains weak. Hemodynamically stable at present. Avoid hypotension, intravascular volume depletion. Monitor volume status closely. Patient relatively euvolemic at this time. Delayed presentation ST-elevation inferior myocardial infarction. Continue aspirin and Brilinta without interruption. Continue Metoprolol. Holding statin secondary to elevated LFTs. resume when able. She will eventually need further workup regarding her significant LAD disease/occluded RCA and mitral regurgitation. (4) CAD (coronary artery disease): Qualifiers: Associated angina: with unstable angina Coronary Disease-Associated Artery/Lesion type: [place] artery [place] vs. transplanted heart: [place] heart Qualified Code(s): I25.110 - Atherosclerotic heart disease of [place] coronary artery with unstable angina pectoris Code(s): I25.10 - Atherosclerotic heart disease of [place] coronary artery without angina pectoris Status: Acute Assessment and Plan: As above. Known history of RCA stent remotely (5) Mitral regurgitation: Code(s): I34.0 - Nonrheumatic mitral (valve) insufficiency Status: Acute Assessment and Plan: Severe MR undoubtedly due to posterior medial papillary muscle dysfunction. (6) Cardiomyopathy: Code(s): I42.9 - Cardiomyopathy, unspecified Status: Acute Assessment and Plan: Compensated at this time. Per echo 08/08/2019 EF 30-35% with akinetic anterolateral, inferolateral, apical cap, and basal inferior wall. hypokinetic anterior, apical inferior and mid inferior samuel. Severe pulmonary hypertension RVSP 72 mm mercury, severe mitral valve regurgitation. - Repeat 2D echocardiogram improved LV function EF 35-40% RVSP 53 mm mercury, severe MR persists. (7) History of cardiac arrest: Code(s): Z86.74 - Personal history of sudden cardiac arrest Status: Acute Assessment and Plan: ACS versus hyperkalemia versus both Stable, no acute issues presently. (8) Acute kidney injury superimposed on chronic kidney disease: Code(s): N17.9 - Acute kidney failure, unspecified; N18.9 - Chronic kidney disease, unspecified Status: Acute Assessment and Plan: Slow, gradual improvement thus far, unknown baseline creatinine. Continue to monitor. WES-inhibitor resumed. (9) Hyperlipidemia: Qualifiers:
--- NOTE | 2019-08-14 13:19 | PM.IMPN ---
Progress Note: A&P Assessment and Plan (1) Acute respiratory failure: Qualifiers: Respiratory failure complication: hypoxia Qualified Code(s): J96.01 - Acute respiratory failure with hypoxia Code(s): J96.00 - Acute respiratory failure, unspecified whether with hypoxia or hypercapnia Status: Acute Assessment and Plan: Patient is 78-year-old female with history of coronary artery disease 20 years ago patient had been feeling tired with indigestion for 5 days prior to coming to emergency department apparently patient was seen by her primary care doctor had lab drawn which with the patient and elevated potassium of 5.7 elevated creatinine and liver enzymes was referred to the emergency department for further evaluation bed patient had a ventricle fibrillation and cardiac arrest ACLS was carried out and patient ROSC, patient was seen by formation fracturing operator and was emergently taken to cardiac lab intern and patient had a severe stenosis circumflex artery which was stented and her LAD also required intervention which was decided be done at later time however patient decompensated after the PCI requiring intubation and was hypotensive, most likely patient had a myocardial infarction 5 days prior to coming to emergency depart suspect delayed presentation, on 08/11 patient clinically symptoms improved and patient was extubated, today cardiac echo showed moderately reduced ejection fraction of 35%. per previous note Today @ 1130 pt had sudden weakess of her face and left side of her body MRI shows acute CVA pt will need full stroke work up seen by neurology, pt to be NPO with fluids tonite, can have her medications, pt will need MBS in the morning (2) Ventricular tachycardia: Code(s): I47.2 - Ventricular tachycardia Status: Acute Assessment and Plan: Pateint developed VTach while in the ER requiring shock x 1. [place] related to the STEMI. followed by cardiology (3) Acute coronary syndrome: Code(s): I24.9 - Acute ischemic heart disease, unspecified Status: Acute Assessment and Plan: Patient developed symptoms a few days prior to admission. She presented with elevated troponins to 2.5 and EKG changes concerning for ST elevation [place]. Patient developed ventricular tachycardia requiring shock x1. She was taken to the lab intern where she was found to have acute thrombosis of the left circumflex that was stented successfully. Currently patient is stable on mechanical ventilation. She is on Lopressor, aspirin and Brilinta. Seen by cardiology (4) STEMI (ST elevation myocardial infarction): Qualifiers: Involved coronary artery: left circumflex coronary artery Qualified Code(s): I21.21 - ST elevation (STEMI) myocardial infarction involving left circumflex coronary artery Code(s): I21.3 - ST elevation (STEMI) myocardial infarction of unspecified site Status: Acute Assessment and Plan: As above. (5) Pneumonia: Qualifiers: Laterality: bilateral Lung location: lower lobe of lung Pneumonia type: due to unspecified organism Qualified Code(s): J18.9 - Pneumonia, unspecified organism Code(s): J18.9 - Pneumonia, unspecified organism Status: Acute Assessment and Plan: Possible PNA on presentation. CXR again today showing bilateral pleural effusion and bibasilar airspace disease without significant improvement. Currently on Rocephin and Azithromycin. Pt is on Rocephin azithromycin (6) Suspected COVID-19 virus infection: Code(s): R68.89 - Other general symptoms and signs Status: Acute Assessment and Plan: COVID test has returned negative. (7) Elevated transaminase level: Code(s): R74.0 - Nonspecific elevation of levels of transaminase and lactic acid dehydrogenase [LDH] Status: Acute Assessment and Plan: AST and ALT elevated on admission and worse yesterday but better today. Mos
--- NOTE | 2019-08-14 13:32 | PCPTNOTE ---
Attempted therapy session. RN requested therapy to be held at this time. Pt is going for an MRI and is believed to be suffering from a stroke or bleed. Will continue per POC tomorrow.
--- NOTE | 2019-08-14 13:37 | PCOTNOTE ---
Patient unable to be seen for OT, going down for MRI testing. Will continue plan of care tomorrow, 08/15/2019.
--- NOTE | 2019-08-14 15:40 | WPDNEURCNPN ---
Assessment and Plan Assessment and plan (1) Embolic stroke: Code(s): I63.9 - Cerebral infarction, unspecified Status: Acute (2) Status post craniotomy: Code(s): Z98.890 - Other specified postprocedural states Status: Acute (3) Atrial fibrillation: Code(s): I48.91 - Unspecified atrial fibrillation Status: Acute (4) CVA (cerebral vascular accident): Code(s): I63.9 - Cerebral infarction, unspecified Status: Acute (5) Cardiomyopathy: Code(s): I42.9 - Cardiomyopathy, unspecified Status: Acute (6) Mitral regurgitation: Code(s): I34.0 - Nonrheumatic mitral (valve) insufficiency Status: Acute (7) Congestive heart failure: Qualifiers: Heart failure type: combined systolic and diastolic Code(s): I50.9 - Heart failure, unspecified Status: Acute (8) DVT prophylaxis: Code(s): Z29.9 - Encounter for prophylactic measures, unspecified Status: Acute (9) Dietary counseling and surveillance: Code(s): Z71.3 - Dietary counseling and surveillance Status: Acute (10) STEMI (ST elevation myocardial infarction): Qualifiers: Involved coronary artery: left circumflex coronary artery Qualified Code(s): I21.21 - ST elevation (STEMI) myocardial infarction involving left circumflex coronary artery Code(s): I21.3 - ST elevation (STEMI) myocardial infarction of unspecified site Status: Acute (11) Cardiogenic shock: Code(s): R57.0 - Cardiogenic shock Status: Acute (12) History of cardiac arrest: Code(s): Z86.74 - Personal history of sudden cardiac arrest Status: Acute (13) Acute coronary syndrome: Code(s): I24.9 - Acute ischemic heart disease, unspecified Status: Acute (14) Acute kidney injury superimposed on chronic kidney disease: Code(s): N17.9 - Acute kidney failure, unspecified; N18.9 - Chronic kidney disease, unspecified Status: Acute (15) Hyperlipidemia: Qualifiers: Hyperlipidemia type: unspecified Qualified Code(s): E78.5 - Hyperlipidemia, unspecified Code(s): E78.5 - Hyperlipidemia, unspecified Status: Acute (16) Hypertension: Qualifiers: Hypertension type: essential hypertension Qualified Code(s): I10 - Essential (primary) hypertension Code(s): I10 - Essential (primary) hypertension Status: Acute (17) CAD (coronary artery disease): Qualifiers: Coronary Disease-Associated Artery/Lesion type: [place] artery [place] vs. transplanted heart: [place] heart Associated angina: with unstable angina Qualified Code(s): I25.110 - Atherosclerotic heart disease of [place] coronary artery with unstable angina pectoris Code(s): I25.10 - Atherosclerotic heart disease of [place] coronary artery without angina pectoris Status: Acute Additional Plan based on the clinical history and immediate past history the patient is status to even considers a tPA will be a poor choice and initiating the anticoagulation should also be delayed for at least 4 to 5 days in the meantime the present management needs to be continued I discussed briefly with the cardiac nurse Nandini and felt strongly that any anticoagulation and/or tPA should not be a consideration at this point and I asked her to be in touch with the central office mechanic in that regard as for the blood pressure is concerned we do not have to treat if her blood pressure goes up which is presently is doing fairly well I will be happy for systolic is less than 190 and diastolic is 100 or below at least for the next few days or so Consult date: 08/14/19 Time Seen: 15:15 HPI: Jennifer Melendez is a 78 year old female Home I examined at this afternoon roughly about 3:15 p.m. because of the finding of focal neurological deficit which prompted initial CT scan which revealed old strokes however the brain MRI shows acute small scattered left occipital lobe infarc
--- NOTE | 2019-08-14 15:57 | PC.NURSE ---
evaluated patient on 08/14/2019 at 1140. Notified me of patient'sz
--- NOTE | 2019-08-14 16:20 | PC.NURSE ---
evaluated patient at 1140 on 08/14/2019 and I was then notified of Patient's eyes deviating to the right side and increased confusion. Assessed patient further and noted Left Sided Facial Drooping, Left Sided Upper Extremity Weakness, Left Sided Lower Extremity Weakness. 1147- notified of Neurological findings. STAT CT Scan ordered. 1210-CT Scan in Progress 1225- notifed of CT Results and instructed me to notify since he was in the facility. 1317-MRI ordered by 1509-Dr. Kumari and were both notified of MRI Results and went to assess the patient. 1545-Called for family's requests for test results. Provided physician with family's contact information at this time. 1600- present in unit and notified of family's concern and contact information. contacted patient's daughter at this time. Waiting on any further orders at this time.
--- NOTE | 2019-08-14 16:28 | PC.NURSE ---
Contacted regarding patient's condition and plan of care. Informed physician that ordered an MRA of the Carotid w/o Contrast and an MRA of the Brain w/o Contrast. Instructed to keep patient at the IMU level of care.
[2019-08-14] MEDS: SODIUM CHLORIDE 0.9% IV 1,000 ML 50 ML IV CONT (17:22)
[2019-08-14 17:50] LABS: Chloride Rand Ur 22 mmol/L (32-290); Chloride/Creatinine Rand Ur 29 (38-318); Creatinine Random Urine 75 mg/dL (20-275)
--- NOTE | 2019-08-14 17:59 | PC.NURSE ---
1745 Patient's bed alarm going off. Entered room and patient turning to her side. Patient states that she is dizzy at this time. No other changes to neuro status. Dr. Kumari notified of dizziness in person at 1755. Dr. Kumari stated dizziness is to be expected. Will continue to monitor patient.
--- NOTE | 2019-08-14 21:22 | PC.NURSE ---
Pt has medication due most importantly Brillenta. I tried to see if she could do small sips and she can suck it up the straw but coughs. I notified Dr. Gibson that I could not give PO meds
[2019-08-15] VITALS (17 sets, daily range): BP systolic 121–153; BP diastolic 70–105; PULSE 60–98; RESP 18–26; TEMP 36.1–36.6; O2SAT 96–100
--- NOTE | 2019-08-15 00:01 | PC.NURSE ---
At the 2300 assess pt was very asleep. She grimaces with sternal rub and eyes are reactive but will not follow commands to check for facial or industrial hire sales assistant changes. Dr. Gibson came to check her so that she was familiar with her. She was ok with her responses being like this as long as her eyes don't deviate and she still responds to stimuli. Will continue to monitor.
[2019-08-15 04:33] LABS: Basophils Percent Auto 0.1 % (0.2-1.2); Hematocrit 30.7 % (37.0-47.0); Hemoglobin 9.2 g/dL (12.0-15.0); Immature Granulocyte Absolute 0.65 K/mm3 (0.00-0.031); Immature Granulocyte Percent A 3.1 % (0-0.5); Lymphocytes Absolute Auto 0.42 K/mm3 (0.9-3.2); Mean Corpuscular Hemoglobin 26.8 pg (26-34); Mean Corpuscular Volume 89.5 fl (80-100); Mean Platelet Volume 10.1 fl (7.4-10.4); Monocytes Absolute Auto 1.5 K/mm3 (0.1-0.6); Monocytes Percent Auto 7.1 % (2.6-8.5); Neutrophils Absolute Auto 18.1 K/mm3 (1.3-6.7); Neutrophils Percent Auto 87.7 % (45.5-73.1); Nucleated Red Blood Cells Absolute Auto 0.1 K/mm3 (0.0-0.012); Nucleated Red Blood Cells Perc 0.5 % (0.0-0.2); Platelet Count Result 224 k/mm3 (150-375); Red Blood Count 3.43 M/mm3 (4.2-5.4); Red Cell Distribution Width 17.2 % (11.5-14.5); White Blood Count 20.7 K/mm3 (4.5-10.0)
[2019-08-15 05:18] LABS: Albumin Level 3.4 g/dL (3.5-5.1); Alkaline Phosphatase 98 U/L (38-126); Bilirubin,Total 1.2 mg/dL (0.2-1.3); Blood Urea Nitrogen 97 mg/dL (7-17); Calcium 9.5 mg/dL (8.4-10.2); Carbon Dioxide 18 mmol/L (22-30); Chloride 97 mmol/L (98-107); Estimated Glomerular Filt Rate 12; Glucose 83 mg/dL (65-105); Potassium 5.2 mmol/L (3.4-5.0); Sodium 137 mmol/L (137-145)
[2019-08-15 05:53] LABS: Alanine Aminotransferase 2387 U/L (4-35); Aspartate Amino Transferase 4923 U/L (14-36)
--- NOTE | 2019-08-15 09:12 | PCSTNOTE ---
Please refer to the Bedside Swallow Evaluation in the EMR.
--- NOTE | 2019-08-15 11:17 | PM.PNCARD ---
Progress Note: A&P Additional Plan 78-year-old female who unfortunately has now suffered a right parietal CVA while still in the hospital recovering from extensive [place] 1 week ago. Certainly may have been a cardioembolic events since she had an episode of atrial fib on telemetry prior to the neurological event although that would be very unusual for a LA thrombus to develop that quickly. Fortunately her swallowing study today shows that she can be given her medications and the nursing staff will be resuming her medications this morning. She did miss 1 dose of Brilinta last night. Family is going to interact with the patient on video face time visit so they can be appraised of her current condition Garrick Figueroa MD [facility] Subjective Date/time seen: Date of service: 08/15/19 11:17 Interval history: Follow-up visit in 78-year-old white female with ischemic heart disease acute presentation 1 week ago with a [place] in abrupt occlusion of the proximal circumflex. 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 Acute phase of the event was complicated by CHF. Unfortunately yesterday the patient had in acute right parietal CVA with left hemiplegia. Swallowing study today apparently indicated inability to swallow her medications crushed in applesauce. Patient is arousable and responsive than answers questions appropriately Exam Const: General: comfortable and no acute distress Other: Elderly frail white female in bed sleeping upon arousing appears to be comfortable and offers no significant complaints. Patient does not appear to be aware of for understand that she has had a CVA yesterday HENMT: Mouth: Yes moist mucous membranes Eyes: Sclera: sclerae normal Pupils: Equal, round and reactive pupils present Neck: Neck: no JVD Thyroid: thyroid normal Resp: Effort & Inspection: normal respiratory effort Auscultation: clear to auscultation bilaterally Cardio: Rate: regular rate Rhythm: regular rhythm Other: Soft systolic ejection murmur at the base that does not radiate GI: Auscultation: normal bowel sounds Skin: General skin exam: normal color Neuro: Other: Mentation is appropriate in slow patient continues to have a left hemiplegia Extrem: General: normal to inspection Objective Data Vital Signs Vital Signs: Vital Signs - 24 hr 08/14/19 11:59 08/14/19 12:00 08/14/19 14:30 Temperature 36.1 C L Pulse Rate 69 68 69 Respiratory Rate 26 H Blood Pressure 136/68 Pulse Oximetry 99 08/14/19 16:00 08/14/19 18:00 08/14/19 19:34 Temperature 36.1 C L Pulse Rate 69 71 Respiratory Rate 28 H Blood Pressure 141/72 H Pulse Oximetry 100 96 08/14/19 19:41 08/14/19 20:00 08/14/19 21:36 Temperature 36.6 C Pulse Rate 75 76 68 Respiratory Rate 20 Blood Pressure 146/99 H Pulse Oximetry 93 08/14/19 22:00 08/14/19 23:40 08/15/19 00:00 Temperature 36.6 C Pulse Rate 61 64 66 Respiratory Rate 20 Blood Pressure 106/55 L Pulse Oximetry 96 08/15/19 02:00 08/15/19 04:00 08/15/19 06:00 Temperature 36.6 C Pulse Rate 69 69 66 Respiratory Rate 20 Blood Pressure 121/80 Pulse Oximetry 98 08/15/19 08:00 08/15/19 09:56 Temperature 36.4 C L Pulse Rate 72 Respiratory Rate 22 H Blood Pressure 153/84 H Pulse Oximetry 100 98 Intake/Output Intake/Output: Intake & Output 08/12/19 08/13/19 08/14/19 08/15/19 23:59 23:59 23:59 23:59 Intake Total 933 740 300 Output Total 1475 1100 250 50 Balance -542 -360 50 -50 Meds/Results Medications: Active Medications Generic Name Dose Route Start Last Admin Trade Name Freq PRN Reason Stop Dose Admin Aspirin 81 mg 08/09/19 09:00 08/14/19 08:33 Aspirin Ec PO 81 mg QAM [facility] Administration Atorvastatin Calcium 80 mg 08/09/19 09:00 Lipitor PO DAILY [facility] Enoxaparin Sodium 30 mg 08/10/19 11:35 08/14/19
[2019-08-15] MEDS: METOPROLOL TARTRATE 25 MG TABLET 75 MG PO (11:33)
[2019-08-15] MEDS: ASPIRIN 81 MG ENTERIC TABLET PO (11:33)
[2019-08-15] MEDS: TICAGRELOR 90 MG TABLET PO ×2 (11:34→20:17)
[2019-08-15] MEDS: FAMOTIDINE 20 MG/2 ML VIAL IV PUSH (11:47)
[2019-08-15] MEDS: ENOXAPARIN 30 MG/0.3 ML SYRINGE SUB-Q (11:47)
--- NOTE | 2019-08-15 11:56 | WPDNEURORHBP ---
Subjective Date/time seen: 08/15/19 11:56 Interval history: this 78-year-old woman was reexamined earlier today her background history is having had cardiac arrest cardiogenic shock acute kidney injury and also about of atrial fibrillation followed by the next day change in her overall neurological state particularly the mental status was found to have bihemispheric stroke 1 scattered 1 in the left occipital area and also right frontal area superimposed on the chronic which I would suspect encephalomalacia related to craniotomy performed over 20 years ago the patient neurological status has improved to a point that the she is more alert able to follow commands and the past the modified barium swallow I discussed the case with attending physician hospitalist and because of the kidney injury multiple issues she felt that the woman probably needs a comfort measures which will all depend upon if the daughter with whom I spoke with her yesterday is to decide the brain MRA does not reveal any lesion which could be amenable to thrombectomy she does have a decreased flow in the left posterior cerebral artery branch which most likely is due to cardioembolic rather than otherwise as the patient has evidence of bihemispheric stroke rather than 1 hemisphere and even those strokes in the left occipital area are scattered The patient denies any headache nausea vomiting chest pain or shortness of breath Review of Systems Review of Systems: All systems reviewed & are unremarkable except as noted in HPI and below Functional Status Ambulation Ability Ambulation Assistive Devices: Walker, Wheeled Exam Const: General: comfortable and no acute distress HENMT: General nose exam: Normal nares present Mouth: Yes moist mucous membranes Eyes: General: appearance normal, both eyes and all related structures Other: her gaze preference as almost gone she does have a right-sided visual field defect and I do not see lateralizing weakness of left side and in fact is definitely much better and both sides and equal to move including the lower extremities Neck: Neck: supple and no JVD Resp: Effort & Inspection: normal respiratory effort Auscultation: clear to auscultation bilaterally Cardio: Rate: regular rate Rhythm: regular rhythm GI: GI Palp: Yes Soft to palpation Auscultation: normal bowel sounds Skin: General skin exam: normal color and no rashes or lesions noted Neuro: Other: patient is awake and alert much more than yesterday not as groggy or lethargy has passed modified barium swallow I do not find lateralizing focal motor weakness she does have a right-sided visual field defect and gaze preference she had has resolved and in fact left-sided weakness is not even appreciable at this time negative Babinski sign Extrem: General: normal to inspection Psych: Other: patient clearly does have underlying dementia and it is difficult to assess after having had bihemispheric stroke what was her baseline however the patient's daughter told me that she did have beginning of Alzheimer's dementia Objective Data Vital Signs Vital Signs: Vital Signs - 24 hr 08/14/19 11:59 08/14/19 12:00 08/14/19 14:30 Temperature 36.1 C L Pulse Rate 69 68 69 Respiratory Rate 26 H Blood Pressure 136/68 Pulse Oximetry 99 08/14/19 16:00 08/14/19 18:00 08/14/19 19:34 Temperature 36.1 C L Pulse Rate 69 71 Respiratory Rate 28 H Blood Pressure 141/72 H Pulse Oximetry 100 96 08/14/19 19:41 08/14/19 20:00 08/14/19 21:36 Temperature 36.6 C Pulse Rate 75 76 68 Respiratory Rate 20 Blood Pressure 146/99 H Pulse Oximetry 93 08/14/19 22:00 08/14/19 23:40 08/15/19 00:00 Temperature 36.6 C Pulse Rate 61 64 66 Respiratory Rate 20 Blood Pressure 106/55 L Pulse Oximetry 96 08/15/19 02:00 08/15/19 04:00 08/15/19 06:00 Temperature 36.6 C Pulse Rate 69 69 66 Respiratory Rate 20 Blood Pressure 121/80 Pulse Oximetry 98
--- NOTE | 2019-08-15 13:36 | ECG_ITS ---
Measurements Intervals [place] Rate: 59 P: 61 MI: 169 QRS: 54 QRSD: 116 T: -29 QT: 468 QTc: 466 Interpretive Statements SINUS BRADYCARDIA ATRIAL PREMATURE COMPLEX INTRAVENTRICULAR CONDUCTION DELAY INFERIOR INFARCT, PROBABLY RECENT BORDERLINE ST-T WAVE ABNORMALITY- ANTEROLATERAL LEADS ABNORMAL ECG Electronically Signed On 08-15-2019 15:50:13 CDT by Joseluis Barahona D.O.
--- NOTE | 2019-08-15 15:43 | PM.IMPN ---
Progress Note: A&P Assessment and Plan (1) Acute respiratory failure: Qualifiers: Respiratory failure complication: hypoxia Qualified Code(s): J96.01 - Acute respiratory failure with hypoxia Code(s): J96.00 - Acute respiratory failure, unspecified whether with hypoxia or hypercapnia Status: Acute Assessment and Plan: Pt was intubated treated for pneumonia. covid negative, pneumonia less likley on recent cxr stop iv abx (2) Ventricular tachycardia: Code(s): I47.2 - Ventricular tachycardia Status: Acute Assessment and Plan: Pateint developed VTach while in the ER requiring shock x 1. [place] related to the STEMI. followed by cardiology (3) Acute coronary syndrome: Code(s): I24.9 - Acute ischemic heart disease, unspecified Status: Acute Assessment and Plan: Patient developed symptoms a few days prior to admission. She presented with elevated troponins to 2.5 and EKG changes concerning for ST elevation [place]. Patient developed ventricular tachycardia requiring shock x1. She was taken to the metallurgical lab technician where she was found to have acute thrombosis of the left circumflex that was stented successfully. Currently patient is stable on mechanical ventilation. She is on Lopressor, aspirin and Brilinta. Seen by cardiology (4) STEMI (ST elevation myocardial infarction): Qualifiers: Involved coronary artery: left circumflex coronary artery Qualified Code(s): I21.21 - ST elevation (STEMI) myocardial infarction involving left circumflex coronary artery Code(s): I21.3 - ST elevation (STEMI) myocardial infarction of unspecified site Status: Acute Assessment and Plan: As above. (5) Pneumonia: Qualifiers: Pneumonia type: due to unspecified organism Laterality: bilateral Lung location: lower lobe of lung Qualified Code(s): J18.9 - Pneumonia, unspecified organism Code(s): J18.9 - Pneumonia, unspecified organism Status: Acute Assessment and Plan: Possible PNA on presentation. CXR again today showing bilateral pleural effusion and bibasilar airspace disease without significant improvement. Currently on Rocephin and Azithromycin. Pt is on Rocephin azithromycin (6) Suspected COVID-19 virus infection: Code(s): R68.89 - Other general symptoms and signs Status: Acute Assessment and Plan: COVID test has returned negative. (7) Elevated transaminase level: Code(s): R74.0 - Nonspecific elevation of levels of transaminase and lactic acid dehydrogenase [LDH] Status: Acute Assessment and Plan: AST and ALT elevated on admission and worse yesterday but better today. Most likely related to hepatic congestion related to above. Patient not on statin therapy at home. Statin therapy held until liver tests improved. Bilirubin and alk-phos levels remain normal. Small amount of ascites noted but no evidence of cirrhosis by ultrasound. Continue to monitor lfts (8) Acute kidney injury superimposed on chronic kidney disease: Code(s): N17.9 - Acute kidney failure, unspecified; N18.9 - Chronic kidney disease, unspecified Status: Acute Assessment and Plan: Creatinine is 3.0 on admission. She does see a home health provider but unclear what is her baseline creatinine level. Continue to monitor creat (9) Hyperkalemia: Code(s): E87.5 - Hyperkalemia Status: Acute Assessment and Plan: Resolved (10) Hyperlipidemia: Qualifiers: Hyperlipidemia type: unspecified Qualified Code(s): E78.5 - Hyperlipidemia, unspecified Code(s): E78.5 - Hyperlipidemia, unspecified Status: Acute Assessment and Plan: As above. (11) Hypertension: Qualifiers: Hypertension type: essential hypertension Qualified Code(s): I10 - Essential (primary) hypertension Code(s): I10 - Essential (primary) hypertension
[2019-08-15 16:12] LABS: Albumin Level 3.5 g/dL (3.5-5.1); Alkaline Phosphatase 106 U/L (38-126); Bilirubin,Total 1.6 mg/dL (0.2-1.3); Blood Urea Nitrogen 101 mg/dL (7-17); Calcium 9.1 mg/dL (8.4-10.2); Carbon Dioxide 14 mmol/L (22-30); Chloride 99 mmol/L (98-107); Glucose 40 mg/dL (65-105); Potassium 5.7 mmol/L (3.4-5.0); Sodium 138 mmol/L (137-145)
[2019-08-15 16:15] LABS: Estimated Glomerular Filt Rate 10
[2019-08-15] MEDS: DEXTROSE 50% 25 GM/50 ML SYRINGE IV PUSH (16:20)
[2019-08-15 16:23] LABS: Glucose Point of Care 39 (65-105)
[2019-08-15 16:30] LABS: Alanine Aminotransferase 2637 U/L (4-35)
[2019-08-15 16:54] LABS: Aspartate Amino Transferase 4180 U/L (14-36)
[2019-08-15] MEDS: DEXTROSE 5%/0.45% SOD CHL 1,000 ML 50 ML IV CONT (17:24)
[2019-08-15 18:01] LABS: Glucose Point of Care 126 (65-105)
--- NOTE | 2019-08-15 18:12 | P.PNNP_ITS ---
Progress Note: A&P Assessment and Plan (1) Acute kidney injury superimposed on chronic kidney disease: Code(s): N17.9 - Acute kidney failure, unspecified; N18.9 - Chronic kidney disease, unspecified Status: Acute Assessment and Plan: * multifactorial etiology: - STEMI - prior cardiac insult CAREER SPECIALIST - concurrent use of WES-I CAREER SPECIALIST - pre-renal factors (low urine sodium) - contrast/dye (but creatinine already elevated pre-contrast exposure) * Urine electrolytes show pre renal azotemia. * And COVID studies are negative * C3 and C4 are normal. Other serology is pending * Her creatinine started off at three and had fallen to about 2.5. * In the last 2 days her creatinine has risen to around 4. * At the same time her liver enzymes have risen dramatically. 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 * Surface echocardiogram does not show any clot or source of emboli. * The pre renal picture plus rising liver enzymes plus her mitral regurg, tricuspid regurg, and pulmonary hypertension all sound like this is heart failure leading to congestive hepatopathy and pre renal azotemia. There is nothing we can do for the heart. I discussed with Dr. Troy. I suspect this is cardiorenal syndrome. * Another possibility would be that she has embolic damage to the liver and the kidneys. * The patient cannot be anticoagulated per Neurology because of the possibility of transformation to hemorrhagic stroke. * At this point I would suggest supportive care for the kidneys. I do not think she is a candidate for dialysis because of her other comorbidities, especially the strokes. At her age even if healthy dialysis is very difficult for patient's. With her heart disease and arrhythmias she would be at high risk for hypotension and further arrhythmias from electrolyte changes which would make dialysis very risky. * I talked with the family at length. Sindy and Mr. Lee were both on the phone on speaker. I explained the above to the family and answered questions that they had. They wish to continue whatever we can do. I asked them about aggressiveness of care, for instance CPR and they are not ready to make that decision yet. (2) Hyperkalemia: Code(s): E87.5 - Hyperkalemia Status: Acute Assessment and Plan: * Resolved (3) History of cardiac arrest: Code(s): Z86.74 - Personal history of sudden cardiac arrest Status: Acute Assessment and Plan: * due to STEMI/ACS (see #5) * Cardiology following (4) Acute respiratory failure: Qualifiers: Respiratory failure complication: hypoxia Qualified Code(s): J96.01 - Acute respiratory failure with hypoxia Code(s): J96.00 - Acute respiratory failure, unspecified whether with hypoxia or hypercapnia Status: Acute Assessment and Plan: * Resolved and breathing comfortably. * She is on no oxygen. (5) CAD (coronary artery disease): Qualifiers: Coronary Disease-Associated Artery/Lesion type: [place] artery [place] vs. transplanted heart: [place] heart Associated angina: with unstable angina Qualified Code(s): I25.110 - Atherosclerotic heart disease of [place] coronary artery with unstable angina pectoris Code(s): I25.10 - Atherosclerotic heart disease of [place] coronary artery without angina pectoris Status: Acute Assessment and Plan: * s/p cardiac catheterization with PTCA/PCI with ÁNGELA x 1 to mid circumflex * Cardiology following * maximizing medical therapy * She has valvular dise
--- NOTE | 2019-08-15 18:12 | PM.PNNEP ---
Progress Note: A&P Assessment and Plan (1) Acute kidney injury superimposed on chronic kidney disease: Code(s): N17.9 - Acute kidney failure, unspecified; N18.9 - Chronic kidney disease, unspecified Status: Acute Assessment and Plan: multifactorial etiology: - STEMI - prior cardiac insult RN FIRST ASSIST - concurrent use of WES-I RN FIRST ASSIST - pre-renal factors (low urine sodium) - contrast/dye (but creatinine already elevated pre-contrast exposure) Urine electrolytes show pre renal azotemia. And COVID studies are negative C3 and C4 are normal. Other serology is pending Her creatinine started off at three and had fallen to about 2.5. In the last 2 days her creatinine has risen to around 4. At the same time her liver enzymes have risen dramatically. 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 Surface echocardiogram does not show any clot or source of emboli. The pre renal picture plus rising liver enzymes plus her mitral regurg, tricuspid regurg, and pulmonary hypertension all sound like this is heart failure leading to congestive hepatopathy and pre renal azotemia. There is nothing we can do for the heart. I discussed with Dr. Troy. I suspect this is cardiorenal syndrome. Another possibility would be that she has embolic damage to the liver and the kidneys. The patient cannot be anticoagulated per Neurology because of the possibility of transformation to hemorrhagic stroke. At this point I would suggest supportive care for the kidneys. I do not think she is a candidate for dialysis because of her other comorbidities, especially the strokes. At her age even if healthy dialysis is very difficult for patient's. With her heart disease and arrhythmias she would be at high risk for hypotension and further arrhythmias from electrolyte changes which would make dialysis very risky. I talked with the family at length. Sindy and Mr. Lee were both on the phone on speaker. I explained the above to the family and answered questions that they had. They wish to continue whatever we can do. I asked them about aggressiveness of care, for instance CPR and they are not ready to make that decision yet. (2) Hyperkalemia: Code(s): E87.5 - Hyperkalemia Status: Acute Assessment and Plan: Resolved (3) History of cardiac arrest: Code(s): Z86.74 - Personal history of sudden cardiac arrest Status: Acute Assessment and Plan: due to STEMI/ACS (see #5) Cardiology following (4) Acute respiratory failure: Qualifiers: Respiratory failure complication: hypoxia Qualified Code(s): J96.01 - Acute respiratory failure with hypoxia Code(s): J96.00 - Acute respiratory failure, unspecified whether with hypoxia or hypercapnia Status: Acute Assessment and Plan: Resolved and breathing comfortably. She is on no oxygen. (5) CAD (coronary artery disease): Qualifiers: Coronary Disease-Associated Artery/Lesion type: [place] artery [place] vs. transplanted heart: [place] heart Associated angina: with unstable angina Qualified Code(s): I25.110 - Atherosclerotic heart disease of [place] coronary artery with unstable angina pectoris Code(s): I25.10 - Atherosclerotic heart disease of [place] coronary artery without angina pectoris Status: Acute Assessment and Plan: s/p cardiac catheterization with PTCA/PCI with ÁNGELA x 1 to mid circumflex Cardiology following maximizing medical therapy She has valvular disease as well as pulmonary hypertension which complicate the cardiac situation. Additional Plan Long discussion with Dr. Troy, Dr Saunders, and with family. 40 minutes spent in all aside from clinical activity Subjective Date/time seen: 08/15/19 18:12 Interval history: Events noted. Patient is unresponsive right now. Sitter is in the room. She has had periods where she
[2019-08-16] VITALS (17 sets, daily range): BP systolic 125–167; BP diastolic 75–90; PULSE 61–71; RESP 18–24; TEMP 35.8–36.6; O2SAT 91–99
[2019-08-16 04:48] LABS: Hematocrit 32.8 % (37.0-47.0); Hemoglobin 9.8 g/dL (12.0-15.0); Mean Corpuscular HGB Conc 29.9 g/dl (32-36); Mean Corpuscular Volume 90.4 fl (80-100); Mean Platelet Volume 11.1 fl (7.4-10.4); Platelet Count Result 162 k/mm3 (150-375); Red Blood Count 3.63 M/mm3 (4.2-5.4); Red Cell Distribution Width 17.1 % (11.5-14.5); White Blood Count 16.1 K/mm3 (4.5-10.0)
[2019-08-16 04:59] LABS: Ammonia < 9 umol/L (9-30)
[2019-08-16 05:36] LABS: Albumin Level 3.4 g/dL (3.5-5.1); Alkaline Phosphatase 107 U/L (38-126); Bilirubin Direct 0.1 mg/dL (0-0.3); Bilirubin,Total 1.5 mg/dL (0.2-1.3); Blood Urea Nitrogen 113 mg/dL (7-17); Calcium 8.5 mg/dL (8.4-10.2); Carbon Dioxide 16 mmol/L (22-30); Chloride 99 mmol/L (98-107); Estimated Glomerular Filt Rate 10; Glucose 103 mg/dL (65-105); Phosphorus 9.2 mg/dL (2.5-4.5); Potassium 4.9 mmol/L (3.4-5.0); Sodium 138 mmol/L (137-145)
[2019-08-16 07:11] LABS: Alanine Aminotransferase 2649 U/L (4-35); Aspartate Amino Transferase 3031 U/L (14-36)
--- NOTE | 2019-08-16 08:38 | P.PNNP_ITS ---
Progress Note: A&P Assessment and Plan (1) Acute kidney injury superimposed on chronic kidney disease: Code(s): N17.9 - Acute kidney failure, unspecified; N18.9 - Chronic kidney disease, unspecified Status: Acute Assessment and Plan: * multifactorial etiology: - STEMI - prior cardiac insult HEALTH SCIENCES DEAN - concurrent use of WES-I HEALTH SCIENCES DEAN - pre-renal factors (low urine sodium) - contrast/dye (but creatinine already elevated pre-contrast exposure) * Urine electrolytes show pre renal azotemia. * COVID studies are negative * C3 and C4 are normal. Other serology is pending * Renal ultrasound shows a small left kidney. No acute changes. * Creatinine has stabilized at 4.2. * Etiology of the renal disease is still unclear. * She probably has an element of ATN from the cardiac arrest. * I think that the more recent changes are from pre renal azotemia. * The patient has a poorly functioning heart which is probably why she is pre renal. (2) Hyperkalemia: Code(s): E87.5 - Hyperkalemia Status: Acute Assessment and Plan: * Resolved (3) History of cardiac arrest: Code(s): Z86.74 - Personal history of sudden cardiac arrest Status: Acute Assessment and Plan: * due to STEMI/ACS (see #5) * Cardiology following (4) Acute respiratory failure: Qualifiers: Respiratory failure complication: hypoxia Qualified Code(s): J96.01 - Acute respiratory failure with hypoxia Code(s): J96.00 - Acute respiratory failure, unspecified whether with hypoxia or hypercapnia Status: Acute Assessment and Plan: * Resolved and breathing comfortably. * She is on no oxygen. (5) CAD (coronary artery disease): Qualifiers: Coronary Disease-Associated Artery/Lesion type: [place] artery [place] vs. transplanted heart: [place] heart Associated angina: with unstable angina Qualified Code(s): I25.110 - Atherosclerotic heart disease of [place] coronary artery with unstable angina pectoris Code(s): I25.10 - Atherosclerotic heart disease of [place] coronary artery without angina pectoris Status: Acute Assessment and Plan: * s/p cardiac catheterization with PTCA/PCI with ÁNGELA x 1 to mid circumflex * Cardiology following * maximizing medical therapy * She has valvular disease as well as pulmonary hypertension which complicate the cardiac situation. (6) Atrial fibrillation: Code(s): I48.91 - Unspecified atrial fibrillation Status: Acute Assessment and Plan: The patient had a few episodes of atrial fibrillation. She has been in sinus rhythm overnight. (7) Elevated transaminase level: Code(s): R74.0 - Nonspecific elevation of levels of transaminase and lactic acid dehydrogenase [LDH] Status: Acute Assessment and Plan: Very high transaminases. Consider congestive hepatopathy or possibly embolic disease. (8) CVA (cerebral vascular accident): Code(s): I63.9 - Cerebral infarction, unspecified Status: Acute Assessment and Plan: Neurology is on board. The patient has had multiple small strokes in the occipital and frontal regions. This seems like embolic disease. Surface echocardiogram was negative. Neurology says unsafe to anticoagulate for 4 days. Subjective Date/time seen: 08/16/19 08:38 Interval history: Patient had a calmer night. No more cardiac issues. Still in sinus rhythm. Sitter says the patient was calm all night. Patient wakens a little bit, opens her eyes, an
--- NOTE | 2019-08-16 08:38 | PM.PNNEP ---
Progress Note: A&P Assessment and Plan (1) Acute kidney injury superimposed on chronic kidney disease: Code(s): N17.9 - Acute kidney failure, unspecified; N18.9 - Chronic kidney disease, unspecified Status: Acute Assessment and Plan: multifactorial etiology: - STEMI - prior cardiac insult DIET CONSULTANT - concurrent use of WES-I DIET CONSULTANT - pre-renal factors (low urine sodium) - contrast/dye (but creatinine already elevated pre-contrast exposure) Urine electrolytes show pre renal azotemia. COVID studies are negative C3 and C4 are normal. Other serology is pending Renal ultrasound shows a small left kidney. No acute changes. Creatinine has stabilized at 4.2. Etiology of the renal disease is still unclear. She probably has an element of ATN from the cardiac arrest. I think that the more recent changes are from pre renal azotemia. The patient has a poorly functioning heart which is probably why she is pre renal. (2) Hyperkalemia: Code(s): E87.5 - Hyperkalemia Status: Acute Assessment and Plan: Resolved (3) History of cardiac arrest: Code(s): Z86.74 - Personal history of sudden cardiac arrest Status: Acute Assessment and Plan: due to STEMI/ACS (see #5) Cardiology following (4) Acute respiratory failure: Qualifiers: Respiratory failure complication: hypoxia Qualified Code(s): J96.01 - Acute respiratory failure with hypoxia Code(s): J96.00 - Acute respiratory failure, unspecified whether with hypoxia or hypercapnia Status: Acute Assessment and Plan: Resolved and breathing comfortably. She is on no oxygen. (5) CAD (coronary artery disease): Qualifiers: Coronary Disease-Associated Artery/Lesion type: [place] artery [place] vs. transplanted heart: [place] heart Associated angina: with unstable angina Qualified Code(s): I25.110 - Atherosclerotic heart disease of [place] coronary artery with unstable angina pectoris Code(s): I25.10 - Atherosclerotic heart disease of [place] coronary artery without angina pectoris Status: Acute Assessment and Plan: s/p cardiac catheterization with PTCA/PCI with ÁNGELA x 1 to mid circumflex Cardiology following maximizing medical therapy She has valvular disease as well as pulmonary hypertension which complicate the cardiac situation. (6) Atrial fibrillation: Code(s): I48.91 - Unspecified atrial fibrillation Status: Acute Assessment and Plan: The patient had a few episodes of atrial fibrillation. She has been in sinus rhythm overnight. (7) Elevated transaminase level: Code(s): R74.0 - Nonspecific elevation of levels of transaminase and lactic acid dehydrogenase [LDH] Status: Acute Assessment and Plan: Very high transaminases. Consider congestive hepatopathy or possibly embolic disease. (8) CVA (cerebral vascular accident): Code(s): I63.9 - Cerebral infarction, unspecified Status: Acute Assessment and Plan: Neurology is on board. The patient has had multiple small strokes in the occipital and frontal regions. This seems like embolic disease. Surface echocardiogram was negative. Neurology says unsafe to anticoagulate for 4 days. Subjective Date/time seen: 08/16/19 08:38 Interval history: Patient had a calmer night. No more cardiac issues. Still in sinus rhythm. Sitter says the patient was calm all night. Patient wakens a little bit, opens her eyes, and regards examiner a little bit, however does not interact any more than that. She looks comfortable without shortness of breath. Review of Systems Cardiovascular: Cardiovascular: Reports no additional cardiovascular complaints Respiratory: Respiratory: Reports no additional respiratory complaints Gastrointestinal: Gastrointestinal: Reports no additional gastrointestinal complaints Genitourinary: Genitourinary: Reports no
[2019-08-16] MEDS: ASPIRIN 81 MG ENTERIC TABLET PO (08:41)
[2019-08-16] MEDS: ENOXAPARIN 30 MG/0.3 ML SYRINGE SUB-Q (08:41)
[2019-08-16] MEDS: TICAGRELOR 90 MG TABLET PO ×2 (08:41→20:02)
--- NOTE | 2019-08-16 09:11 | PM.IMPN ---
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 MRI brain on 08/14/2019 with acute small scattered left occipital lobe infarctions and acute small to moderate sized right frontal lobe infarction. Brain/neck MRA on 08/15/2019 with 0% stenosis of left and right carotid folds, suggestive sluggish flow to the left posterior cerebral artery, regions of laminar necrosis consistent with prior infarct at the bilateral occipital lobes and along the right frontal lobe gyrus and small region of encephalomalacia in the right cerebellar hemisphere underlying prior right suboccipital craniectomy. Appreciate help from Neurology. Patient remains full code. Multiple providers have spoken with family who wishes continue current treatment at this point. Will continue to monitor. Continue IV fluids. Able to speak with patient's daughter, Sindy, late this afternoon. also on speaker phone. Updated on patient's condition which is poor. Explained patient is having multiorgan failure at this point. We did discuss code status is patient remains full code as well as how aggressive family wishes to be with care. Possibility of comfort care/hospice was discussed. At this time, family wishes to consider options. In the meantime, patient will remain full code with current treatment. (2) Atrial fibrillation: Qualifiers: Atrial fibrillation type: paroxysmal Qualified Code(s): I48.0 - Paroxysmal atrial fibrillation Code(s): I48.91 - Unspecified atrial fibrillation Status: Acute Assessment and Plan: New onset while here. Has gone back and forth between atrial fibrillation in sinus rhythm. Currently telemetry on 08/16/2019 with sinus rhythm. Systemic anticoagulation on hold with recent embolic CVA but plan for ventral anticoagulation. Appreciate help from Cardiology. Will continue to monitor. (3) Acute kidney injury superimposed on chronic kidney disease: Code(s): N17.9 - Acute kidney failure, unspecified; N18.9 - Chronic kidney disease, unspecified Status: Acute Assessment and Plan: Appreciate help from Nephrology. Creatinine has now increased and staying at 4.20 today. Most likely multifactorial. Renal ultrasound with small left kidney but no acute changes. Continue to monitor at this point. (4) Acute coronary syndrome: Code(s): I24.9 - Acute ischemic heart disease, unspecified Status: Acute Assessment and Plan: Late presentation on admission. Cardiology consulted and appreciate input as noted above. She was taken to the cardiac catheterization lab and noted to have acute thrombosis of left circumflex which was successfully stented. Remains on ASA, Brilinta and atorvastatin. Will monitor. (5) STEMI (ST elevation myocardial infarction): Qualifiers: Involved coronary artery: left circumflex coronary artery Qualified Code(s): I21.21 - ST elevation (STEMI) myocardial infarction involving left circumflex coronary artery Code(s): I21.3 - ST elevation (STEMI) myocardial infarction of unspecified site Status: Acute Assessment and Plan: Late presentation on admission as noted above. Continue medical treatment as noted above. (6) Acute respiratory failure: Qualifiers: Respiratory failure complication: hypoxia Qualified Code(s): J96.01 - Acute respiratory failure with hypoxia Code(s): J96.00 - Acute respiratory failure
--- NOTE | 2019-08-16 09:34 | PCOTNOTE ---
Attempted to see patient this am, however upon checking with nursing, RN reported, No. She won't be able to participate. Pt not seen for this reason.
--- NOTE | 2019-08-16 09:34 | PCPTNOTE ---
Therapy held today per RN.
--- NOTE | 2019-08-16 09:57 | PCDIET ---
Nutrition Follow-Up Complete: Nutrition Diagnosis: Inadequate oral intake related to mechanical ventilation as evidenced by NPO status. Nutrition Goal: Patient to meet estimated nutritional needs. Goal not met. Patient currently NPO. Nodding head yes to all questions asked by MD this morning, but not following commands. Last recorded weight is 54 kg which is increased. Bowel Motility: BM x 4 today. Labs Reviewed: BUN (113), Cr (4.2), Alb (3.4) Meds Noted: D5/0.45NS at 50mL/hr Additional Notes: Patient had MBS yesterday with recommendation for soft and bite size diet, thin liquids. Appears no longer appropriate, given current mental status. No documented skin breakdown. Will follow closely. If unable to advance diet in the next few days and aggressive treatment is desired, will likely recommend enteral feedings. Nutrition Monitoring and Evaluation: Follow up every 3 days.
--- NOTE | 2019-08-16 10:59 | PC.NURSE ---
Spoke with daughter Sindy Spaulding, and updated her on patient's condition. Family will maintain patient's code status as a Full Code.
--- NOTE | 2019-08-16 11:58 | WPDNEUROPN ---
Progress Note: A&P Assessment and Plan (1) Status post craniotomy: Code(s): Z98.890 - Other specified postprocedural states Status: Acute (2) Embolic stroke: Code(s): I63.9 - Cerebral infarction, unspecified Status: Acute (3) Atrial fibrillation: Qualifiers: Atrial fibrillation type: paroxysmal Qualified Code(s): I48.0 - Paroxysmal atrial fibrillation Code(s): I48.91 - Unspecified atrial fibrillation Status: Acute (4) CVA (cerebral vascular accident): Qualifiers: CVA mechanism: embolism Precerebral and cerebral artery: posterior cerebral artery Laterality of affected vessel: bilateral Qualified Code(s): I63.433 - Cerebral infarction due to embolism of bilateral posterior cerebral arteries Code(s): I63.9 - Cerebral infarction, unspecified Status: Acute (5) Cardiomyopathy: Code(s): I42.9 - Cardiomyopathy, unspecified Status: Acute (6) Mitral regurgitation: Code(s): I34.0 - Nonrheumatic mitral (valve) insufficiency Status: Acute (7) Congestive heart failure: Qualifiers: Heart failure type: combined systolic and diastolic Code(s): I50.9 - Heart failure, unspecified Status: Acute (8) DVT prophylaxis: Code(s): Z29.9 - Encounter for prophylactic measures, unspecified Status: Acute (9) STEMI (ST elevation myocardial infarction): Qualifiers: Involved coronary artery: left circumflex coronary artery Qualified Code(s): I21.21 - ST elevation (STEMI) myocardial infarction involving left circumflex coronary artery Code(s): I21.3 - ST elevation (STEMI) myocardial infarction of unspecified site Status: Acute (10) Elevated transaminase level: Code(s): R74.0 - Nonspecific elevation of levels of transaminase and lactic acid dehydrogenase [LDH] Status: Acute (11) Hyperkalemia: Code(s): E87.5 - Hyperkalemia Status: Acute (12) History of cardiac arrest: Code(s): Z86.74 - Personal history of sudden cardiac arrest Status: Acute (13) Acute kidney injury superimposed on chronic kidney disease: Code(s): N17.9 - Acute kidney failure, unspecified; N18.9 - Chronic kidney disease, unspecified Status: Acute (14) Hyperlipidemia: Qualifiers: Hyperlipidemia type: unspecified Qualified Code(s): E78.5 - Hyperlipidemia, unspecified Code(s): E78.5 - Hyperlipidemia, unspecified Status: Acute (15) Hypertension: Qualifiers: Hypertension type: essential hypertension Qualified Code(s): I10 - Essential (primary) hypertension Code(s): I10 - Essential (primary) hypertension Status: Acute (16) CAD (coronary artery disease): Qualifiers: Coronary Disease-Associated Artery/Lesion type: [place] artery [place] vs. transplanted heart: [place] heart Associated angina: with unstable angina Qualified Code(s): I25.110 - Atherosclerotic heart disease of [place] coronary artery with unstable angina pectoris Code(s): I25.10 - Atherosclerotic heart disease of [place] coronary artery without angina pectoris Status: Acute Additional Plan at this point it seems like patient has has multiple organ failures appropriate measures are being taken the present management needs to be continued however still feel I wish this patient was comfort measures only however the family wants us to do everything possible and immune it comes to intubation they are willing for the same multiple physician have been involved and the notes were reviewed and agreed Review of Systems Review of Systems: All systems reviewed & are unremarkable except as noted in HPI and below Exam Const: General: uncomfortable HENMT: General nose exam: Normal nares present Mouth: Yes moist mucous membranes Eyes: Other: a roving eye moved Neck: Neck: supple and no JVD Resp: Auscultation: rales and rhonchi Cardio: Rat
[2019-08-16] MEDS: DEXTROSE 5%/0.45% SOD CHL 1,000 ML 50 ML IV CONT (12:15)
--- NOTE | 2019-08-16 13:30 | PM.PNCARD ---
Progress Note: A&P Assessment and Plan (1) CVA (cerebral vascular accident): Qualifiers: CVA mechanism: embolism Precerebral and cerebral artery: posterior cerebral artery Laterality of affected vessel: bilateral Qualified Code(s): I63.433 - Cerebral infarction due to embolism of bilateral posterior cerebral arteries Code(s): I63.9 - Cerebral infarction, unspecified Status: Acute Assessment and Plan: Clinically, patient is not doing well and appears to be deteriorating neurologically. Prognosis is grave. Patient is minimally responsive today with acute hepatic and renal failure. Maintaining sinus rhythm, blood pressure stable. Comfort measures appropriate this patient has several severe residual cardiac issues of which she is not a candidate for further intervention short of a marked neurologic recovery in addition to renal and hepatic functional status. Neurology feels pt should be comfort measures as well. Will discuss with family along with Dr. Ross. (2) Atrial fibrillation: Qualifiers: Atrial fibrillation type: paroxysmal Qualified Code(s): I48.0 - Paroxysmal atrial fibrillation Code(s): I48.91 - Unspecified atrial fibrillation Status: Acute Assessment and Plan: Beta-blockers discontinued secondary to pathologic sinus arrest converting from atrial fibrillation to sinus rhythm. Fortunately, patient has had no recurrent events overnight maintaining sinus rhythm. She would recover systemic A/C, however, her neurologic status is dire as she has multiorgan system failure unlikely to survive with any meaningful quality of life. Pt is not a candidate for a pacemaker. . (3) Acute coronary syndrome: Code(s): I24.9 - Acute ischemic heart disease, unspecified Status: Acute Assessment and Plan: Continue medical therapy in this regard. Significant residual CAD complicated by severe mitral regurgitation and severe LV dysfunction. Patient is improving clinically remains weak. Hemodynamically stable at present. Avoid hypotension, intravascular volume depletion. Monitor volume status closely. Patient relatively euvolemic at this time. Delayed presentation ST-elevation inferior myocardial infarction. Continue aspirin and Brilinta without interruption. Continue Metoprolol. Holding statin secondary to elevated LFTs. resume when able. She will eventually need further workup regarding her significant LAD disease/occluded RCA and mitral regurgitation. (4) CAD (coronary artery disease): Qualifiers: Coronary Disease-Associated Artery/Lesion type: [place] artery [place] vs. transplanted heart: [place] heart Associated angina: with unstable angina Qualified Code(s): I25.110 - Atherosclerotic heart disease of [place] coronary artery with unstable angina pectoris Code(s): I25.10 - Atherosclerotic heart disease of [place] coronary artery without angina pectoris Status: Acute Assessment and Plan: As above. Known history of RCA stent remotely (5) Mitral regurgitation: Code(s): I34.0 - Nonrheumatic mitral (valve) insufficiency Status: Acute Assessment and Plan: Severe MR undoubtedly due to posterior medial papillary muscle dysfunction. (6) Cardiomyopathy: Code(s): I42.9 - Cardiomyopathy, unspecified Status: Acute Assessment and Plan: Compensated at this time. Per echo 08/08/2019 EF 30-35% with akinetic anterolateral, inferolateral, apical cap, and basal inferior wall. hypokinetic anterior, apical inferior and mid inferior samuel. Severe pulmonary hypertension RVSP 72 mm mercury, severe mitral valve regurgitation. - Repeat 2D echocardiogram improved LV function EF 35-40% RVSP 53 mm mercury, severe MR persists. (7) History of cardiac arrest: Code(s): Z86.74 - Personal history of sudden cardiac arrest Status: Acute Assessment and Plan: ACS versus hyperkalem
[2019-08-16 16:01] LABS: Albumin Level 3.2 g/dL (3.5-5.1); Alkaline Phosphatase 108 U/L (38-126); Bilirubin,Total 1.6 mg/dL (0.2-1.3); Calcium 8.4 mg/dL (8.4-10.2); Carbon Dioxide 22 mmol/L (22-30); Chloride 99 mmol/L (98-107); Glucose 124 mg/dL (65-105); Potassium 4.6 mmol/L (3.4-5.0); Sodium 139 mmol/L (137-145)
[2019-08-16 16:36] LABS: Blood Urea Nitrogen 122 mg/dL (7-17)
[2019-08-16 16:58] LABS: Estimated Glomerular Filt Rate 11
[2019-08-16 17:40] LABS: Alanine Aminotransferase 2426 U/L (4-35); Aspartate Amino Transferase 2033 U/L (14-36)
--- NOTE | 2019-08-16 18:41 | PC.NURSE ---
This RN spoke with Bryanna at [facility] to arrange a meeting with the patient's family. 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
[2019-08-16 20:31] LABS: Kappa\\Lambda Light Chains 0.91 (0.26-1.65); Lambda Light Chain 40.3 mg/L (5.7-26.3)
[2019-08-17] VITALS: BP 144/84; PULSE 67; RESP 18; RESP 22; TEMP 36; O2SAT 97; O2SAT 99
[2019-08-17 02:00] VITALS: PULSE 71
[2019-08-17 04:00] VITALS: BP 159/97; PULSE 72; RESP 18; RESP 20; TEMP 35.9; O2SAT 97; O2SAT 98
[2019-08-17 04:34] LABS: Basophils Percent Auto 0.2 % (0.2-1.2); Hematocrit 32.2 % (37.0-47.0); Immature Granulocyte Absolute 0.41 K/mm3 (0.00-0.031); Immature Granulocyte Percent A 2.6 % (0-0.5); Lymphocytes Absolute Auto 0.55 K/mm3 (0.9-3.2); Lymphocytes Percent Auto 3.4 % (18.3-44.2); Mean Corpuscular HGB Conc 31.1 g/dl (32-36); Mean Corpuscular Volume 86.8 fl (80-100); Mean Platelet Volume 11.2 fl (7.4-10.4); Monocytes Percent Auto 6.1 % (2.6-8.5); Neutrophils Absolute Auto 14.1 K/mm3 (1.3-6.7); Neutrophils Percent Auto 87.7 % (45.5-73.1); Nucleated Red Blood Cells Absolute Auto 0.4 K/mm3 (0.0-0.012); Nucleated Red Blood Cells Perc 2.3 % (0.0-0.2); Platelet Count Result 211 k/mm3 (150-375); Red Blood Count 3.71 M/mm3 (4.2-5.4); Red Cell Distribution Width 17.2 % (11.5-14.5); White Blood Count 16.1 K/mm3 (4.5-10.0)
[2019-08-17 04:54] LABS: Albumin Level 3.4 g/dL (3.5-5.1); Alkaline Phosphatase 136 U/L (38-126); Bilirubin Direct 0.2 mg/dL (0-0.3); Bilirubin,Total 2.1 mg/dL (0.2-1.3); Carbon Dioxide 23 mmol/L (22-30); Chloride 101 mmol/L (98-107); Glucose 120 mg/dL (65-105); Phosphorus 7.4 mg/dL (2.5-4.5); Potassium 3.8 mmol/L (3.4-5.0); Sodium 137 mmol/L (137-145)
[2019-08-17 05:16] LABS: Microcytosis 1+ (NORMAL); Ovalocytes 1+ (NORMAL); Platelet Estimate Adequate (Adequate)
[2019-08-17 05:17] LABS: Macrocytosis 1+ (NORMAL)
[2019-08-17 06:00] VITALS: PULSE 75
[2019-08-17 06:45] LABS: Blood Urea Nitrogen 124 mg/dL (7-17); Estimated Glomerular Filt Rate 11
[2019-08-17 06:46] LABS: Alanine Aminotransferase 2018 U/L (4-35); Aspartate Amino Transferase 1148 U/L (14-36)
[2019-08-17 08:00] VITALS: BP 114/93; PULSE 60; PULSE 71; RESP 20; TEMP 35.4; O2SAT 95
--- NOTE | 2019-08-17 08:25 | PM.IMPN ---
Progress Note: A&P Assessment and Plan (1) CVA (cerebral vascular accident): Qualifiers: CVA mechanism: embolism Precerebral and cerebral artery: posterior cerebral artery Laterality of affected vessel: bilateral Qualified Code(s): I63.433 - Cerebral infarction due to embolism of bilateral posterior cerebral arteries Code(s): I63.9 - Cerebral infarction, unspecified Status: Acute Assessment and Plan: Noted to have mental status change while here with CT brain on 08/14/2019 showing chronic right frontal, occipital and cerebellar infarctions. MRI brain on 08/14/2019 with acute small scattered left occipital lobe infarctions and acute small to moderate sized right frontal lobe infarction. Brain/neck MRA on 08/15/2019 with 0% stenosis of left and right carotid folds, suggestive sluggish flow to the left posterior cerebral artery, regions of laminar necrosis consistent with prior infarct at the bilateral occipital lobes and along the right frontal lobe gyrus and small region of encephalomalacia in the right cerebellar hemisphere underlying prior right suboccipital craniectomy. Appreciate help from Neurology. I was able to discuss patient's current status with her daughter, Sindy, and by phone yesterday. Explained patient's condition is not improving with multiple organs failing. After family was able to face time with the patient, I spoke with her daughter again who advised me family wishes to take patient home with hospice. Meeting with hospice has been arranged for this morning with hospice to visit with patient afterwards. Hopefully, will be able to accomplish discharging home with hospice today per family wishes. Family has also requested patient remains full code as well as continue present treatment while she is still in the hospital. As result, will continue IV fluids. (2) Atrial fibrillation: Qualifiers: Atrial fibrillation type: paroxysmal Qualified Code(s): I48.0 - Paroxysmal atrial fibrillation Code(s): I48.91 - Unspecified atrial fibrillation Status: Acute Assessment and Plan: New onset while here. Appreciate help from Cardiology. Patient now remains in sinus rhythm on review of telemetry on 08/17/2019. Systemic anticoagulation held with recent embolic CVA and will not plan on starting at this point given plan for hospice. Will monitor while here. (3) Acute kidney injury superimposed on chronic kidney disease: Code(s): N17.9 - Acute kidney failure, unspecified; N18.9 - Chronic kidney disease, unspecified Status: Acute Assessment and Plan: Appreciate help from Nephrology. Creatinine slightly better at 3.80 but still worse than baseline. Most likely multifactorial. Renal ultrasound with mild atrophy of left kidney but no acute changes. Will not recheck labs with plan for hospice. (4) Acute coronary syndrome: Code(s): I24.9 - Acute ischemic heart disease, unspecified Status: Acute Assessment and Plan: Late presentation on admission. Cardiology consulted and appreciate input as noted above. She was taken to the cardiac catheterization lab and noted to have acute thrombosis of left circumflex which was successfully stented. Remains on ASA, Brilinta and atorvastatin while here but plan is for hospice at discharge. Will monitor while here. (5) STEMI (ST elevation myocardial infarction): Qualifiers: Involved coronary artery: left circumflex coronary artery Qualified Code(s): I21.21 - ST elevation (STEMI) myocardial infarction involving left circumflex coronary artery Code(s): I21.3 - ST elevation (STEMI) myocardial infarction of unspecified site Status: Acute Assessment and Plan: Late presentation on admission as noted above. Continue medical treatment as noted above. Plan for hospice as noted above. (6) Acute respiratory failure: Qualifiers: Respiratory failure complication:
[2019-08-17] MEDS: DEXTROSE 5%/0.45% SOD CHL 1,000 ML 50 ML IV CONT (09:06)
[2019-08-17] MEDS: ENOXAPARIN 30 MG/0.3 ML SYRINGE SUB-Q (09:07)
[2019-08-17] MEDS: ASPIRIN 81 MG ENTERIC TABLET PO (09:09)
[2019-08-17] MEDS: TICAGRELOR 90 MG TABLET PO (09:09)
--- NOTE | 2019-08-17 09:29 | PCDIET ---
Nutrition Follow-Up Complete: Nutrition Diagnosis: Inadequate oral intake related to mechanical ventilation as evidenced by NPO status. Nutrition Goal: Patient to meet estimated nutritional needs. Goal not met. Patient remains NPO and is not speaking or following commands. Family meeting with hospice today with anticipated discharge home on hospice. Last recorded weight is 54.9 kg which is increased. +I/O. Bowel Motility: +BM on 08/16/19. Labs Reviewed: Glu (120), BUN (124), Cr (3.8), Alb (3.4) Meds Noted: D5/0.45NS at 50mL/hr Additional Notes: No documented skin breakdown. Will follow closely for plan of care. If family decides to continue aggressive care, consult RD for nutrition support recommendations. NPO appropriate in mean time. Nutrition Monitoring and Evaluation: Follow up every 3 days.
--- NOTE | 2019-08-17 09:32 | PCPTNOTE ---
P.T. held today due to decline in medical status.
[2019-08-17 10:00] VITALS: PULSE 71
--- NOTE | 2019-08-17 18:49 | PM.DS ---
DS: Diagnosis Admitting Diagnosis Admitting Diagnosis: Acute ischemic heart disease, unspecified Discharge Diagnosis (1) CVA (cerebral vascular accident): Qualifiers: CVA mechanism: embolism Laterality of affected vessel: bilateral Precerebral and cerebral artery: posterior cerebral artery Qualified Code(s): I63.433 - Cerebral infarction due to embolism of bilateral posterior cerebral arteries Code(s): I63.9 - Cerebral infarction, unspecified Status: Acute (2) Atrial fibrillation: Qualifiers: Atrial fibrillation type: paroxysmal Qualified Code(s): I48.0 - Paroxysmal atrial fibrillation Code(s): I48.91 - Unspecified atrial fibrillation Status: Acute (3) Acute kidney injury superimposed on chronic kidney disease: Code(s): N17.9 - Acute kidney failure, unspecified; N18.9 - Chronic kidney disease, unspecified Status: Acute (4) Acute coronary syndrome: Code(s): I24.9 - Acute ischemic heart disease, unspecified Status: Acute (5) STEMI (ST elevation myocardial infarction): Qualifiers: Involved coronary artery: left circumflex coronary artery Qualified Code(s): I21.21 - ST elevation (STEMI) myocardial infarction involving left circumflex coronary artery Code(s): I21.3 - ST elevation (STEMI) myocardial infarction of unspecified site Status: Acute (6) Acute respiratory failure: Qualifiers: Respiratory failure complication: hypoxia Qualified Code(s): J96.01 - Acute respiratory failure with hypoxia Code(s): J96.00 - Acute respiratory failure, unspecified whether with hypoxia or hypercapnia Status: Resolved (7) Elevated transaminase level: Code(s): R74.0 - Nonspecific elevation of levels of transaminase and lactic acid dehydrogenase [LDH] Status: Acute (8) CAD (coronary artery disease): Qualifiers: Associated angina: with unstable angina Coronary Disease-Associated Artery/Lesion type: [place] artery [place] vs. transplanted heart: [place] heart Qualified Code(s): I25.110 - Atherosclerotic heart disease of [place] coronary artery with unstable angina pectoris Code(s): I25.10 - Atherosclerotic heart disease of [place] coronary artery without angina pectoris Status: Acute (9) Cardiomyopathy: Qualifiers: Cardiomyopathy type: unspecified Qualified Code(s): I42.9 - Cardiomyopathy, unspecified Code(s): I42.9 - Cardiomyopathy, unspecified Status: Acute (10) Mitral regurgitation: Qualifiers: Cardiac valve disease etiology: etiology unspecified Qualified Code(s): I34.0 - Nonrheumatic mitral (valve) insufficiency Code(s): I34.0 - Nonrheumatic mitral (valve) insufficiency Status: Acute (11) Hypertension: Qualifiers: Hypertension type: essential hypertension Qualified Code(s): I10 - Essential (primary) hypertension Code(s): I10 - Essential (primary) hypertension Status: Acute (12) Ventricular tachycardia: Code(s): I47.2 - Ventricular tachycardia Status: Resolved (13) Pneumonia: Qualifiers: Laterality: bilateral Lung location: lower lobe of lung Pneumonia type: due to unspecified organism Qualified Code(s): J18.9 - Pneumonia, unspecified organism Code(s): J18.9 - Pneumonia, unspecified organism Status: Resolved (14) Hyperkalemia: Code(s): E87.5 - Hyperkalemia Status: Resolved (15) Hyperlipidemia: Qualifiers: Hyperlipidemia type: unspecified Qualified Code(s): E78.5 - Hyperlipidemia, unspecified Code(s): E78.5 - Hyperlipidemia, unspecified Status: Acute DS: Summary Hospital Course Reason for hospitalization: Abnormal labs. Hospital Course: Date of Service of Discharge: August 17, 2019. History of Present Illness: Patient is a 78-year-old who presented to the emergency room due to recent abnormal labs. reported
[2019-08-18 20:03] LABS: Complement Total CH50 >60 U/mL (31-60)
== END 2019-08-17 13:00 | disposition hospice, home (50) | DRG 246 ==
LOC: ANHED 12:13 → ANHICU 14:08 → ANHIMU 08-17 11:27 → ANHICU 08-20 13:41 → ANHIMU 08-20 13:41
PROVIDERS: Family Medicine; Internal Medicine; Internal Medicine Cardiovascular Disease; Internal Medicine Nephrology; Nurse Practitioner; Nurse Practitioner Adult Health; Admitting Provider Internal Medicine; Emergency Provider Emergency Medicine; Visit Provider Hospitalist
PROC: 027034Z Dilation of Coronary Artery, One Artery with Drug-eluting Intraluminal Device, Percutaneous Approach (ICD-10-PCS; CPT 93454; principal; 2019-08-08 14:30)
PROC: 027034Z Dilation of Coronary Artery, One Artery with Drug-eluting Intraluminal Device, Percutaneous Approach (ICD-10-PCS; 2019-08-08 14:30)
PROC: 027034Z Dilation of Coronary Artery, One Artery with Drug-eluting Intraluminal Device, Percutaneous Approach (ICD-10-PCS; 2019-08-08 14:30)
DX: I21.19 ST elevation (STEMI) myocardial infarction involving other coronary artery of inferior wall (principal); R57.0 Cardiogenic shock; J96.01 Acute respiratory failure with hypoxia; J96.02 Acute respiratory failure with hypercapnia; J18.9 Pneumonia, unspecified organism; I50.41 Acute combined systolic (congestive) and diastolic (congestive) heart failure; I63.9 Cerebral infarction, unspecified; N17.9 Acute kidney failure, unspecified; I47.2 Ventricular tachycardia; I42.9 Cardiomyopathy, unspecified; I13.0 Hypertensive heart and chronic kidney disease with heart failure and stage 1 through stage 4 chronic kidney disease, or unspecified chronic kidney disease; G81.94 Hemiplegia, unspecified affecting left nondominant side; Z20.828 Contact with and (suspected) exposure to other viral communicable diseases; R29.810 Facial weakness; R41.82 Altered mental status, unspecified; I48.91 Unspecified atrial fibrillation; N18.9 Chronic kidney disease, unspecified; I34.0 Nonrheumatic mitral (valve) insufficiency; K76.1 Chronic passive congestion of liver; E87.5 Hyperkalemia; I25.10 Atherosclerotic heart disease of native coronary artery without angina pectoris; E78.5 Hyperlipidemia, unspecified; Z95.5 Presence of coronary angioplasty implant and graft
CPT/HCPCS: 31500; 36415; 36600; 51701; 70450; 70544; 70547; 70551; 71045; 76705; 76775; 80048; 80053; 80069; 80074; 80076; 81001; 82140; 82375; 82436; 82550; 82570; 82728; 82805; 82948; 83050; 83615; 83735; 83880; 83883; 84100; 84156; 84300; 84484; 85025; 85027; 85380; 85610; 85652; 85730; 85999; 86038; 86140; 86160; 86162; 86334; 86335; 87040; 87086; 87635; 92610; 92950; 93005; 93306; 93454; 93880; 93970; 94002; 94003; 94640; 96365; 96366; 96367; 96368; 96375; 97161; 97164; 97165; 99291; A9270; C1725; C1751; C1760; C1769; C1874; C1887; C1894; C9606; G0269; J0131; J0360; J0456; J0583; J0610; J0696; J1100; J1644; J1650; J1815; J1940; J2250; J2704; J3010; J3480; J7030; J7040; U0003